=== PATIENT | female | born 1960 | race African-American/Black ===

== ENCOUNTER 2016-10-10 16:18 | Inpatient (IN) | payer MEDICAID ==
[~2016-10-10] VITALS: Ht 154.9 cm; Wt 45.4 kg
[~2016-10-10 16:18] MED LIST: BISACODYL5 MG ORAL; CIPRO500 MG PO; COLACE100 MG ORAL; FERROUS SULFAT325 MG ORAL; HYDROCODON-ACE1 EA13 ORAL; LISINOPRIL5 MG ORAL; METRONIDAZOLE500 MG ORAL; NKM; NORCO 5-325 TA1 EACH ORAL; PROTONIX20 MG ORAL; THEOPHYLLINE A100 MG ORAL; ZOFRAN4 M1 ORAL
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
[2016-10-10 16:57] VITALS: BP 144/102
[2016-10-10 18:47] LABS: BASOPHILS % (AUTO) 0.5 % (0.0-2.0); EOSINOPHILS % (AUTO) 0.2 % (0.0-3.0); LYMPHOCYTES % (AUTO) 18.3 % (20.0-45.0); MEAN CORPUSCULAR HEMOGLOBIN 27.3 PG (27.0-31.0); MEAN CORPUSCULAR HGB CONC 31.1 G/DL (32.0-36.0); MEAN CORPUSCULAR VOLUME 88 FL (80-99); MEAN PLATELET VOLUME 5.8 FL (6.5-10.1); MONOCYTES % (AUTO) 4.1 % (1.0-10.0); NEUTROPHILS % (AUTO) 76.8 % (45.0-75.0); PLATELET COUNT 310 K/UL (150-450); RED BLOOD COUNT 4.42 M/UL (4.20-5.40); RED CELL DISTRIBUTION WIDTH 18.5 % (11.6-14.8); WHITE BLOOD COUNT 4.9 K/UL (4.8-10.8)
[2016-10-10 19:01] LABS: INR 1.1 (0.9-1.1); PROTHROMBIN TIME 11.1 SEC (9.30-11.50)
[2016-10-10 19:02] LABS: ALANINE AMINOTRANSFERASE 12 U/L (3-33); ALBUMIN/GLOBULIN RATIO 0.9 (1.0-2.7); ANION GAP 13 (5-15); ASPARTATE AMINO TRANSFERASE 21 U/L (5-40); CALCIUM 8.8 mg/dL (8.6-10.2); CARBON DIOXIDE 27 mEQ/L (20-30); CHLORIDE 107 mEQ/L (98-107); CREATININE 0.8 mg/dL (0.5-0.9); GLOMERULAR FILTRATION RATE > 60 mL/min (>60); HEMOLYSIS 6; LIPASE 14 U/L (< 60); POTASSIUM 2.9 mEQ/L (3.4-4.9); SODIUM 147 mEQ/L (135-145); TOTAL PROTEIN 6.9 g/dL (6.6-8.7); TROPONIN I < 0.30 ng/mL (<=0.30)
[2016-10-10 19:54] VITALS: BP 140/95
[2016-10-10] MEDS ORDERED: Mylanta II UD 30ml ORAL PRN (22:00)
[2016-10-10] MEDS ORDERED: Miralax 17gm pkt ORAL PRN (22:00)
[2016-10-10] MEDS ORDERED: Nitroglycerin Subl 0.4mg tab (Bottle Of 25) SL PRN (22:00)
[2016-10-10 22:26] VITALS: BP 113/78
[2016-10-10 23:19] VITALS: BP 126/87
[2016-10-11] VITALS (7 sets, daily range): BP systolic 120–133; BP diastolic 82–100
[2016-10-11] MEDS ORDERED: UNOBMED (00:26)
[2016-10-11] MEDS ORDERED: Zosyn 3.375gm inj ONE (02:17)
[2016-10-11] MEDS: D5W w/KCl 20mEq 1,000 ML IV SCH ×2 (02:49→13:50)
[2016-10-11] MEDS: Piperacillin/Tazobactam 3.375 GM in NS 110 ML IVPB SCH ×3 (02:50→16:31)
[2016-10-11 08:14] LABS: BASOPHILS % (AUTO) 0.9 % (0.0-2.0); EOSINOPHILS % (AUTO) 0.3 % (0.0-3.0); LYMPHOCYTES % (AUTO) 17.6 % (20.0-45.0); MEAN CORPUSCULAR HEMOGLOBIN 27.5 PG (27.0-31.0); MEAN CORPUSCULAR HGB CONC 31.4 G/DL (32.0-36.0); MEAN CORPUSCULAR VOLUME 88 FL (80-99); MEAN PLATELET VOLUME 5.9 FL (6.5-10.1); MONOCYTES % (AUTO) 5.1 % (1.0-10.0); NEUTROPHILS % (AUTO) 76.1 % (45.0-75.0); PLATELET COUNT 307 K/UL (150-450); RED BLOOD COUNT 4.63 M/UL (4.20-5.40); RED CELL DISTRIBUTION WIDTH 18.5 % (11.6-14.8); WHITE BLOOD COUNT 4.2 K/UL (4.8-10.8)
[2016-10-11 08:27] LABS: ALANINE AMINOTRANSFERASE 11 U/L (3-33); ALBUMIN/GLOBULIN RATIO 0.8 (1.0-2.7); AMYLASE 32 U/L (10-110); ANION GAP 15 (5-15); ASPARTATE AMINO TRANSFERASE 19 U/L (5-40); CALCIUM 9.1 mg/dL (8.6-10.2); CARBON DIOXIDE 25 mEQ/L (20-30); CHLORIDE 108 mEQ/L (98-107); CREATININE 0.8 mg/dL (0.5-0.9); GLOMERULAR FILTRATION RATE > 60 mL/min (>60); HEMOLYSIS 5; LIPASE 11 U/L (< 60); POTASSIUM 3.3 mEQ/L (3.4-4.9); SODIUM 148 mEQ/L (135-145); TOTAL PROTEIN 6.9 g/dL (6.6-8.7)
[2016-10-11] MEDS: Morphine Sulfate 2mg/ml Inj IVP PRN ×2 (08:58→20:43)
[2016-10-11] MEDS: Heparin 5000 units/ml inj SUBQ SCH ×2 (09:01→21:48)
--- NOTE | 2016-10-11 11:06 | Diagnostic Imaging Report ---
Indication: Abdominal pain and distention. History of cervical carcinoma Technique: Continuous helical transaxial imaging of the abdomen and pelvis was obtained from the lung bases to the pubic symphysis during intravenous contrast administration. Coronal 2-D reformats were also obtained. Study obtained in a Siemens sensation [address] Total Dose length Product (DLP): [address] Dose Index Volume (CTDIvol): 13 mGy Comparison: None Findings: There is massive distention of the colon which is air and fluid-filled. The transition in the area of the sigmoid colon is not well seen. Is a fairly abrupt cut off of column of air within the upper part of the sigmoid colon. Within the pelvis and including this area of nonvisualized sigmoid, there is a suggestion of heterogeneous enhancing tumor. Therefore the possibility of colonic obstruction should be considered. Anterior wall the rectum distal to the suspected area of obstruction is abnormal (for example image 83, series 3). The patient has a history of cervical carcinoma. Pelvic enhancing masses were noted previously as well but colonic distention was not seen on the last study. It is difficult to measure and characterize the pelvic masses present but overall the tumor appears to be left para midline on transaxial images and measures 4 cm transversely 5-6 cm AP and 4 cm craniocaudal. There is a moderate degree of ascites present. The patient is cachectic. There is generalized anasarca noted involving the body wall. The uterus is also heterogeneous and moderately calcified due to fibroids. A fundal 5 cm fibroid is clearly arising from the uterus. There is a second mass, partially calcified measuring 6 x 4 CM, possibly exophytic right posterior lateral fibroid versus part of the cervical carcinoma. Trace bilateral pleural effusions are present with posterior basilar atelectasis. There is a rounded focus that is pleural-based measuring 2 CM at the left lung base. This may be rounded atelectasis or pneumonia, but could also represent a metastatic focus and was seen previously. Followup is recommended. Generalized cardiomegaly is present. Gallstones are present. There is a liver cyst present. Hiatal hernia is noted. There is an abnormal low-density lesion in the spleen measuring approximately 3.5 cm. This could be a benign mass. Metastatic neoplasm is not excluded. The pancreas is grossly unremarkable. Enhancement phases arterial and the kidneys are symmetric in enhancement as such. Impression: Massive colonic distention. The findings are suspected to be secondary to sigmoid rectal obstruction secondary to extensive pelvic tumor from advanced cervical carcinoma. Margins of the tumor are difficult to characterize on this examination in part due to presence of confounding uterine fibroids. Moderate ascites may be malignant ascites. 2 cm left basilar posterior pleural based nodule. Metastatic disease versus rounded atelectasis. Anasarca. Gallstones Liver hypodensities probably cystic. Trace bilateral pleural effusions. The CT scanner at [facility] is accredited by the [employer] and the scans are performed using protocols designed to limit radiation exposure to as low as reasonably achievable to attain images of sufficient resolution adequate for diagnostic evaluation.
--- NOTE | 2016-10-11 11:47 | Diagnostic Imaging Report ---
Indication: NG tube Comparison: None A single view chest radiograph was obtained. Findings: NG tube is present and well situated with both the proximal port and tip in the stomach. There is a moderate gaseous distention of the colon. Demonstrated as well. Heart is enlarged. Impression: NG tube in good position
--- NOTE | 2016-10-11 16:37 | History and Physical ---
History of Present Illness General Date patient seen: Oct 11, 2016 Reason for Hospitalization: Abdominal Pain Present Illness HPI 56-year-old female with hx of cervical cancer, brought in by paramedics after increased bowel pain, nausea and vomiting. The patient denied having any fever. She had not been vomiting. Pt was diagnosed to have ileus, received NG tube to suction in ER and admitted for further work up. Allergies: Coded Allergies: No Known Allergies (Unverified , 04/13/15) Medication History Scheduled Lisinopril (Lisinopril*), 5 MG ORAL Q12HR No Known Medications* (NKM - No Known Medications*), 0 ., (Reported) No Known Medications* (NKM - No Known Medications*), 0 ., (Reported) No Known Medications* (NKM - No Known Medications*), 0 ., (Reported) Pantoprazole Sodium (Protonix), 40 MG ORAL DAILY, (Reported) Pantoprazole Sodium (Protonix), 40 MG ORAL DAILY, (Reported) Theophylline (Theodur*), 100 MG ORAL EVERY 12 HOURS Scheduled PRN Ondansetron (Zofran), 4 MG ORAL Q8HR PRN for Nausea & Vomiting, (Reported) Miscellaneous Medications Unable to Obtain Medications (Unable To Obtain Meds), (Reported) Patient History Healthcare decision maker Resuscitation status Full Code Advanced Directive on File Past Medical/Surgical History Past Medical/Surgical History: (1) Metastatic adenocarcinoma Review of Systems All Other Systems: negative except mentioned in HPI Physical Exam General Appearance: cachetic Lines, tubes and drains: peripheral HEENT: normocephalic, atraumatic Neck: non-tender, normal alignment Respiratory/Chest: chest wall non-tender, lungs clear Breasts: no masses Cardiovascular/Chest: normal peripheral pulses Abdomen: normal bowel sounds Last 24 Hour Vital Signs Date Time Temp Pulse Resp B/P Pulse Ox O2 Delivery O2 Flow Rate FiO2 10/11/16 11:19 98.0 100 20 121/85 97 Room Air 10/11/16 09:28 97.9 10/11/16 08:07 97.9 95 19 132/92 99 Room Air 10/11/16 04:00 96.0 91 18 120/82 100 Room Air 10/11/16 01:00 97.7 98 18 129/96 99 Room Air 10/11/16 00:34 97.8 96 18 126/87 100 Room Air 10/11/16 00:00 96.6 104 18 133/100 96 Room Air 10/10/16 23:19 97.8 96 18 126/87 100 Room Air 10/10/16 22:26 97.8 102 19 113/78 100 Room Air 10/10/16 19:54 97.8 104 22 140/95 99 Room Air 10/10/16 16:57 97.8 98 18 144/102 99 Room Air Intake and Output 10/10/16 10/11/16 19:00 07:00 Intake Total 110.0 ml Output Total 50 ml Balance 60.0 ml IV Total 110.0 ml Output Urine Total 0 ml Gastric Drainage Total 50 ml Laboratory Tests Test 10/10/16 18:36 10/11/16 07:15 White Blood Count 4.9 K/UL (4.8-10.8) 4.2 K/UL (4.8-10.8) L Red Blood Count 4.42 M/UL (4.20-5.40) 4.63 M/UL (4.20-5.40) Hemoglobin 12.0 G/DL (12.0-16.0) 12.7 G/DL (12.0-16.0) Hematocrit 38.7 % (37.0-47.0) 40.6 % (37.0-47.0) Mean Corpuscular Volume 88 FL (80-99) 88 FL (80-99) Mean Corpuscular Hemoglobin 27.3 PG (27.0-31.0) 27.5 PG (27.0-31.0) Mean Corpuscular Hemoglobin Concent 31.1 G/DL (32.0-36.0) L 31.4 G/DL (32.0-36.0) L Red Cell Distribution Width 18.5 % (11.6-14.8) H 18.5 % (11.6-14.8) H Platelet Count 310 K/UL (150-450) 307 K/UL (150-450) Mean Platelet Volume 5.8 FL (6.5-10.1) L 5.9 FL (6.5-10.1) L Neutrophils (%) (Auto) 76.8 % (45.0-75.0) H 76.1 % (45.0-75.0) H Lymphocytes (%) (Auto) 18.3 % (20.0-45.0) L 17.6 % (20.0-45.0) L Monocytes (%) (Auto) 4.1 % (1.0-10.0) 5.1 % (1.0-10.0) Eosinophils (%) (Auto) 0.2 % (0.0-3.0) 0.3 % (0.0-3.0) Basophils (%) (Auto) 0.5 % (0.0-2.0) 0.9 % (0.0-2.0) Prothrombin Time 11.1 SEC (9.30-11.50) Prothromb Time International Ratio 1.1 (0.9-1.1) Activated Partial Thromboplast Time 27 SEC (23-33) 25 SEC (23-33) Sodium Level 147 mEQ/L (135-145) H 148 mEQ/L (135-145) H Potassium Level 2.9 mEQ/L (3.4-4.9) L 3.3 mEQ/L (3.4-4.9) L Chloride Level 107 mEQ/L (98-107) 108 mEQ/L (98-107) H Carbon Dioxide Level 27 mEQ/L (20-30) 25 mEQ/L (20-30) Anion Gap 13 (5-15) 15 (5-15) Blood Urea Nitrogen 17 mg/dL (7-23) 19 mg/dL (7-23) Creatinine 0.8 mg/dL (0.5-0.9) 0.8 mg/dL (0.5-0.9) Estimat Glomerular Filtration Rate > 60 mL/min (>60) > 60 mL/min (>60) Glucose Level 131 mg/dL (74-106) H 102 mg/dL (74-106) Calcium Level 8.8 mg/dL (8.6-10.2) 9.1 mg/dL (8.6-10.2) Total Bilirubin 0.5 mg/dL (0.0-1.2) 0.6 mg/dL (0.0-1.2) Aspartate Amino Transf (AST/SGOT) 21 U/L (5-40) 19 U/L (5-40) Alanine Aminotransferase (ALT/SGPT) 12 U/L (3-33) 11 U/L (3-33) Alkaline Phosphatase 45 U/L (35-104) 46 U/L (35-104) Troponin I < 0.30 ng/mL (<=0.30) Total Protein 6.9 g/dL (6.6-8.7) 6.9 g/dL (6.6-8.7) Albumin 3.4 g/dL (3.5-5.2) L 3.1 g/dL (3.5-5.2) L Globulin 3.5 g/dL 3.8 g/dL Albumin/Globulin Ratio 0.9 (1.0-2.7) L 0.8 (1.0-2.7) L Lipase 14 U/L (< 60) 11 U/L (< 60) Amylase Level 32 U/L (10-110) Height (Feet): 5 Height (Inches): 1.00 Weight (Pounds): 100 Medications Current Medications Medications (Trade) Dose Ordered Sig/Renay Route PRN Reason Start Time Stop Time Status Last Admin Dose Admin Acetaminophen (Tylenol) 650 mg Q4H PRN ORAL fever 10/10/16 22:00 11/09/16 21:59 Al Hydroxide/Mg Hydroxide (Mylanta II) 30 ml Q6H PRN ORAL dyspepsia 10/10/16 22:00 11/09/16 21:59 Dextrose STAT PRN IV Hypoglycemia 10/10/16 22:00 11/09/16 21:59 Dextrose/ Electrolytes (D5W w/KCl 20mEq) 1,000 ml @ 75 mls/hr [id number] IV 10/11/16 00:30 11/10/16 00:29 10/11/16 02:49 Diphenhydramine HCl (Benadryl) 25 mg Q6H PRN ORAL Itching/Pruritis 10/10/16 22:00 11/09/16 21:59 Heparin Sodium (Porcine) (Heparin 5000 units/ml) 5,000 units EVERY 12 HOURS SUBQ 10/11/16 09:00 11/10/16 08:59 10/11/16 09:01 Morphine Sulfate (Morphine Sulfate) 2 mg Q4H PRN IVP severe Pain (Pain Scale 7-10) 10/10/16 22:00 10/17/16 21:59 10/11/16 08:58 Nitroglycerin (Ntg) 0.4 mg Q5M X 3 DOSES PRN SL Prn Chest Pain 10/10/16 22:00 11/09/16 21:59 Ondansetron HCl (Zofran) 4 mg Q6H PRN IVP Nausea & Vomiting 10/10/16 22:00 11/09/16 21:59 Piperacillin Sod/ Tazobactam Sod 3.375 gm/Sodium Chloride 110 ml @ 27.5 mls/hr Q8H IVPB 10/11/16 00:30 10/18/16 00:29 10/11/16 16:31 Polyethylene Glycol (Miralax) 17 gm HSPRN PRN ORAL Constipation 10/10/16 22:00 11/09/16 21:59 Temazepam (Restoril) 15 mg HSPRN PRN ORAL Insomnia 10/10/16 22:00 10/17/16 21:59 Assessment/Plan Problem List: (1) SBO (small bowel obstruction) ICD Codes: K56.69 - SBO (small bowel obstruction) SNOMED: 377189501 (2) Metastatic adenocarcinoma ICD Codes: C79.9 - Secondary malignant neoplasm of unspecified site SNOMED: 8182443, 049589065 (3) Colonic obstruction ICD Codes: K56.60 - Unspecified intestinal obstruction SNOMED: 58555889 (4) Abdominal distension ICD Codes: R14.0 - Abdominal distension SNOMED: 59195131 Assessment/Plan Npo Iv fluids Surgery consult check electrolytes. APPLE COLON Oct 11, 2016 16:37
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
--- NOTE | 2016-10-11 19:14 | General Progress Note ---
Progress Note Progress Note Surgery: Patient seen and examined at bedside. Please refer to Dr. Garcia's consult note for details of surgical consultation. I am seeing the patient for per operative planning. Patient has history of cervical tumor which she has unfortunately not continued care for. She has known about the tumor and its severity but has not been compliant with medical care. She presented recently with abdominal pain, nausea, emesis, and massive abdominal distention. When seen at bedside, patient is uncomfortable but stable. she states that her abdomen has been enlarging for weeks now. Last two weeks it has gotten more severe and she has been having worsening abdominal pain. She has been eating but throws up every other day or more often depending on how much she has eaten. She states that she does not have significant bowel movements but does have small liquid bm's every few days. She has been losing weight and looks fairly cachectic when seen. Her abdomen is severely distended and tympanic. it is tender but no peritonitis. CT reviewed and demonstrates massive colonic dilatation with transition point distally where large tumor seen. She also has significant ascites. She does not desire chemotx or radiation and has not wanted it in the past. When speaking to her about her goals, she states that she just wants to continue with treatment so that she can eat. I explained to her in detail the above findings. I explained that if nothing is done she is at risk for perforation and her condition will deteriorate. When discussing treatment options with her, she states that she would be okay to a diverting loop colostomy so that she can start eating again. She understands the severity of her condition and expresses that she just wants to be able to eat again. I explained to her that she is a high risk surgery given multiple prior abdominal operations including one in 2011 where she was noted to have lots of adhesions and hostile abdomen. I explained to her that she is at risk for potential enterotomies, bowel resections, re operations, drains, wound infection , wound dehiscence, and ostomy. She also has high risk for bleeding, infection , post operative pulmonary and cardiac complications. She is very malnourished and cachectic on exam. Unfortunately she is near total obstruction if not totally obstructed and needs urgent surgery. 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 This would complicate surgery and potential surgery can be futile. Her prognosis is guarded given above and she understands this. She expressed desire to proceed with surgery knowing all of the above. Will schedule her for surgery tomorrow morning. Toni Marquis Oct 11, 2016 19:14
--- NOTE | 2016-10-11 19:16 | General Progress Note ---
Progress Note Progress Note Full consult dictated. Succinctly: Large bowel obstruction in recto-sigmoid colon secondary to large cervical CA diagnosed at [facility] last year, no chemoradiation tx because of patient's poor compliance, now here on several occasions because of colonic obstruction. Cervical CA, large, no obvious distant mets, but local extension with colonic obstruction Ascites Malnutrition Dehydration Patient mneeds urgent loop colostomy for decompression, understands risks, possible complications because of ascites, obstruction and overall advanced disease and consents. Scheduled for tomorrow am with Drs. Marquis and Tank. J CARLOS BAER Oct 11, 2016 19:16
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
[2016-10-12] VITALS (30 sets, daily range): BP systolic 80–129; BP diastolic 45–88
[2016-10-12] MEDS: Piperacillin/Tazobactam 3.375 GM in NS 110 ML IVPB SCH ×4 (00:49→22:00)
[2016-10-12] MEDS: Morphine Sulfate 2mg/ml Inj IVP PRN ×2 (00:59→05:51)
[2016-10-12] MEDS: D5W w/KCl 20mEq 1,000 ML IV SCH ×2 (00:59→21:25)
[2016-10-12 07:15] LABS: ALANINE AMINOTRANSFERASE 9 U/L (3-33); ALBUMIN/GLOBULIN RATIO 0.9 (1.0-2.7); ANION GAP 16 (5-15); ASPARTATE AMINO TRANSFERASE 17 U/L (5-40); CALCIUM 9.2 mg/dL (8.6-10.2); CARBON DIOXIDE 25 mEQ/L (20-30); CHLORIDE 104 mEQ/L (98-107); CREATININE 0.8 mg/dL (0.5-0.9); GLOMERULAR FILTRATION RATE > 60 mL/min (>60); HEMOLYSIS 1; MAGNESIUM 2.1 mg/dL (1.7-2.5); POTASSIUM 3.9 mEQ/L (3.4-4.9); SODIUM 145 mEQ/L (135-145); TOTAL PROTEIN 6.4 g/dL (6.6-8.7)
[2016-10-12 07:26] LABS: BASOPHILS % (AUTO) 0.4 % (0.0-2.0); EOSINOPHILS % (AUTO) 0.4 % (0.0-3.0); LYMPHOCYTES % (AUTO) 23.7 % (20.0-45.0); MEAN CORPUSCULAR HEMOGLOBIN 28.3 PG (27.0-31.0); MEAN CORPUSCULAR HGB CONC 32.3 G/DL (32.0-36.0); MEAN CORPUSCULAR VOLUME 87 FL (80-99); MEAN PLATELET VOLUME 6.3 FL (6.5-10.1); MONOCYTES % (AUTO) 5.4 % (1.0-10.0); NEUTROPHILS % (AUTO) 70.1 % (45.0-75.0); PLATELET COUNT 333 K/UL (150-450); RED BLOOD COUNT 3.99 M/UL (4.20-5.40); RED CELL DISTRIBUTION WIDTH 18.6 % (11.6-14.8); WHITE BLOOD COUNT 3.6 K/UL (4.8-10.8)
[2016-10-12] MEDS: Heparin 5000 units/ml inj SUBQ SCH ×2 (07:53→21:33)
[2016-10-12] MEDS ORDERED: Pantoprazole Inj IVP SCH (09:00)
[2016-10-12] MEDS ORDERED: Propofol 10mg/ml 100ml btl IV ONE (12:45)
[2016-10-12] MEDS ORDERED: Midazolam 2mg/2ml Inj ONE (12:45)
[2016-10-12] MEDS ORDERED: NS Irrig 1000ml ONE (12:45)
[2016-10-12] MEDS ORDERED: Zemuron 50mg/5ml Inj IV ONE (12:45)
[2016-10-12] MEDS ORDERED: ePHEDrine 50mg/ml Inj ONE ×3 (12:45→15:08)
[2016-10-12] MEDS ORDERED: fentaNYL 100 mcg/2 mL IV ONE (12:45)
[2016-10-12] MEDS ORDERED: Sterile Water Irrig 1000ml IRRIG ONE (12:45)
[2016-10-12] MEDS ORDERED: NS Irrig 1000ml IRRIG ONE (12:50)
--- NOTE | 2016-10-12 13:02 | General Progress Note ---
Progress Note Progress Note Surgery: Patient seen and examined at bedside this morning. States still has abdominal pain that is not improved. No flatus or BM. No nausea or emesis. NG tube output minimal. Rectal exam demonstrated a large hard non-mobile completely obstructing extrinsic tumor. I again discussed all findings with her. she states that she has thought about it overnight and knowing the high risks, morbidity, and potential mortality from procedure she would still like to proceed. She has spoken to her daughter Carolyn as well as have I. Daughter away of mothers condition. Will proceed with exploratory lap with hopes of diverting ostomy. She understands that given multiple prior surgery and progressive cancer this may not be possible but would like to proceed. All questions answered. consent obtained. will proceed with surgery. Toni Marquis Oct 12, 2016 13:02
--- NOTE | 2016-10-12 13:20 | GI Progress Note ---
Assessment/Plan Problems: (1) Dilated bowel ICD Codes: K59.3 - Megacolon, not elsewhere classified SNOMED: 98445302 (2) Abdominal pain ICD Codes: R10.9 - Abdominal pain SNOMED: 62787910 (3) Anemia ICD Codes: D64.9 - Anemia SNOMED: 666433524 (4) SBO (small bowel obstruction) ICD Codes: K56.69 - SBO (small bowel obstruction) SNOMED: 603071980 (5) Metastatic adenocarcinoma ICD Codes: C79.9 - Secondary malignant neoplasm of unspecified site SNOMED: 7060773, 049558344 Status: unchanged Status Narrative Discussed with Dr. Valdez. Assessment/Plan lipase unremarkable per surgery >> large hard non-mobile completely obstructing extrinsic tumor surgical to proceed maintain NPO + IVFs maintain NGTFs for bowel decompression >> low output ppi fu labs Subjective Subjective abdominal pain no improvement abdominal distention Objective Last 24 Hour Vital Signs Date Time Temp Pulse Resp B/P Pulse Ox O2 Delivery O2 Flow Rate FiO2 10/12/16 11:35 97.2 76 15 115/77 98 10/12/16 08:16 97.0 83 15 125/82 100 Room Air 10/12/16 04:00 97.7 83 18 129/88 97 Room Air 10/12/16 00:00 97.6 80 18 114/84 100 Room Air 10/11/16 21:48 97.0 10/11/16 19:00 97.3 95 20 124/92 99 Room Air 10/11/16 16:00 97.0 93 20 126/90 100 Room Air Intake and Output 10/11/16 10/12/16 18:59 06:59 Intake Total 335 ml 525 ml Output Total 130 ml 175 ml Balance 205 ml 350 ml Intake Oral 0 ml IV Total 335 ml 525 ml Gastric Drainage Total 130 ml Other 175 ml # Voids 1 4 # Bowel Movements 1 Laboratory Tests Test 10/12/16 05:30 White Blood Count 3.6 K/UL (4.8-10.8) L Red Blood Count 3.99 M/UL (4.20-5.40) L Hemoglobin 11.3 G/DL (12.0-16.0) L Hematocrit 34.8 % (37.0-47.0) L Mean Corpuscular Volume 87 FL (80-99) Mean Corpuscular Hemoglobin 28.3 PG (27.0-31.0) Mean Corpuscular Hemoglobin Concent 32.3 G/DL (32.0-36.0) Red Cell Distribution Width 18.6 % (11.6-14.8) H Platelet Count 333 K/UL (150-450) Mean Platelet Volume 6.3 FL (6.5-10.1) L Neutrophils (%) (Auto) 70.1 % (45.0-75.0) Lymphocytes (%) (Auto) 23.7 % (20.0-45.0) Monocytes (%) (Auto) 5.4 % (1.0-10.0) Eosinophils (%) (Auto) 0.4 % (0.0-3.0) Basophils (%) (Auto) 0.4 % (0.0-2.0) Sodium Level 145 mEQ/L (135-145) Potassium Level 3.9 mEQ/L (3.4-4.9) Chloride Level 104 mEQ/L (98-107) Carbon Dioxide Level 25 mEQ/L (20-30) Anion Gap 16 (5-15) H Blood Urea Nitrogen 24 mg/dL (7-23) H Creatinine 0.8 mg/dL (0.5-0.9) Estimat Glomerular Filtration Rate > 60 mL/min (>60) Glucose Level 109 mg/dL (74-106) H Calcium Level 9.2 mg/dL (8.6-10.2) Phosphorus Level 4.0 mg/dL (2.5-4.8) Magnesium Level 2.1 mg/dL (1.7-2.5) Total Bilirubin 0.5 mg/dL (0.0-1.2) Aspartate Amino Transf (AST/SGOT) 17 U/L (5-40) Alanine Aminotransferase (ALT/SGPT) 9 U/L (3-33) Alkaline Phosphatase 43 U/L (35-104) Total Protein 6.4 g/dL (6.6-8.7) L Albumin 3.1 g/dL (3.5-5.2) L Globulin 3.3 g/dL Albumin/Globulin Ratio 0.9 (1.0-2.7) L Height (Feet): 5 Height (Inches): 1.00 Weight (Pounds): 100 General Appearance: no apparent distress, alert, thin Cardiovascular: normal rate Respiratory/Chest: normal breath sounds Abdominal Exam: distended - hard, firm Kym Javier N.P. Oct 12, 2016 13:20
--- NOTE | 2016-10-12 13:41 | Pre-Procedure Note/Attestation ---
Pre-Procedure Note/Attestation Complete Prior to Procedure Planned Procedure: not applicable Procedure Narrative: exploratory laparotomy, possible bowel resection, ostomy creation Indications for Procedure Pre-Operative Diagnosis: complete large bowel obstruction Attestation I attest that I discussed the nature of the procedure; its benefits; risks and complications; and alternatives (and the risks and benefits of such alternatives ), prior to the procedure, with the patient (or the patient's legal branch service representative). I attest that, if there was a reasonable possibility of needing a blood transfusion, the patient (or the patient's legal branch service representative) was given the [facility] standardized written summary, pursuant to the Michael Stephanie Blood Safety Act ([place] Health and Safety Code # 1645, as amended). I attest that I re-evaluated the patient just prior to the surgery and that there has been no change in the patient's H&P, except as documented below: Toni Marquis Oct 12, 2016 13:41
[2016-10-12] MEDS ORDERED: Tubing IV Secondary IV ONE (15:00)
[2016-10-12] MEDS ORDERED: D5W 275ml ONE (15:00)
[2016-10-12] MEDS ORDERED: Bacitracin 50000 Units Vial ONE (15:22)
[2016-10-12] MEDS ORDERED: DOPamine 400mg/250ml 250 ML IV ONE (15:29)
--- NOTE | 2016-10-12 16:29 | Anethesia Preoperative Eval ---
Anesthesia Pre-op PMH/ROS General Date of Evaluation: Oct 12, 2016 Time of Evaluation: 12:00 Anesthesiologist: Gianni ASA Score: ASA 4 Mallampati Score Class I : Soft palate, uvula, fauces, pillars visible Class II: Soft palate, uvula, fauces visible Class III: Soft palate, base of uvula visible Class IV: Only hard plate visible Mallampati Classification: Class II Surgeon: Benitez Diagnosis: Bowel obstruction, metastatic cervical CA Surgical Procedure: Exploratory laparotomy, ileostomy, partial colon resection Family History: no anesthesia problems Allergies: Coded Allergies: No Known Allergies (Unverified , 04/13/15) Medications: see eMAR Past Medical History Cardiovascular: Reports: HTN, other - Heart failure (as per patient) Pulmonary: Denies: COPD, RODNEY, asthma, other Gastrointestinal/Genitourinary: Denies: CRI, ESRD, GERD, other Neurologic/Psychiatric: Denies: CVA, TIA, dementia, depression/anxiety, other Endocrine: Denies: DM, hypothyroidism, other, steroids HEENT: Denies: TAKOTNA (L), TAKOTNA (R), cataract (L), cataract (R), glaucoma, other Hematology/Immune: Denies: DVT, anemia, bleeding disorder, other PMH Narrative: HTN, ?heart failure?, cervical CA (metastatic), bowel obstruction Anesthesia Pre-op Phys. Exam Physician Exam Last Vital Signs Date Time Temp Pulse Resp B/P Pulse Ox O2 Delivery O2 Flow Rate FiO2 10/12/16 11:35 97.2 76 15 115/77 98 10/12/16 08:16 Room Air Constitutional: NAD, other - Cachectic Neurologic: CN 2-12 intact Cardiovascular: RRR, no M/R/G Respiratory: CTA Gastrointestinal: S/NT/ND Airway Exam Mallampati Score: Class II MO: full ROM: full Teeth: missing, broken Anesthesia Pre-op A/P Labs Hematology Test 10/12/16 05:30 White Blood Count 3.6 K/UL (4.8-10.8) L Red Blood Count 3.99 M/UL (4.20-5.40) L Hemoglobin 11.3 G/DL (12.0-16.0) L Hematocrit 34.8 % (37.0-47.0) L Mean Corpuscular Volume 87 FL (80-99) Mean Corpuscular Hemoglobin 28.3 PG (27.0-31.0) Mean Corpuscular Hemoglobin Concent 32.3 G/DL (32.0-36.0) Red Cell Distribution Width 18.6 % (11.6-14.8) H Platelet Count 333 K/UL (150-450) Mean Platelet Volume 6.3 FL (6.5-10.1) L Neutrophils (%) (Auto) 70.1 % (45.0-75.0) Lymphocytes (%) (Auto) 23.7 % (20.0-45.0) Monocytes (%) (Auto) 5.4 % (1.0-10.0) Eosinophils (%) (Auto) 0.4 % (0.0-3.0) Basophils (%) (Auto) 0.4 % (0.0-2.0) Chemistry Test 10/12/16 05:30 Sodium Level 145 mEQ/L (135-145) Potassium Level 3.9 mEQ/L (3.4-4.9) Chloride Level 104 mEQ/L (98-107) Carbon Dioxide Level 25 mEQ/L (20-30) Anion Gap 16 (5-15) H Blood Urea Nitrogen 24 mg/dL (7-23) H Creatinine 0.8 mg/dL (0.5-0.9) Estimat Glomerular Filtration Rate > 60 mL/min (>60) Glucose Level 109 mg/dL (74-106) H Calcium Level 9.2 mg/dL (8.6-10.2) Phosphorus Level 4.0 mg/dL (2.5-4.8) Magnesium Level 2.1 mg/dL (1.7-2.5) Total Bilirubin 0.5 mg/dL (0.0-1.2) Aspartate Amino Transf (AST/SGOT) 17 U/L (5-40) Alanine Aminotransferase (ALT/SGPT) 9 U/L (3-33) Alkaline Phosphatase 43 U/L (35-104) Total Protein 6.4 g/dL (6.6-8.7) L Albumin 3.1 g/dL (3.5-5.2) L Globulin 3.3 g/dL Albumin/Globulin Ratio 0.9 (1.0-2.7) L Studies Pre-op Studies: EKG Risk Assessment & Plan Assessment: Metastatic cervical CA and bowel obstruction now for e-lap, partial colon resection, ileostomy Plan: GETA, CVP Status Change Before Surgery: No Pre-Antibiotics Drug: Zosyn Given Within 1 Hr of Incision: Yes Time Given: 14:10 BRAEDEN FAYE M.D. Oct 12, 2016 16:29
[2016-10-12] MEDS ORDERED: LORazepam Inj 2mg/ml 1ml IV PRN ×2 (16:30→20:15)
[2016-10-12] MEDS ORDERED: Meperidine 25mg/ml Inj IV PRN ×2 (16:30→20:15)
[2016-10-12] MEDS ORDERED: Hydromorphone 0.5mg/0.5ml inj IVP PRN ×2 (16:30→20:15)
--- NOTE | 2016-10-12 16:31 | Immediate Post-Op Evaluation ---
Immediate Post-Op Evalulation Immediate Post-Op Evalulation Procedure: Exploratory laparotomy, partial bowel resection, ileostomy Date of Evaluation: Oct 12, 2016 Time of Evaluation: 17:20 IV Fluids: 5260 Estimated Blood Loss: 200 Urinary Output: 140 Blood Pressure Systolic: 88 Blood Pressure Diastolic: 53 Pulse Rate: 86 Respiratory Rate: 10 O2 Sat by Pulse Oximetry: 100 Temperature (Fahrenheit): 96.8 Pain Score (1-10): 0 Nausea: No Vomiting: No Complications No complication Patient Status: no response, ventilated, none Hydration Status: adequate Drug: Zosyn Given Within 1 Hr of Incision: Yes Time Given: 14:10 BRAEDEN FAYE M.D. Oct 12, 2016 16:31
--- NOTE | 2016-10-12 17:13 | Brief Operative Note ---
Immediate Post Operative Note Operative Note Pre-op Diagnosis: complete large bowel obstruction Procedure: exploratory laparotomy, bowel resection, end ileostomy creation, mucus fistula Post-op Diagnosis: same as pre-op Findings: consistent w/pre-op dx studies Surgeon: estefani Anesthesiologist: Gianni Anesthesia: general Specimen: yes Complications: none Condition: stable Fluids: see records Estimated Blood Loss: volume - 50 Drains: KATE Implant(s) used?: No Toni Marquis Oct 12, 2016 17:13
[2016-10-12] MEDS ORDERED: DOPamine 400mg/250ml 250 ML IV SCH (18:00)
[2016-10-12 18:08] LABS: ABG BASE EXCESS -1.1
[2016-10-12] MEDS ORDERED: Nitroglycerin Subl 0.4mg tab (Bottle Of 25) SL PRN (21:00)
[2016-10-12] MEDS ORDERED: Mylanta II UD 30ml ORAL PRN (21:00)
[2016-10-12] MEDS ORDERED: Morphine Sulfate 2mg/ml Inj IVP PRN (21:00)
[2016-10-12] MEDS ORDERED: Miralax 17gm pkt ORAL PRN (22:00)
--- NOTE | 2016-10-12 22:56 | Pulmonolgy Critical Care Note ---
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 Discussed with: nurses Critical Care - Objective Last 24 Hour Vital Signs Date Time Temp Pulse Resp B/P Pulse Ox O2 Delivery O2 Flow Rate FiO2 10/12/16 22:00 96 20 89/68 94 Mechanical Ventilator 100 10/12/16 21:30 92 20 86/68 94 Mechanical Ventilator 100 10/12/16 21:15 92 20 80/62 94 Mechanical Ventilator 100 10/12/16 21:00 92 20 86/68 94 Mechanical Ventilator 100 10/12/16 20:58 89 18 80 10/12/16 20:45 92 20 84/60 94 Mechanical Ventilator 100 10/12/16 20:30 92 20 86/68 94 Mechanical Ventilator 100 10/12/16 20:15 92 20 84/68 94 Mechanical Ventilator 100 10/12/16 20:00 92 20 94/56 94 Mechanical Ventilator 100 10/12/16 19:47 88 32 80 10/12/16 19:45 92 20 86/68 94 Mechanical Ventilator 100 10/12/16 19:30 92 20 86/68 94 Mechanical Ventilator 100 10/12/16 19:15 81 17 94/56 96 Mechanical Ventilator 100 10/12/16 19:00 80 10/12/16 19:00 80 17 94/53 96 Mechanical Ventilator 100 10/12/16 18:45 84 18 92/53 93 Mechanical Ventilator 100 10/12/16 18:30 85 18 82/52 94 Mechanical Ventilator 100 10/12/16 18:12 97.1 85 10 87/58 94 Endotracheal Tube 70 10/12/16 18:00 88 10 92/55 94 Endotracheal Tube 70 10/12/16 17:45 81 10 91/57 97 Endotracheal Tube 70 10/12/16 17:35 70 10/12/16 17:35 76 10 84/50 98 Endotracheal Tube 70 10/12/16 17:18 76 10 82/48 95 Endotracheal Tube 50 10/12/16 17:14 86 10 100 10/12/16 17:13 86 10 81/51 95 Endotracheal Tube 50 10/12/16 17:10 50 10/12/16 17:08 88 10 88/52 95 Endotracheal Tube 50 10/12/16 17:03 96.8 76 10 86/55 95 Endotracheal Tube 50 10/12/16 17:03 50 10/12/16 11:35 97.2 76 15 115/77 98 10/12/16 08:16 97.0 83 15 125/82 100 Room Air 10/12/16 08:00 88 10 92/55 94 Endotracheal Tube 70 10/12/16 04:00 97.7 83 18 129/88 97 Room Air 10/12/16 00:00 97.6 80 18 114/84 100 Room Air Status: sedated Condition: critical Neck: full ROM Lungs: chest wall tender Heart: HR/BP stable, regular Abdomen: soft, active bowel sounds, feeding tube Critical Care - Subjective ICU Day: 1 Intubation Day: 1 Condition: critical EKG Rhythm: Sinus Rhythm FI02: 100 Vent Support Breath Rate: 14 Vent Support Mode: AC Vent Tidal Volume: 450 Sputum Amount: Scant PEEP: 5.0 PIP: 28 I&O: Intake and Output 10/11/16 10/12/16 19:00 07:00 Intake Total 335 ml 525 ml Output Total 130 ml 175 ml Balance 205 ml 350 ml Intake Oral 0 ml IV Total 335 ml 525 ml Gastric Drainage Total 130 ml Other 175 ml # Voids 1 4 # Bowel Movements 1 ET-Tube: 6.5 ET Position: 24 NOAMYAMINI NARANJODIAMOND Oct 12, 2016 22:56
[2016-10-13] VITALS (57 sets, daily range): BP systolic 79–122; BP diastolic 38–87
--- NOTE | 2016-10-13 03:38 | Operative Note - Dictated ---
DATE OF OPERATION: 10/12/2016 PREOPERATIVE DIAGNOSIS: Complete large bowel obstruction caused by large cervical cancer. POSTOPERATIVE DIAGNOSES: 1. Complete bowel obstruction caused by large cervical cancer. 2. A small perforation of the distal terminal ileum. OPERATION PERFORMED: 1. Exploratory laparotomy. 2. Small bowel resection. 3. Creation of end ileostomy. 4. Creation of mucous fistula. 5. Lysis of adhesions. ATTENDING SURGEON: Toni Marquis M.D. HEAVY DUTY MECHANIC: None. ANESTHESIOLOGIST: Michael Archer M.D. ANESTHESIA: General SUPERVISOR DRY PASTE. COMPLICATIONS: None. ESTIMATED BLOOD LOSS: 50 mL. IV FLUIDS: Please see anesthesia records. SPECIMENS: Terminal ileum and cecum sent to pathology for review as well as peritoneal fluids for cytology. DRAINS: A 19-Tongan Edgard-Chan drain left in the pelvis. IMPLANTS: None. WOUND CLASSIFICATION: Class IV. CONDITION: Stable. OPERATIVE FINDINGS: 1. Severe distention of the small bowel and colon. 2. Peritoneal seeding of tumor implants throughout the abdomen in all four quadrants with the main focus in the pelvis and lower quadrants. 3. Small perforation of the area of tumor invasion into the distal small bowel/terminal ileum. 4. An inadvertent enterotomy into the cecum upon entering the abdomen. 5. Murky ascites fluid. 6. Extensive adhesions throughout the abdomen from multiple prior surgeries. INDICATIONS FOR PROCEDURE: The patient is a 56-year-old female, who presented to the [facility] complaining of worsening abdominal pain, nausea, vomiting, and obstipation. The patient has been in the hospital multiple times in the past and has had multiple abdominal surgeries in the past as well. During this admission, CT scan was obtained and a large invading tumor was noted in the pelvis from her known diagnosis of cervical cancer. This tumor was causing complete bowel obstruction at the area of the distal sigmoid colon. The patient's large bowel was significantly dilated. On exam, the patient was significantly distended and tender. Rectal exam demonstrated a hard fixed posteriorly displacing extrinsic tumor causing a complete obstruction. Given the patient's prior surgeries, medical condition, and overall state, she was very high risk for surgery with significant morbidity and mortality involved. I talked to the patient and her daughter about all the above findings in detail. I explained to them that she is very sick, cachectic, malnourished, and with likely stage IV cervical cancer that has gone untreated. I explained to them that she is now completely obstructed and impending perforation. I explained to them that her abdominal exam was worsening and without operation, her current status is unlikely be compatible with life. After doing so, the patient and her daughter expressed understanding and desired to proceed with surgical intervention. They expressed understanding of the significantly high morbidity and mortality risks associated with the surgery and the need for exploration with potential bowel resection and ostomy creation. The patient consented and consent is in the chart prior to entering the operative room. OPERATIVE NOTE: The patient was taken to the operating room, placed on the operating table in supine position with bilateral arms up. All bony prominences were well padded with gel pads. SCDs were placed. A Atkinson catheter was inserted under standard sterile fashion. The patient had only one small peripheral line and very poor peripheral veins, so anesthesiologist placed a central venous catheter. General anesthesia was then induced and the patient was intubated. Preoperative time-out was taken to identify the patient, procedure, operative staff, and surgical staff. Abdomen was then prepped and draped in standard surgical fashion. The patient had a very large xiphoid to pubic prior surgical incision, which was well healed. The patient's abdomen was significantly distended and tense. Decision made to go through the prior midline abdominal incision given that an ostomy was going to be created. The prior midline incision was used to enter the abdomen. Upon entering the abdomen, there were significant adhesions noted throughout the abdomen and a large amount of murky ascites was evacuated. Given the patient's known cervical cancer, this was sent for cytology. Once fluid was evacuated, we continued to enter the abdomen with necessity for significant release of adhesions. In the lower portion of the abdomen as entering, there was inadvertent enterotomy made into the cecum. Once this was made, the cecum was decompressed and the 3-0 silk sutures were used to temporize the perforation. The remaining of the small bowel and colon was freed up from its midline and peritoneal attachments. Once this was completed, the bowel was evaluated and noted to be viable. In the pelvis, there was a significantly enlarged metastatic cervical tumor with peritoneal implants throughout the pelvis, right and left lower quadrants, and right and left upper quadrants. Peritoneal seeding from the tumor was in the left lower quadrant around the area of the sigmoid colon. This was causing significant adhesions of the sigmoid colon to the peritoneal abdominal wall. There was also significant portion of small bowel that was adhesed to the sigmoid colon in the left abdomen. There was an area of distal ileum that was attached to the tumor in the pelvis. Upon further evaluation, there was noted to be a small perforation in this area with tumor invading into the small bowel causing this perforation. This area was freed up and 3-0 silk suture was placed over the perforation in the small bowel around the cancer. The remainder of the bowel was evaluated and decision made at this time not to free up any further given how hostile the abdomen was with all the prior operations and current findings. The area of perforation from tumor invasion in the terminal ileum was closed by the area of an inadvertent enterotomy in the cecum and decision was made to do a resection of the terminal ileum proximal to the area of tumor invasion and healthy terminal ileum followed by resection of the cecum for an end ileostomy and the descending colon mucous fistula. Furthermore, this decision was validated by the fact that there is a significant amount of peritoneal implants in the left lower quadrant and the sigmoid colon had multiple loops of small bowel adhesed to it with tumor implants as well making it very difficult to proceed with a loop sigmoid colostomy. An area of healthy small bowel was found just proximal to the area of tumor invasion with perforation. A small window was made in the mesentery of the small bowel and a linear 75 mm stapler was used to divide the small bowel. The attachments of the remaining distal terminal ileum and cecum were taken down including the white line of Toldt on the right side to mobilize the cecum. Once this was completed, an area of healthy ascending colon was identified and a window was made into the mesentery followed by division of the cecum from the ascending colon using two linear 75 staplers given the amount of distention of the cecum. Once this was complete, the mesentery connecting the area of resection for the ileum and cecum were divided in a stepwise fashion. The mesentery was scored followed by placing clamps in the distal aspect and tying off the mesentery with #0 silk ties. Once this was complete, the specimen of the terminal ileum and cecum were sent to pathology for review. In evaluating the remainder of mesentery, there was significant mesenteric implants of tumor noted as well. At this time, the abdomen was washed out with copious amounts of warm normal saline. Once this was completed, decision was made to proceed with an ileostomy creation. A point in the right lower quadrant was identified for end ileostomy and mucous fistula. A circumferential area of skin was excised using knife and electrocautery as necessary. This was taken down the fascia. The fascia was elevated and incised with a cruciate incision. The abdomen was entered through this incision to the fascia and two finger breaths were easily passed through this ostomy creation site. A Carolyn was used to bring out the terminal ileum making sure that the mesentery was within its appropriate direction. A second Lutcher was used to bring out an end portion of the ascending colon for a small mucous fistula as well. Once this was complete, the abdomen was reinspected and no other abnormalities were noted. A decision was made given the amount of ascites fluid the patient had prior, to place a drain. A small incision was made in the left lower quadrant followed by entry into the abdomen with a tonsil clamp. Once this was complete, a 19-Tongan Julien drain was entered into the field and placed into the pelvis. This drain was sutured to place using a 2-0 nylon suture. At this time, decision was made to begin closure of the abdomen. The patient had poor fascia with potential of tumor implants in the fascia as well, but no gross identification was noted. The fascia was then closed using a #0 looped PDS in a running fashion. Once this was complete, the wound was covered and drain was placed for suction. We then turned our attention to the creation of maturation of the end ileostomy and mucous fistula. The staple line of the ileum was excised with Metzenbaum scissors. Hemostasis was achieved with electrocautery as necessary. A Lalita end ileostomy was created using 3-0 Vicryl sutures obtaining the lip of the small bowel followed by the submucosa few centimeters distal and then attachment to the dermis. In a small inferior lateral portion of the ileostomy, the mucous fistula was brought through and a small portion over the lip of the staple line of the ascending colon was removed and a mucous fistula was created in the inferior lateral portion of the ostomy hole. The ileum and mucous fistula were attached together at one point in the anterior lateral aspect and the mucous fistula was then attached to the dermis as well. A successful end ileostomy and mucous fistula were created at this time. An ileostomy bag was then placed over this wound. At this time, we began the termination of the procedure. The needle count was correct, but the sponge count was off by one sponge. The abdomen was inspected in all areas and the lap was not noted in the abdomen. Radiology was called to the room and the x-ray was obtained. The x-ray was evaluated by myself and the radiologist and no retained lap was noted in the abdomen. The Edgard-Chan drain could be noted in the pelvis as well as NG tube in the stomach and the good visualization of the lateral aspects of the abdomen as well without any note of a retained foreign object. The patient was then left intubated and of note throughout the procedure, required some pressor support for hypotension along with fluid resuscitation. A decision was made to keep the patient intubated and admit the patient to the intensive care unit for further monitoring upon conclusion of the case. Toni Marquis M.D. DR: SUNSHINE JOB#: [id number] CC: STUART
[2016-10-13] MEDS: Piperacillin/Tazobactam 3.375 GM in NS 110 ML IVPB SCH ×4 (06:07→21:58)
[2016-10-13] MEDS: Pantoprazole Inj IVP SCH (08:07)
[2016-10-13] MEDS: Heparin 5000 units/ml inj SUBQ SCH ×2 (08:13→21:08)
[2016-10-13] MEDS: D5W w/KCl 20mEq 1,000 ML IV SCH (08:28)
[2016-10-13] MEDS ORDERED: DOPamine 400mg/250ml 250 ML IV SCH ×2 (08:30→21:00)
--- NOTE | 2016-10-13 08:34 | Diagnostic Imaging Report ---
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 A nasogastric tube is coiled in the stomach. A surgical drain in the lower pelvis. There is some retroperitoneal air along the right side of colon, presumably surgical in nature. There is a surgical anastomotic staple line in the right side of the abdomen. There is a Atkinson catheter in place. Bowel loops are distended, but less so than on the earlier CT image. No radiopaque foreign body to suggest retained surgical sponge is demonstrated. Calcification in the lower pelvis are consistent with degenerative fibroids demonstrated on recent CT. Impression: No evidence of retained foreign body Postsurgical changes, as described Small bowel distention, decreased: 10/10/2016, presumably related to interim decompressive surgery.
[2016-10-13 09:42] LABS: MAGNESIUM 1.5 mg/dL (1.7-2.5); PHOSPHORUS 4.6 mg/dL (2.5-4.8)
[2016-10-13 10:07] LABS: MEAN CORPUSCULAR HGB CONC 32.2 G/DL (32.0-36.0); MEAN CORPUSCULAR VOLUME 87 FL (80-99); MEAN PLATELET VOLUME 5.6 FL (6.5-10.1); PLATELET COUNT 313 K/UL (150-450); RED BLOOD COUNT 4.13 M/UL (4.20-5.40); RED CELL DISTRIBUTION WIDTH 18.4 % (11.6-14.8); WHITE BLOOD COUNT 3.9 K/UL (4.8-10.8)
[2016-10-13] MEDS ORDERED: Morphine Sulfate 4mg/ml Inj IVP PRN (10:15)
[2016-10-13 10:16] LABS: INR 1.1 (0.9-1.1); PROTHROMBIN TIME 11.7 SEC (9.30-11.50)
[2016-10-13] MEDS ORDERED: Levophed 4mg/4mL Inj IV ONE (10:20)
--- NOTE | 2016-10-13 10:22 | Pulmonolgy Critical Care Note ---
Critical Care - Asmt/Plan Problems: (1) Septic shock (2) Acute respiratory failure (3) SBO (small bowel obstruction) (4) Metastatic adenocarcinoma (5) Colonic obstruction (6) Sepsis (7) S/P exploratory laparotomy Respiratory: monitor respiratory rate, adjust FIO2, CXR, ABG Cardiac: continue to monitor HR/BP, other - switch to levophed becasue of tachycardia, will start weaning once off pressors. 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 Discussed with: nurses, consultants, case coordinatorretail support manager - Objective Last 24 Hour Vital Signs Date Time Temp Pulse Resp B/P Pulse Ox O2 Delivery O2 Flow Rate FiO2 10/13/16 10:00 123 16 93/63 96 Mechanical Ventilator 10/13/16 09:30 126 16 101/66 100 Mechanical Ventilator 10/13/16 09:26 126 21 80 10/13/16 09:15 123 16 95 Mechanical Ventilator 10/13/16 09:00 122 16 87/53 95 Mechanical Ventilator 10/13/16 08:30 122 15 88/69 95 Mechanical Ventilator 10/13/16 08:22 90/60 10/13/16 08:00 98.1 123 15 86/43 95 Mechanical Ventilator 10/13/16 08:00 80 10/13/16 07:30 122 14 93/61 95 Mechanical Ventilator 10/13/16 07:11 107 22 80 10/13/16 07:00 124 16 79/38 95 Mechanical Ventilator 10/13/16 06:30 110 24 87/56 94 Mechanical Ventilator 10/13/16 06:07 89/56 10/13/16 06:00 116 24 86/56 94 Mechanical Ventilator 10/13/16 05:30 110 26 84/56 94 Mechanical Ventilator 10/13/16 05:06 120 18 80 10/13/16 05:00 90/46 10/13/16 05:00 124 23 87/56 94 Mechanical Ventilator 10/13/16 04:30 110 24 90/54 94 Mechanical Ventilator 10/13/16 04:00 89/50 10/13/16 04:00 108 24 94/56 94 Mechanical Ventilator 10/13/16 04:00 80 10/13/16 03:30 108 26 80 10/13/16 03:30 105 26 93/45 94 Mechanical Ventilator 10/13/16 03:00 90/56 10/13/16 02:00 111 20 97/64 94 Mechanical Ventilator 10/13/16 02:00 89/45 10/13/16 01:30 102 20 96/54 94 Mechanical Ventilator 10/13/16 01:04 111 29 80 10/13/16 01:00 110 20 91/74 94 Mechanical Ventilator 10/13/16 01:00 94/50 10/13/16 00:30 100 20 108/76 94 Mechanical Ventilator 10/13/16 00:00 80 10/13/16 00:00 112 20 97/76 94 Mechanical Ventilator 10/13/16 00:00 90/46 10/12/16 23:30 100 20 87/66 94 Mechanical Ventilator 10/12/16 23:00 85/50 10/12/16 23:00 115 20 102/73 94 Mechanical Ventilator 10/12/16 22:59 103 26 80 10/12/16 22:30 108 20 90/45 94 Mechanical Ventilator 10/12/16 22:00 80/40 10/12/16 22:00 96 20 89/68 94 Mechanical Ventilator 100 10/12/16 21:30 92 20 86/68 94 Mechanical Ventilator 100 10/12/16 21:15 92 20 80/62 94 Mechanical Ventilator 100 10/12/16 21:00 92 20 86/68 94 Mechanical Ventilator 100 10/12/16 21:00 84/40 10/12/16 20:58 89 18 80 10/12/16 20:45 92 20 84/60 94 Mechanical Ventilator 100 10/12/16 20:30 92 20 86/68 94 Mechanical Ventilator 100 10/12/16 20:15 92 20 84/68 94 Mechanical Ventilator 100 10/12/16 20:00 70/40 10/12/16 20:00 92 20 94/56 94 Mechanical Ventilator 100 10/12/16 19:47 88 32 80 10/12/16 19:45 92 20 86/68 94 Mechanical Ventilator 100 10/12/16 19:30 92 20 86/68 94 Mechanical Ventilator 100 10/12/16 19:15 81 17 94/56 96 Mechanical Ventilator 100 10/12/16 19:00 80 10/12/16 19:00 80 17 94/53 96 Mechanical Ventilator 100 10/12/16 18:45 84 18 92/53 93 Mechanical Ventilator 100 10/12/16 18:30 85 18 82/52 94 Mechanical Ventilator 100 10/12/16 18:12 97.1 85 10 87/58 94 Endotracheal Tube 70 10/12/16 18:00 88 10 92/55 94 Endotracheal Tube 70 10/12/16 17:45 81 10 91/57 97 Endotracheal Tube 70 10/12/16 17:35 70 10/12/16 17:35 76 10 84/50 98 Endotracheal Tube 70 10/12/16 17:18 76 10 82/48 95 Endotracheal Tube 50 10/12/16 17:14 86 10 100 10/12/16 17:13 86 10 81/51 95 Endotracheal Tube 50 10/12/16 17:10 50 10/12/16 17:08 88 10 88/52 95 Endotracheal Tube 50 10/12/16 17:03 96.8 76 10 86/55 95 Endotracheal Tube 50 10/12/16 17:03 50 10/12/16 11:35 97.2 76 15 115/77 98 Status: awake Condition: critical Neck: full ROM Lungs: chest wall tender Heart: HR/BP stable, HR/BP unstable, regular Extremities: no C/C/E, edema Decubiti: location Critical Care - Subjective ROS Limited/Unobtainable: No ICU Day: 2 Intubation Day: 2 Condition: critical EKG Rhythm: Sinus Rhythm FI02: 80 Vent Support Breath Rate: 14 Vent Support Mode: AC Vent Tidal Volume: 450 Sputum Amount: Scant PEEP: 5.0 PIP: 21 Fluids: d5w 75 I&O: Intake and Output 10/12/16 10/13/16 19:00 07:00 Intake Total 6500 ml 1031.0 ml Output Total 690 ml 1285 ml Balance 5810 ml -254.0 ml IV Total 6500 ml 1031.0 ml Output Urine Total 220 ml 555 ml Gastric Drainage Total 100 ml Drainage Total 270 ml 630 ml Estimated Blood Loss 200 ml # Voids 1 CXR: ET tube in place ET-Tube: 6.5 ET Position: 22 Labs: Laboratory Tests Test 10/12/16 17:13 10/13/16 07:20 10/13/16 09:50 Arterial Blood pH 7.430 (7.350-7.450) Arterial Blood Partial Pressure CO2 36.0 mmHg (35.0-45.0) Arterial Blood Partial Pressure O2 62.0 mmHg (75.0-100.0) L Arterial Blood HCO3 23.0 mmol/L (22.0-26.0) Arterial Blood Oxygen Saturation 89.0 % (92.0-98.0) L Arterial Blood Base Excess -1.1 Isidro Test Phosphorus Level 4.6 mg/dL (2.5-4.8) Magnesium Level 1.5 mg/dL (1.7-2.5) L White Blood Count 3.9 K/UL (4.8-10.8) L Red Blood Count 4.13 M/UL (4.20-5.40) L Hemoglobin 11.5 G/DL (12.0-16.0) L Hematocrit 35.9 % (37.0-47.0) L Mean Corpuscular Volume 87 FL (80-99) Mean Corpuscular Hemoglobin 28.0 PG (27.0-31.0) Mean Corpuscular Hemoglobin Concent 32.2 G/DL (32.0-36.0) Red Cell Distribution Width 18.4 % (11.6-14.8) H Platelet Count 313 K/UL (150-450) Mean Platelet Volume 5.6 FL (6.5-10.1) L Neutrophils (%) (Auto) % (45.0-75.0) Lymphocytes (%) (Auto) % (20.0-45.0) Monocytes (%) (Auto) % (1.0-10.0) Eosinophils (%) (Auto) % (0.0-3.0) Basophils (%) (Auto) % (0.0-2.0) Neutrophils % (Manual) Pending Lymphocytes % (Manual) Pending Platelet Estimate Pending Platelet Morphology Pending Prothrombin Time Pending Prothromb Time International Ratio Pending Activated Partial Thromboplast Time Pending Sodium Level Pending Potassium Level Pending Chloride Level Pending Carbon Dioxide Level Pending Blood Urea Nitrogen Pending Creatinine Pending Estimat Glomerular Filtration Rate Pending Glucose Level Pending Calcium Level Pending Total Bilirubin Pending Aspartate Amino Transf (AST/SGOT) Pending Alanine Aminotransferase (ALT/SGPT) Pending Alkaline Phosphatase Pending Total Protein Pending Albumin Pending Globulin Pending APPLE COLON Oct 13, 2016 10:22
[2016-10-13 10:26] LABS: ALBUMIN/GLOBULIN RATIO 0.8 (1.0-2.7); CALCIUM 7.5 mg/dL (8.6-10.2); CREATININE 1.3 mg/dL (0.5-0.9); GLOMERULAR FILTRATION RATE 51.5 mL/min (>60); POTASSIUM 5.2 mEQ/L (3.4-4.9); TOTAL PROTEIN 4.4 g/dL (6.6-8.7)
[2016-10-13] MEDS ORDERED: LORazepam Inj 2mg/ml 1ml IV PRN (10:30)
[2016-10-13] MEDS: D5 1/2NS 1,000 ML IV SCH ×2 (10:34→18:30)
--- NOTE | 2016-10-13 10:48 | General Progress Note ---
Progress Note Progress Note Surgery: Patient seen and examined at bedside. Intubated and comfortable. On pressors. Abdomen soft, distended. Ostomy pink and viable. KATE drain with serosang output. Midline wound clean with dressings. Doing okay so far given severity of disease and recent surgery. labs okay Plan: NPO, IV fluids, IV Abx Ostomy care and management KATE drain care and management Extubate when possible NG tube to LIS for now Will continue to monitor abdominal exam Given extensive disease noted during surgery her prognosis is very guarded. Appreciate ICU care and management. Toni Marquis Oct 13, 2016 10:48
[2016-10-13 10:54] LABS: BAND NEUTROPHILS % (MANUAL) 12 % (0-8); BASOPHILS % (MANUAL) 0 % (0-2); EOSINOPHILS % (MANUAL) 0 % (0-3); LYMPHOCYTES % (MANUAL) 10 % (20-45); NEUTROPHILS % (MANUAL) 75 % (45-75); PLATELET ESTIMATE ADEQUATE; PLATELET MORPHOLOGY NORMAL; TOTAL CELLS COUNTED 100
[2016-10-13 10:55] LABS: ANISOCYTOSIS 2+; HYPOCHROMASIA 1+
[2016-10-13 11:10] LABS: ABG ALLEN TEST POSITIVE
--- NOTE | 2016-10-13 11:50 | GI Progress Note ---
Assessment/Plan Problems: (1) Dilated bowel ICD Codes: K59.3 - Megacolon, not elsewhere classified SNOMED: 11372545 (2) Abdominal pain ICD Codes: R10.9 - Abdominal pain SNOMED: 67368446 (3) Anemia ICD Codes: D64.9 - Anemia SNOMED: 532861773 (4) SBO (small bowel obstruction) ICD Codes: K56.69 - SBO (small bowel obstruction) SNOMED: 769443395 (5) Metastatic adenocarcinoma ICD Codes: C79.9 - Secondary malignant neoplasm of unspecified site SNOMED: 5660023, 407255409 Status: unchanged Status Narrative Discussed with Dr. Valdez. Assessment/Plan s/p ex lap, fu surgical recs lipase unremarkable per surgery >> large hard non-mobile completely obstructing extrinsic tumor maintain NPO + IVFs ppi fu labs Subjective Subjective limited Objective Last 24 Hour Vital Signs Date Time Temp Pulse Resp B/P Pulse Ox O2 Delivery O2 Flow Rate FiO2 10/13/16 10:59 113 24 80 10/13/16 10:34 85/59 10/13/16 10:00 123 16 93/63 96 Mechanical Ventilator 10/13/16 09:30 126 16 101/66 100 Mechanical Ventilator 10/13/16 09:26 126 21 80 10/13/16 09:15 123 16 95 Mechanical Ventilator 10/13/16 09:00 122 16 87/53 95 Mechanical Ventilator 10/13/16 08:30 122 15 88/69 95 Mechanical Ventilator 10/13/16 08:22 90/60 10/13/16 08:00 98.1 123 15 86/43 95 Mechanical Ventilator 10/13/16 08:00 80 10/13/16 07:30 122 14 93/61 95 Mechanical Ventilator 10/13/16 07:11 107 22 80 10/13/16 07:00 124 16 79/38 95 Mechanical Ventilator 10/13/16 06:30 110 24 87/56 94 Mechanical Ventilator 10/13/16 06:07 89/56 10/13/16 06:00 116 24 86/56 94 Mechanical Ventilator 10/13/16 05:30 110 26 84/56 94 Mechanical Ventilator 10/13/16 05:06 120 18 80 10/13/16 05:00 90/46 10/13/16 05:00 124 23 87/56 94 Mechanical Ventilator 10/13/16 04:30 110 24 90/54 94 Mechanical Ventilator 10/13/16 04:00 89/50 10/13/16 04:00 108 24 94/56 94 Mechanical Ventilator 10/13/16 04:00 80 10/13/16 03:30 108 26 80 10/13/16 03:30 105 26 93/45 94 Mechanical Ventilator 10/13/16 03:00 90/56 10/13/16 02:00 111 20 97/64 94 Mechanical Ventilator 10/13/16 02:00 89/45 10/13/16 01:30 102 20 96/54 94 Mechanical Ventilator 10/13/16 01:04 111 29 80 10/13/16 01:00 110 20 91/74 94 Mechanical Ventilator 10/13/16 01:00 94/50 10/13/16 00:30 100 20 108/76 94 Mechanical Ventilator 10/13/16 00:00 80 10/13/16 00:00 112 20 97/76 94 Mechanical Ventilator 10/13/16 00:00 90/46 10/12/16 23:30 100 20 87/66 94 Mechanical Ventilator 10/12/16 23:00 85/50 10/12/16 23:00 115 20 102/73 94 Mechanical Ventilator 10/12/16 22:59 103 26 80 10/12/16 22:30 108 20 90/45 94 Mechanical Ventilator 10/12/16 22:00 80/40 10/12/16 22:00 96 20 89/68 94 Mechanical Ventilator 100 10/12/16 21:30 92 20 86/68 94 Mechanical Ventilator 100 10/12/16 21:15 92 20 80/62 94 Mechanical Ventilator 100 10/12/16 21:00 92 20 86/68 94 Mechanical Ventilator 100 10/12/16 21:00 84/40 10/12/16 20:58 89 18 80 10/12/16 20:45 92 20 84/60 94 Mechanical Ventilator 100 10/12/16 20:30 92 20 86/68 94 Mechanical Ventilator 100 10/12/16 20:15 92 20 84/68 94 Mechanical Ventilator 100 10/12/16 20:00 70/40 10/12/16 20:00 92 20 94/56 94 Mechanical Ventilator 100 10/12/16 19:47 88 32 80 10/12/16 19:45 92 20 86/68 94 Mechanical Ventilator 100 10/12/16 19:30 92 20 86/68 94 Mechanical Ventilator 100 10/12/16 19:15 81 17 94/56 96 Mechanical Ventilator 100 10/12/16 19:00 80 10/12/16 19:00 80 17 94/53 96 Mechanical Ventilator 100 10/12/16 18:45 84 18 92/53 93 Mechanical Ventilator 100 10/12/16 18:30 85 18 82/52 94 Mechanical Ventilator 100 10/12/16 18:12 97.1 85 10 87/58 94 Endotracheal Tube 70 10/12/16 18:00 88 10 92/55 94 Endotracheal Tube 70 10/12/16 17:45 81 10 91/57 97 Endotracheal Tube 70 10/12/16 17:35 70 10/12/16 17:35 76 10 84/50 98 Endotracheal Tube 70 10/12/16 17:18 76 10 82/48 95 Endotracheal Tube 50 10/12/16 17:14 86 10 100 10/12/16 17:13 86 10 81/51 95 Endotracheal Tube 50 10/12/16 17:10 50 10/12/16 17:08 88 10 88/52 95 Endotracheal Tube 50 10/12/16 17:03 96.8 76 10 86/55 95 Endotracheal Tube 50 10/12/16 17:03 50 Intake and Output 10/12/16 10/13/16 19:00 07:00 Intake Total 6500 ml 1031.0 ml Output Total 690 ml 1285 ml Balance 5810 ml -254.0 ml IV Total 6500 ml 1031.0 ml Output Urine Total 220 ml 555 ml Gastric Drainage Total 100 ml Drainage Total 270 ml 630 ml Estimated Blood Loss 200 ml # Voids 1 Laboratory Tests Test 10/12/16 17:13 10/13/16 07:20 10/13/16 09:50 10/13/16 11:05 Arterial Blood pH 7.430 (7.350-7.450) 7.489 (7.350-7.450) Arterial Blood Partial Pressure CO2 36.0 mmHg (35.0-45.0) 24.0 mmHg (35.0-45.0) *L Arterial Blood Partial Pressure O2 62.0 mmHg (75.0-100.0) L 263.0 mmHg (75.0-100.0) H Arterial Blood HCO3 23.0 mmol/L (22.0-26.0) 17.8 mmol/L (22.0-26.0) L Arterial Blood Oxygen Saturation 89.0 % (92.0-98.0) L 99.0 % (92.0-98.0) H Arterial Blood Base Excess -1.1 -4.0 Isidro Test Positive Phosphorus Level 4.6 mg/dL (2.5-4.8) Magnesium Level 1.5 mg/dL (1.7-2.5) L White Blood Count 3.9 K/UL (4.8-10.8) L Red Blood Count 4.13 M/UL (4.20-5.40) L Hemoglobin 11.5 G/DL (12.0-16.0) L Hematocrit 35.9 % (37.0-47.0) L Mean Corpuscular Volume 87 FL (80-99) Mean Corpuscular Hemoglobin 28.0 PG (27.0-31.0) Mean Corpuscular Hemoglobin Concent 32.2 G/DL (32.0-36.0) Red Cell Distribution Width 18.4 % (11.6-14.8) H Platelet Count 313 K/UL (150-450) Mean Platelet Volume 5.6 FL (6.5-10.1) L Neutrophils (%) (Auto) % (45.0-75.0) Lymphocytes (%) (Auto) % (20.0-45.0) Monocytes (%) (Auto) % (1.0-10.0) Eosinophils (%) (Auto) % (0.0-3.0) Basophils (%) (Auto) % (0.0-2.0) Differential Total Cells Counted 100 Neutrophils % (Manual) 75 % (45-75) Lymphocytes % (Manual) 10 % (20-45) L Monocytes % (Manual) 3 % (1-10) Eosinophils % (Manual) 0 % (0-3) Basophils % (Manual) 0 % (0-2) Band Neutrophils 12 % (0-8) H Platelet Estimate Adequate Platelet Morphology Normal Hypochromasia 1+ Anisocytosis 2+ Prothrombin Time 11.7 SEC (9.30-11.50) H Prothromb Time International Ratio 1.1 (0.9-1.1) Activated Partial Thromboplast Time 30 SEC (23-33) Sodium Level 138 mEQ/L (135-145) Potassium Level 5.2 mEQ/L (3.4-4.9) H Chloride Level 104 mEQ/L (98-107) Carbon Dioxide Level 20 mEQ/L (20-30) Anion Gap 14 (5-15) Blood Urea Nitrogen 25 mg/dL (7-23) H Creatinine 1.3 mg/dL (0.5-0.9) #H Estimat Glomerular Filtration Rate 51.5 mL/min (>60) Glucose Level 165 mg/dL (74-106) H Calcium Level 7.5 mg/dL (8.6-10.2) L Total Bilirubin 0.6 mg/dL (0.0-1.2) Aspartate Amino Transf (AST/SGOT) 18 U/L (5-40) Alanine Aminotransferase (ALT/SGPT) 9 U/L (3-33) Alkaline Phosphatase 27 U/L (35-104) L Total Protein 4.4 g/dL (6.6-8.7) #L Albumin 2.0 g/dL (3.5-5.2) L Globulin 2.4 g/dL Albumin/Globulin Ratio 0.8 (1.0-2.7) L Height (Feet): 5 Height (Inches): 1.00 Weight (Pounds): 100 General Appearance: lethargic, other - sleeping Cardiovascular: normal rate Respiratory/Chest: other - mech vent Abdominal Exam: incision site Objective POSTOPERATIVE DIAGNOSES: 1. Complete bowel obstruction caused by large cervical cancer. 2. A small perforation of the distal terminal ileum. OPERATION PERFORMED: 1. Exploratory laparotomy. 2. Small bowel resection. 3. Creation of end ileostomy. 4. Creation of mucous fistula. 5. Lysis of adhesions. Kym Javier N.P. Oct 13, 2016 11:50
--- NOTE | 2016-10-13 12:10 | 48 Hour Post Anesthesia Eval ---
Post Anesthesia Evaluation Procedure: Exploratory laparotomy, partial bowel resection, ileostomy Date of Evaluation: Oct 13, 2016 Time of Evaluation: 07:30 Blood Pressure Systolic: 93 0: 61 Pulse Rate: 122 Respiratory Rate: 14 O2 Sat by Pulse Oximetry: 9 Airway: other - intubated on mechanical ventilation Nausea: No Vomiting: No Pain Intensity: 0 Hydration Status: adequate Cardiopulmonary Status: patient critically ill. Hypotensive on presors, tachycardic, on mechanical support Mental Status/LOC: other - no response Post-Anesthesia Complications: 0 Follow-up care needed: N/A - further care as per ICU team ANASTASIYA CERVANTES M.D. Oct 13, 2016 12:10
--- NOTE | 2016-10-13 15:52 | Cardiology Report ---
APPROVED REPORT EKG Measurement Heart [id number] Normal sinus rhythm Nonspecific ST and T wave abnormality Prolonged QT Abnormal ECG
--- NOTE | 2016-10-13 15:59 | Diagnostic Imaging Report ---
Indication: Line placement Comparison: 10/11/16 A single view chest radiograph was obtained. Findings: Right jugular line is present. The tip is projected over the right atrium. Endotracheal tube is right at the level the lit. This should be pulled back slightly. Nasogastric tube is present. There is a new density at the left lung base which is likely due to atelectasis given volume loss. Lung volumes are low bilaterally. Platelike atelectasis also noted at the right lung base. Impression: Low-lying endotracheal tube. This should be retracted 2 cm. This was discussed with the nurse in ICU. Left basal atelectasis. Right jugular central line in good position
--- NOTE | 2016-10-13 16:36 | Diagnostic Imaging Report ---
Indication: Repositioning of the endotracheal tube Comparison: 10/12/16 A single view chest radiograph was obtained. Findings: Endotracheal tube is 3 cm above the lit in good position. Most of the left basilar atelectasis has resolved in the interval. Some residual basilar atelectasis noted bilaterally. No change otherwise. Impression: Endotracheal tube in good position. Improved left basilar atelectasis, currently mild
[2016-10-13] MEDS ORDERED: Tubing IV Secondary IV ONE (17:44)
[2016-10-13] MEDS ORDERED: NS 275ml ONE (17:44)
[2016-10-14] VITALS (76 sets, daily range): BP systolic 76–126; BP diastolic 38–75
[2016-10-14] MEDS: D5 1/2NS 1,000 ML IV SCH ×3 (04:40→18:00)
[2016-10-14] MEDS: Piperacillin/Tazobactam 3.375 GM in NS 110 ML IVPB SCH ×3 (05:59→21:37)
[2016-10-14 06:23] LABS: MEAN CORPUSCULAR HEMOGLOBIN 28.8 PG (27.0-31.0); MEAN CORPUSCULAR HGB CONC 33.4 G/DL (32.0-36.0); MEAN CORPUSCULAR VOLUME 86 FL (80-99); MEAN PLATELET VOLUME 6.7 FL (6.5-10.1); PLATELET COUNT 188 K/UL (150-450); RED CELL DISTRIBUTION WIDTH 18.5 % (11.6-14.8); WHITE BLOOD COUNT 9.6 K/UL (4.8-10.8)
[2016-10-14 06:52] LABS: ALBUMIN/GLOBULIN RATIO 0.6 (1.0-2.7); CALCIUM 7.7 mg/dL (8.6-10.2); CREATININE 1.5 mg/dL (0.5-0.9); GLOMERULAR FILTRATION RATE 43.8 mL/min (>60); TOTAL PROTEIN 4.5 g/dL (6.6-8.7)
[2016-10-14 07:31] LABS: ABG BASE EXCESS -2.5
[2016-10-14] MEDS: Pantoprazole Inj IVP SCH ×2 (08:40→18:02)
[2016-10-14] MEDS: Heparin 5000 units/ml inj SUBQ SCH ×2 (08:41→21:38)
[2016-10-14] MEDS ORDERED: Pantoprazole Inj IV SCH (09:00)
[2016-10-14 09:29] LABS: BAND NEUTROPHILS % (MANUAL) 19 % (0-8); BASOPHILS % (MANUAL) 0 % (0-2); EOSINOPHILS % (MANUAL) 0 % (0-3); LYMPHOCYTES % (MANUAL) 4 % (20-45); NEUTROPHILS % (MANUAL) 72 % (45-75); PLATELET ESTIMATE ADEQUATE; TOTAL CELLS COUNTED 100
[2016-10-14 09:30] LABS: ANISOCYTOSIS 1+; HYPOCHROMASIA 1+; PLATELET MORPHOLOGY NORMAL
[2016-10-14] MEDS: Morphine Sulfate 2mg/ml Inj IVP PRN ×2 (10:03→18:30)
--- NOTE | 2016-10-14 10:53 | Pulmonolgy Critical Care Note ---
Critical Care - Asmt/Plan Problems: (1) Septic shock (2) Acute respiratory failure (3) SBO (small bowel obstruction) (4) Metastatic adenocarcinoma (5) Colonic obstruction (6) Sepsis (7) S/P exploratory laparotomy Respiratory: monitor respiratory rate, adjust FIO2, CXR Cardiac: continue pressors, continue to monitor HR/BP Renal: F/U I&O, keep IV fluid, check electrolytes Infectious Disease: check cultures, continue antibiotics Gastrointestinal: continue feedings/current rate Endocrine: monitor blood sugar, check TSH, continue sliding scale insulin Hematologic: monitor H/H, transfuse if hgb<8.5 Neurologic: PRN Ativan, PRN Morphine, keep patient comfortable Affect: PRN ativan Prophylaxis: Protonix, Heparin Notes Reviewed: front sight attacher, cardio, renal Discussed with: nurses, housing case managermanager garage - Objective Last 24 Hour Vital Signs Date Time Temp Pulse Resp B/P Pulse Ox O2 Delivery O2 Flow Rate FiO2 10/14/16 08:57 94 20 45 10/14/16 08:00 60 10/14/16 07:15 96 19 60 10/14/16 05:45 88 16 100/57 98 Mechanical Ventilator 60 10/14/16 05:30 89 16 100/49 98 Mechanical Ventilator 60 10/14/16 05:16 105 24 60 10/14/16 05:15 89 17 101/53 98 Mechanical Ventilator 60 10/14/16 05:00 92 17 113/54 98 Mechanical Ventilator 60 10/14/16 04:45 93 17 102/67 98 Mechanical Ventilator 80 10/14/16 04:30 90 17 99/58 98 Mechanical Ventilator 80 10/14/16 04:15 89 16 95/54 98 Mechanical Ventilator 80 10/14/16 04:00 60 10/14/16 04:00 98.0 90 17 94/57 98 Mechanical Ventilator 80 10/14/16 03:45 89 17 99/60 98 Mechanical Ventilator 80 10/14/16 03:30 89 16 109/60 89 Mechanical Ventilator 80 10/14/16 03:15 88 16 93/57 98 Mechanical Ventilator 80 10/14/16 03:11 91 18 80 10/14/16 03:00 88 16 94/60 98 Mechanical Ventilator 80 10/14/16 02:45 89 16 101/58 98 Mechanical Ventilator 80 10/14/16 02:30 89 16 101/58 98 Mechanical Ventilator 80 10/14/16 02:15 89 16 100/57 98 Mechanical Ventilator 80 10/14/16 02:00 89 16 97/57 98 Mechanical Ventilator 80 10/14/16 01:17 89 21 80 10/14/16 00:23 81/46 10/14/16 00:15 93 18 98 Mechanical Ventilator 10/14/16 00:00 98.0 90 18 76/62 98 Mechanical Ventilator 80.0 10/14/16 00:00 60 10/13/16 23:45 89 18 93/59 98 Mechanical Ventilator 80.0 10/13/16 23:30 92 18 87/55 98 Mechanical Ventilator 80.0 10/13/16 23:30 92 18 96/61 98 Mechanical Ventilator 80.0 10/13/16 23:15 92 18 87/55 96 Mechanical Ventilator 80.0 10/13/16 23:13 92 20 80 10/13/16 23:00 97 20 89/61 98 Mechanical Ventilator 80.0 10/13/16 22:30 98.4 97 20 86/63 98 Mechanical Ventilator 80.0 10/13/16 22:15 102 20 88/70 98 Mechanical Ventilator 80.0 10/13/16 22:00 95 20 112/76 95 Mechanical Ventilator 80.0 10/13/16 21:45 102 20 97/67 95 Mechanical Ventilator 80.0 10/13/16 21:30 103 20 97/72 95 Mechanical Ventilator 80.0 10/13/16 21:15 105 20 98/67 95 Mechanical Ventilator 80.0 10/13/16 21:00 106 19 112/76 95 Mechanical Ventilator 80.0 10/13/16 20:52 102 21 80 10/13/16 20:45 106 19 103/72 100 Mechanical Ventilator 80.0 10/13/16 20:30 108 20 111/84 100 Mechanical Ventilator 80.0 10/13/16 20:15 108 19 98/72 100 Mechanical Ventilator 80.0 10/13/16 20:00 97.6 112 19 100/73 100 Mechanical Ventilator 80.0 10/13/16 19:45 112 18 98/72 100 Mechanical Ventilator 80.0 10/13/16 19:30 114 18 109/81 100 Mechanical Ventilator 80.0 10/13/16 19:15 113 17 87/64 100 Mechanical Ventilator 80.0 10/13/16 19:07 119 25 80 10/13/16 19:00 114 17 110/82 100 Mechanical Ventilator 80.0 10/13/16 18:30 113 18 94/65 100 Mechanical Ventilator 80.0 10/13/16 18:15 113 18 116/76 100 Mechanical Ventilator 80.0 10/13/16 18:02 88/60 10/13/16 18:00 113 17 115/76 100 Mechanical Ventilator 80.0 10/13/16 17:00 80 10/13/16 17:00 97.4 112 17 112/70 100 Mechanical Ventilator 80.0 10/13/16 16:45 118 18 104/71 100 Mechanical Ventilator 80 10/13/16 16:39 120 29 80 10/13/16 16:30 118 18 121/87 100 Mechanical Ventilator 80 10/13/16 16:15 111 19 109/74 93 Mechanical Ventilator 80 10/13/16 16:00 80 10/13/16 16:00 97.9 105 18 105/72 95 Mechanical Ventilator 80 10/13/16 15:15 107 19 95/69 95 Mechanical Ventilator 80 10/13/16 15:15 106 16 101/67 95 10/13/16 15:10 105 23 80 10/13/16 15:00 101/75 10/13/16 15:00 103 16 101/75 95 10/13/16 14:30 103 19 102/60 95 Mechanical Ventilator 80 10/13/16 14:00 103 19 101/68 95 Mechanical Ventilator 80 10/13/16 14:00 101/68 10/13/16 13:30 104 19 93/73 95 Mechanical Ventilator 80 10/13/16 13:19 112 23 80 10/13/16 13:00 104/67 10/13/16 13:00 118 20 104/76 95 Mechanical Ventilator 80 10/13/16 12:30 106 18 113/65 95 Mechanical Ventilator 80 10/13/16 12:10 122 14 9 10/13/16 12:00 80 10/13/16 12:00 98.1 106 18 107/66 95 Mechanical Ventilator 80 10/13/16 12:00 101/63 10/13/16 11:30 113 14 112/83 94 10/13/16 11:00 111 14 122/61 95 10/13/16 11:00 106/58 10/13/16 10:59 113 24 80 Status: awake Condition: critical HEENT: atraumatic, normocephalic Lungs: clear Heart: HR/BP stable, regular Abdomen: soft, non-tender, active bowel sounds Extremities: no C/C/E Critical Care - Subjective ROS Limited/Unobtainable: Yes ICU Day: 3 Intubation Day: 3 Condition: critical FI02: 45 Vent Support Breath Rate: 14 Vent Support Mode: AC Vent Tidal Volume: 450 Sputum Amount: Moderate PEEP: 5.0 PIP: 20 Fluids: d5 1/2 NS 125 cc.hour Drips: Levophed 8 ugm I&O: Intake and Output 10/13/16 10/14/16 19:00 07:00 Intake Total 1629.53 ml 1950.0 ml Output Total 640 ml 980 ml Balance 989.53 ml 970.0 ml IV Total 1629.53 ml 1950.0 ml Output Urine Total 495 ml 420 ml Gastric Drainage Total 20 ml 20 ml Drainage Total 120 ml 220 ml Other 5 ml 320 ml CXR: ET in good position ET-Tube: 6.5 ET Position: 20 Labs: Laboratory Tests Test 10/13/16 11:05 10/14/16 04:30 10/14/16 07:17 Arterial Blood pH 7.489 (7.350-7.450) 7.440 (7.350-7.450) Arterial Blood Partial Pressure CO2 24.0 mmHg (35.0-45.0) *L 32.0 mmHg (35.0-45.0) L Arterial Blood Partial Pressure O2 263.0 mmHg (75.0-100.0) H 173.0 mmHg (75.0-100.0) H Arterial Blood HCO3 17.8 mmol/L (22.0-26.0) L 21.2 mmol/L (22.0-26.0) L Arterial Blood Oxygen Saturation 99.0 % (92.0-98.0) H 98.0 % (92.0-98.0) Arterial Blood Base Excess -4.0 -2.5 Isidro Test Positive White Blood Count 9.6 K/UL (4.8-10.8) # Red Blood Count 3.00 M/UL (4.20-5.40) L Hemoglobin 8.6 G/DL (12.0-16.0) L Hematocrit 25.8 % (37.0-47.0) L Mean Corpuscular Volume 86 FL (80-99) Mean Corpuscular Hemoglobin 28.8 PG (27.0-31.0) Mean Corpuscular Hemoglobin Concent 33.4 G/DL (32.0-36.0) Red Cell Distribution Width 18.5 % (11.6-14.8) H Platelet Count 188 K/UL (150-450) Mean Platelet Volume 6.7 FL (6.5-10.1) Neutrophils (%) (Auto) % (45.0-75.0) Lymphocytes (%) (Auto) % (20.0-45.0) Monocytes (%) (Auto) % (1.0-10.0) Eosinophils (%) (Auto) % (0.0-3.0) Basophils (%) (Auto) % (0.0-2.0) Differential Total Cells Counted 100 Neutrophils % (Manual) 72 % (45-75) Lymphocytes % (Manual) 4 % (20-45) L Monocytes % (Manual) 5 % (1-10) Eosinophils % (Manual) 0 % (0-3) Basophils % (Manual) 0 % (0-2) Band Neutrophils 19 % (0-8) H Platelet Estimate Adequate Platelet Morphology Normal Hypochromasia 1+ Anisocytosis 1+ Sodium Level 137 mEQ/L (135-145) Potassium Level 4.0 mEQ/L (3.4-4.9) Chloride Level 102 mEQ/L (98-107) Carbon Dioxide Level 21 mEQ/L (20-30) Anion Gap 14 (5-15) Blood Urea Nitrogen 32 mg/dL (7-23) H Creatinine 1.5 mg/dL (0.5-0.9) H Estimat Glomerular Filtration Rate 43.8 mL/min (>60) Glucose Level 118 mg/dL (74-106) H Calcium Level 7.7 mg/dL (8.6-10.2) L Phosphorus Level 5.0 mg/dL (2.5-4.8) H Magnesium Level 2.0 mg/dL (1.7-2.5) Total Bilirubin 0.5 mg/dL (0.0-1.2) Aspartate Amino Transf (AST/SGOT) 22 U/L (5-40) Alanine Aminotransferase (ALT/SGPT) 8 U/L (3-33) Alkaline Phosphatase 41 U/L (35-104) Total Protein 4.5 g/dL (6.6-8.7) L Albumin 1.7 g/dL (3.5-5.2) L Globulin 2.8 g/dL Albumin/Globulin Ratio 0.6 (1.0-2.7) L APPLE COLON Oct 14, 2016 10:52
--- NOTE | 2016-10-14 11:16 | Diagnostic Imaging Report ---
Indication: DYSPNEA Technique: One view of the chest Comparison: 10/13/2016 Findings: Stable satisfactory positions of endotracheal tube and right jugular central venous catheter. Interim retraction of nasogastric tube, tip which now projects at the level of the mid esophagus. There is persistent retrocardiac consolidation and likely left-sided pleural fluid. There is some hazy opacity and atelectasis at the right lung base, stable. Impression: Malposition of nasogastric tube. ICU nurse notified of this critical value at the time of interpretation Other stable findings as described, including retrocardiac consolidation, left-sided pleural fluid, and right basilar atelectasis and consolidation
--- NOTE | 2016-10-14 11:38 | General Surgery Progress Note ---
General Surgery-Progress Note Subjective Symptoms: improved Objective Last 24 Hour Vital Signs Date Time Temp Pulse Resp B/P Pulse Ox O2 Delivery O2 Flow Rate FiO2 10/14/16 10:32 94 20 45 10/14/16 10:00 92 17 104/51 95 Mechanical Ventilator 45 10/14/16 09:45 90 17 102/56 95 Mechanical Ventilator 45 10/14/16 09:30 89 17 114/58 95 Mechanical Ventilator 45 10/14/16 09:15 88 17 114/55 97 Mechanical Ventilator 45 10/14/16 09:00 92 17 103/55 97 Mechanical Ventilator 45 10/14/16 08:57 94 20 45 10/14/16 08:45 90 17 115/56 95 Mechanical Ventilator 60 10/14/16 08:30 88 16 84/45 95 Mechanical Ventilator 60 10/14/16 08:15 87 16 113/54 96 Mechanical Ventilator 60 10/14/16 08:00 60 10/14/16 08:00 97.4 96 17 108/75 96 Mechanical Ventilator 60 10/14/16 07:45 88 16 108/53 96 Mechanical Ventilator 60 10/14/16 07:30 87 16 111/57 96 Mechanical Ventilator 60 10/14/16 07:15 96 19 60 10/14/16 07:15 95 17 77/38 96 Mechanical Ventilator 60 10/14/16 05:45 88 16 100/57 98 Mechanical Ventilator 60 10/14/16 05:30 89 16 100/49 98 Mechanical Ventilator 60 10/14/16 05:16 105 24 60 10/14/16 05:15 89 17 101/53 98 Mechanical Ventilator 60 10/14/16 05:00 92 17 113/54 98 Mechanical Ventilator 60 10/14/16 04:45 93 17 102/67 98 Mechanical Ventilator 80 10/14/16 04:30 90 17 99/58 98 Mechanical Ventilator 80 10/14/16 04:15 89 16 95/54 98 Mechanical Ventilator 80 10/14/16 04:00 60 10/14/16 04:00 98.0 90 17 94/57 98 Mechanical Ventilator 80 10/14/16 03:45 89 17 99/60 98 Mechanical Ventilator 80 10/14/16 03:30 89 16 109/60 89 Mechanical Ventilator 80 10/14/16 03:15 88 16 93/57 98 Mechanical Ventilator 80 10/14/16 03:11 91 18 80 10/14/16 03:00 88 16 94/60 98 Mechanical Ventilator 80 10/14/16 02:45 89 16 101/58 98 Mechanical Ventilator 80 10/14/16 02:30 89 16 101/58 98 Mechanical Ventilator 80 10/14/16 02:15 89 16 100/57 98 Mechanical Ventilator 80 10/14/16 02:00 89 16 97/57 98 Mechanical Ventilator 80 10/14/16 01:17 89 21 80 10/14/16 00:23 81/46 10/14/16 00:15 93 18 98 Mechanical Ventilator 10/14/16 00:00 98.0 90 18 76/62 98 Mechanical Ventilator 80.0 10/14/16 00:00 60 10/13/16 23:45 89 18 93/59 98 Mechanical Ventilator 80.0 10/13/16 23:30 92 18 87/55 98 Mechanical Ventilator 80.0 10/13/16 23:30 92 18 96/61 98 Mechanical Ventilator 80.0 10/13/16 23:15 92 18 87/55 96 Mechanical Ventilator 80.0 10/13/16 23:13 92 20 80 10/13/16 23:00 97 20 89/61 98 Mechanical Ventilator 80.0 10/13/16 22:30 98.4 97 20 86/63 98 Mechanical Ventilator 80.0 10/13/16 22:15 102 20 88/70 98 Mechanical Ventilator 80.0 10/13/16 22:00 95 20 112/76 95 Mechanical Ventilator 80.0 10/13/16 21:45 102 20 97/67 95 Mechanical Ventilator 80.0 10/13/16 21:30 103 20 97/72 95 Mechanical Ventilator 80.0 10/13/16 21:15 105 20 98/67 95 Mechanical Ventilator 80.0 10/13/16 21:00 106 19 112/76 95 Mechanical Ventilator 80.0 10/13/16 20:52 102 21 80 10/13/16 20:45 106 19 103/72 100 Mechanical Ventilator 80.0 10/13/16 20:30 108 20 111/84 100 Mechanical Ventilator 80.0 10/13/16 20:15 108 19 98/72 100 Mechanical Ventilator 80.0 10/13/16 20:00 97.6 112 19 100/73 100 Mechanical Ventilator 80.0 10/13/16 19:45 112 18 98/72 100 Mechanical Ventilator 80.0 10/13/16 19:30 114 18 109/81 100 Mechanical Ventilator 80.0 10/13/16 19:15 113 17 87/64 100 Mechanical Ventilator 80.0 10/13/16 19:07 119 25 80 10/13/16 19:00 114 17 110/82 100 Mechanical Ventilator 80.0 10/13/16 18:30 113 18 94/65 100 Mechanical Ventilator 80.0 10/13/16 18:15 113 18 116/76 100 Mechanical Ventilator 80.0 10/13/16 18:02 88/60 10/13/16 18:00 113 17 115/76 100 Mechanical Ventilator 80.0 10/13/16 17:00 80 10/13/16 17:00 97.4 112 17 112/70 100 Mechanical Ventilator 80.0 10/13/16 16:45 118 18 104/71 100 Mechanical Ventilator 80 10/13/16 16:39 120 29 80 10/13/16 16:30 118 18 121/87 100 Mechanical Ventilator 80 10/13/16 16:15 111 19 109/74 93 Mechanical Ventilator 80 10/13/16 16:00 80 10/13/16 16:00 97.9 105 18 105/72 95 Mechanical Ventilator 80 10/13/16 15:15 107 19 95/69 95 Mechanical Ventilator 80 10/13/16 15:15 106 16 101/67 95 10/13/16 15:10 105 23 80 10/13/16 15:00 101/75 10/13/16 15:00 103 16 101/75 95 10/13/16 14:30 103 19 102/60 95 Mechanical Ventilator 80 10/13/16 14:00 103 19 101/68 95 Mechanical Ventilator 80 10/13/16 14:00 101/68 10/13/16 13:30 104 19 93/73 95 Mechanical Ventilator 80 10/13/16 13:19 112 23 80 10/13/16 13:00 104/67 10/13/16 13:00 118 20 104/76 95 Mechanical Ventilator 80 10/13/16 12:30 106 18 113/65 95 Mechanical Ventilator 80 10/13/16 12:10 122 14 9 10/13/16 12:00 80 10/13/16 12:00 98.1 106 18 107/66 95 Mechanical Ventilator 80 10/13/16 12:00 101/63 I&O Intake and Output 10/13/16 10/14/16 19:00 07:00 Intake Total 1629.53 ml 1950.0 ml Output Total 640 ml 980 ml Balance 989.53 ml 970.0 ml IV Total 1629.53 ml 1950.0 ml Output Urine Total 495 ml 420 ml Gastric Drainage Total 20 ml 20 ml Drainage Total 120 ml 220 ml Other 5 ml 320 ml Dressing: dry Wound: clean Drains: sander Cardiovascular: RSR Respiratory: clear Abdomen: soft Extremities: edema Laboratory Tests Test 10/14/16 04:30 10/14/16 07:17 White Blood Count 9.6 K/UL (4.8-10.8) # Red Blood Count 3.00 M/UL (4.20-5.40) L Hemoglobin 8.6 G/DL (12.0-16.0) L Hematocrit 25.8 % (37.0-47.0) L Mean Corpuscular Volume 86 FL (80-99) Mean Corpuscular Hemoglobin 28.8 PG (27.0-31.0) Mean Corpuscular Hemoglobin Concent 33.4 G/DL (32.0-36.0) Red Cell Distribution Width 18.5 % (11.6-14.8) H Platelet Count 188 K/UL (150-450) Mean Platelet Volume 6.7 FL (6.5-10.1) Neutrophils (%) (Auto) % (45.0-75.0) Lymphocytes (%) (Auto) % (20.0-45.0) Monocytes (%) (Auto) % (1.0-10.0) Eosinophils (%) (Auto) % (0.0-3.0) Basophils (%) (Auto) % (0.0-2.0) Differential Total Cells Counted 100 Neutrophils % (Manual) 72 % (45-75) Lymphocytes % (Manual) 4 % (20-45) L Monocytes % (Manual) 5 % (1-10) Eosinophils % (Manual) 0 % (0-3) Basophils % (Manual) 0 % (0-2) Band Neutrophils 19 % (0-8) H Platelet Estimate Adequate Platelet Morphology Normal Hypochromasia 1+ Anisocytosis 1+ Sodium Level 137 mEQ/L (135-145) Potassium Level 4.0 mEQ/L (3.4-4.9) Chloride Level 102 mEQ/L (98-107) Carbon Dioxide Level 21 mEQ/L (20-30) Anion Gap 14 (5-15) Blood Urea Nitrogen 32 mg/dL (7-23) H Creatinine 1.5 mg/dL (0.5-0.9) H Estimat Glomerular Filtration Rate 43.8 mL/min (>60) Glucose Level 118 mg/dL (74-106) H Calcium Level 7.7 mg/dL (8.6-10.2) L Phosphorus Level 5.0 mg/dL (2.5-4.8) H Magnesium Level 2.0 mg/dL (1.7-2.5) Total Bilirubin 0.5 mg/dL (0.0-1.2) Aspartate Amino Transf (AST/SGOT) 22 U/L (5-40) Alanine Aminotransferase (ALT/SGPT) 8 U/L (3-33) Alkaline Phosphatase 41 U/L (35-104) Total Protein 4.5 g/dL (6.6-8.7) L Albumin 1.7 g/dL (3.5-5.2) L Globulin 2.8 g/dL Albumin/Globulin Ratio 0.6 (1.0-2.7) L Arterial Blood pH 7.440 (7.350-7.450) Arterial Blood Partial Pressure CO2 32.0 mmHg (35.0-45.0) L Arterial Blood Partial Pressure O2 173.0 mmHg (75.0-100.0) H Arterial Blood HCO3 21.2 mmol/L (22.0-26.0) L Arterial Blood Oxygen Saturation 98.0 % (92.0-98.0) Arterial Blood Base Excess -2.5 Isidro Test Additional Comments ileostomy is functioning well, NG tube was advanced 20 cm, tip was in mid esophagus prior to advancement Assessment Post-op Diagnosis locally advanced cervical carcinoma with rectal obstruction Plan Additional Comments Will continue with present measures, will need to await stool output from ileostomy prior to starting tube feedings Nirmal Fu MD Oct 14, 2016 11:38
--- NOTE | 2016-10-14 12:27 | GI Progress Note ---
Assessment/Plan Problems: (1) Dilated bowel ICD Codes: K59.3 - Megacolon, not elsewhere classified SNOMED: 09248730 (2) Abdominal pain ICD Codes: R10.9 - Abdominal pain SNOMED: 93764696 (3) Anemia ICD Codes: D64.9 - Anemia SNOMED: 327817546 (4) SBO (small bowel obstruction) ICD Codes: K56.69 - SBO (small bowel obstruction) SNOMED: 888378946 (5) Metastatic adenocarcinoma ICD Codes: C79.9 - Secondary malignant neoplasm of unspecified site SNOMED: 1977673, 602766469 Status: unchanged Status Narrative Discussed with Dr. Valdez. Assessment/Plan s/p ex lap, fu surgical recs lipase unremarkable per surgery >> large hard non-mobile completely obstructing extrinsic tumor maintain NPO + IVFs ppi fu labs Subjective Subjective limited Objective Last 24 Hour Vital Signs Date Time Temp Pulse Resp B/P Pulse Ox O2 Delivery O2 Flow Rate FiO2 10/14/16 12:18 45 10/14/16 12:16 98 10/14/16 10:32 94 20 45 10/14/16 10:00 92 17 104/51 95 Mechanical Ventilator 45 10/14/16 09:45 90 17 102/56 95 Mechanical Ventilator 45 10/14/16 09:30 89 17 114/58 95 Mechanical Ventilator 45 10/14/16 09:15 88 17 114/55 97 Mechanical Ventilator 45 10/14/16 09:00 92 17 103/55 97 Mechanical Ventilator 45 10/14/16 08:57 94 20 45 10/14/16 08:45 90 17 115/56 95 Mechanical Ventilator 60 10/14/16 08:30 88 16 84/45 95 Mechanical Ventilator 60 10/14/16 08:15 87 16 113/54 96 Mechanical Ventilator 60 10/14/16 08:00 60 10/14/16 08:00 97.4 96 17 108/75 96 Mechanical Ventilator 60 10/14/16 08:00 90 10/14/16 07:45 88 16 108/53 96 Mechanical Ventilator 60 10/14/16 07:30 87 16 111/57 96 Mechanical Ventilator 60 10/14/16 07:15 96 19 60 10/14/16 07:15 95 17 77/38 96 Mechanical Ventilator 60 10/14/16 05:45 88 16 100/57 98 Mechanical Ventilator 60 10/14/16 05:30 89 16 100/49 98 Mechanical Ventilator 60 10/14/16 05:16 105 24 60 10/14/16 05:15 89 17 101/53 98 Mechanical Ventilator 60 10/14/16 05:00 92 17 113/54 98 Mechanical Ventilator 60 10/14/16 04:45 93 17 102/67 98 Mechanical Ventilator 80 10/14/16 04:30 90 17 99/58 98 Mechanical Ventilator 80 10/14/16 04:15 89 16 95/54 98 Mechanical Ventilator 80 10/14/16 04:00 60 10/14/16 04:00 98.0 90 17 94/57 98 Mechanical Ventilator 80 10/14/16 03:45 89 17 99/60 98 Mechanical Ventilator 80 10/14/16 03:30 89 16 109/60 89 Mechanical Ventilator 80 10/14/16 03:15 88 16 93/57 98 Mechanical Ventilator 80 10/14/16 03:11 91 18 80 10/14/16 03:00 88 16 94/60 98 Mechanical Ventilator 80 10/14/16 02:45 89 16 101/58 98 Mechanical Ventilator 80 10/14/16 02:30 89 16 101/58 98 Mechanical Ventilator 80 10/14/16 02:15 89 16 100/57 98 Mechanical Ventilator 80 10/14/16 02:00 89 16 97/57 98 Mechanical Ventilator 80 10/14/16 01:17 89 21 80 10/14/16 00:23 81/46 10/14/16 00:15 93 18 98 Mechanical Ventilator 10/14/16 00:00 98.0 90 18 76/62 98 Mechanical Ventilator 80.0 10/14/16 00:00 60 10/13/16 23:45 89 18 93/59 98 Mechanical Ventilator 80.0 10/13/16 23:30 92 18 87/55 98 Mechanical Ventilator 80.0 10/13/16 23:30 92 18 96/61 98 Mechanical Ventilator 80.0 10/13/16 23:15 92 18 87/55 96 Mechanical Ventilator 80.0 10/13/16 23:13 92 20 80 10/13/16 23:00 97 20 89/61 98 Mechanical Ventilator 80.0 10/13/16 22:30 98.4 97 20 86/63 98 Mechanical Ventilator 80.0 10/13/16 22:15 102 20 88/70 98 Mechanical Ventilator 80.0 10/13/16 22:00 95 20 112/76 95 Mechanical Ventilator 80.0 10/13/16 21:45 102 20 97/67 95 Mechanical Ventilator 80.0 10/13/16 21:30 103 20 97/72 95 Mechanical Ventilator 80.0 10/13/16 21:15 105 20 98/67 95 Mechanical Ventilator 80.0 10/13/16 21:00 106 19 112/76 95 Mechanical Ventilator 80.0 10/13/16 20:52 102 21 80 10/13/16 20:45 106 19 103/72 100 Mechanical Ventilator 80.0 10/13/16 20:30 108 20 111/84 100 Mechanical Ventilator 80.0 10/13/16 20:15 108 19 98/72 100 Mechanical Ventilator 80.0 10/13/16 20:00 97.6 112 19 100/73 100 Mechanical Ventilator 80.0 10/13/16 19:45 112 18 98/72 100 Mechanical Ventilator 80.0 10/13/16 19:30 114 18 109/81 100 Mechanical Ventilator 80.0 10/13/16 19:15 113 17 87/64 100 Mechanical Ventilator 80.0 10/13/16 19:07 119 25 80 10/13/16 19:00 114 17 110/82 100 Mechanical Ventilator 80.0 10/13/16 18:30 113 18 94/65 100 Mechanical Ventilator 80.0 10/13/16 18:15 113 18 116/76 100 Mechanical Ventilator 80.0 10/13/16 18:02 88/60 10/13/16 18:00 113 17 115/76 100 Mechanical Ventilator 80.0 10/13/16 17:00 80 10/13/16 17:00 97.4 112 17 112/70 100 Mechanical Ventilator 80.0 10/13/16 16:45 118 18 104/71 100 Mechanical Ventilator 80 10/13/16 16:39 120 29 80 10/13/16 16:30 118 18 121/87 100 Mechanical Ventilator 80 10/13/16 16:15 111 19 109/74 93 Mechanical Ventilator 80 10/13/16 16:00 80 10/13/16 16:00 97.9 105 18 105/72 95 Mechanical Ventilator 80 10/13/16 15:15 107 19 95/69 95 Mechanical Ventilator 80 10/13/16 15:15 106 16 101/67 95 10/13/16 15:10 105 23 80 10/13/16 15:00 101/75 10/13/16 15:00 103 16 101/75 95 10/13/16 14:30 103 19 102/60 95 Mechanical Ventilator 80 10/13/16 14:00 103 19 101/68 95 Mechanical Ventilator 80 10/13/16 14:00 101/68 10/13/16 13:30 104 19 93/73 95 Mechanical Ventilator 80 10/13/16 13:19 112 23 80 10/13/16 13:00 104/67 10/13/16 13:00 118 20 104/76 95 Mechanical Ventilator 80 10/13/16 12:30 106 18 113/65 95 Mechanical Ventilator 80 Intake and Output 10/13/16 10/14/16 19:00 07:00 Intake Total 1629.53 ml 1950.0 ml Output Total 640 ml 980 ml Balance 989.53 ml 970.0 ml IV Total 1629.53 ml 1950.0 ml Output Urine Total 495 ml 420 ml Gastric Drainage Total 20 ml 20 ml Drainage Total 120 ml 220 ml Other 5 ml 320 ml Laboratory Tests Test 10/14/16 04:30 10/14/16 07:17 White Blood Count 9.6 K/UL (4.8-10.8) # Red Blood Count 3.00 M/UL (4.20-5.40) L Hemoglobin 8.6 G/DL (12.0-16.0) L Hematocrit 25.8 % (37.0-47.0) L Mean Corpuscular Volume 86 FL (80-99) Mean Corpuscular Hemoglobin 28.8 PG (27.0-31.0) Mean Corpuscular Hemoglobin Concent 33.4 G/DL (32.0-36.0) Red Cell Distribution Width 18.5 % (11.6-14.8) H Platelet Count 188 K/UL (150-450) Mean Platelet Volume 6.7 FL (6.5-10.1) Neutrophils (%) (Auto) % (45.0-75.0) Lymphocytes (%) (Auto) % (20.0-45.0) Monocytes (%) (Auto) % (1.0-10.0) Eosinophils (%) (Auto) % (0.0-3.0) Basophils (%) (Auto) % (0.0-2.0) Differential Total Cells Counted 100 Neutrophils % (Manual) 72 % (45-75) Lymphocytes % (Manual) 4 % (20-45) L Monocytes % (Manual) 5 % (1-10) Eosinophils % (Manual) 0 % (0-3) Basophils % (Manual) 0 % (0-2) Band Neutrophils 19 % (0-8) H Platelet Estimate Adequate Platelet Morphology Normal Hypochromasia 1+ Anisocytosis 1+ Sodium Level 137 mEQ/L (135-145) Potassium Level 4.0 mEQ/L (3.4-4.9) Chloride Level 102 mEQ/L (98-107) Carbon Dioxide Level 21 mEQ/L (20-30) Anion Gap 14 (5-15) Blood Urea Nitrogen 32 mg/dL (7-23) H Creatinine 1.5 mg/dL (0.5-0.9) H Estimat Glomerular Filtration Rate 43.8 mL/min (>60) Glucose Level 118 mg/dL (74-106) H Calcium Level 7.7 mg/dL (8.6-10.2) L Phosphorus Level 5.0 mg/dL (2.5-4.8) H Magnesium Level 2.0 mg/dL (1.7-2.5) Total Bilirubin 0.5 mg/dL (0.0-1.2) Aspartate Amino Transf (AST/SGOT) 22 U/L (5-40) Alanine Aminotransferase (ALT/SGPT) 8 U/L (3-33) Alkaline Phosphatase 41 U/L (35-104) Total Protein 4.5 g/dL (6.6-8.7) L Albumin 1.7 g/dL (3.5-5.2) L Globulin 2.8 g/dL Albumin/Globulin Ratio 0.6 (1.0-2.7) L Arterial Blood pH 7.440 (7.350-7.450) Arterial Blood Partial Pressure CO2 32.0 mmHg (35.0-45.0) L Arterial Blood Partial Pressure O2 173.0 mmHg (75.0-100.0) H Arterial Blood HCO3 21.2 mmol/L (22.0-26.0) L Arterial Blood Oxygen Saturation 98.0 % (92.0-98.0) Arterial Blood Base Excess -2.5 Isidro Test Height (Feet): 5 Height (Inches): 1.00 Weight (Pounds): 100 General Appearance: no apparent distress Cardiovascular: normal rate Respiratory/Chest: other - mech vent Abdominal Exam: normal bowel sounds, non tender, soft, incision site, other - NGT to LCIS Objective POSTOPERATIVE DIAGNOSES: 1. Complete bowel obstruction caused by large cervical cancer. 2. A small perforation of the distal terminal ileum. OPERATION PERFORMED: 1. Exploratory laparotomy. 2. Small bowel resection. 3. Creation of end ileostomy. 4. Creation of mucous fistula. 5. Lysis of adhesions. Kym Javier N.P. Oct 14, 2016 12:27
[2016-10-14 12:55] LABS: APPEARANCE,URINE CLEAR; KETONES,URINE NEGATIVE (NEGATIVE); LEUKOCYTE ESTERASE ,URINE NEGATIVE (NEGATIVE); NITRITE,URINE NEGATIVE (NEGATIVE); PH,URINE 5 (4.5-8.0); PROTEIN,URINE 2+ (NEGATIVE); UROBILINOGEN,URINE NORMAL MG/DL (0.0-1.0)
[2016-10-14 13:03] LABS: BACTERIA,URINE FEW /HPF; SQUAMOUS EPITHELIAL CELL,UR FEW /LPF (NONE/OCC); WBC,URINE 0-2 /HPF (0 - 2)
[2016-10-14] MEDS ORDERED: NS 275ml ONE (15:12)
[2016-10-14] MEDS ORDERED: D5W 275ml ONE (15:12)
[2016-10-14] MEDS ORDERED: D5 1/2NS 1000ml IV ONE (15:12)
[2016-10-14] MEDS ORDERED: Tubing IV Secondary IV ONE (15:12)
[2016-10-14 16:34] LABS: URIC ACID 4.6 mg/dL (3.0-7.5)
--- NOTE | 2016-10-14 16:34 | Diagnostic Imaging Report ---
Indication: Abnormal renal function tests Technique: Grayscale and duplex images of the kidneys, retroperitoneum, and bladder were obtained. Comparison:Abdomen ultrasound 06/30/2016 . Reference also made to CT scan dated 35 Findings: Right kidney measures 11.5 cm in length. Left kidney measures the point cm in length. Kidneys demonstrate increased echogenicity. There is mild right hydronephrosis. No definite focal renal abnormality. Normal inferior vena cava. Bladder is empty, contains a Atkinson catheter. Spleen demonstrates a unilocular 6.7 cm cyst. This is also demonstrated on recent CT and on prior ultrasound. Impression: Mild right hydronephrosis, not evident on CT of 4 days earlier. Etiology not demonstrated but downstream obstruction not excludable. Bilateral increased renal echogenicity, consistent with medical renal disease The bladder containing a Atkinson catheter Splenic cyst, also demonstrated on multiple prior studies
[2016-10-14 16:41] LABS: FREE T3 0.7 pg/mL (2.3-4.2)
--- NOTE | 2016-10-14 17:20 | Consultation ---
Consult Note Consult Note I was asked to evaluate the patient for rising serum Cr Patient presented to ER on October 10 for abdominal pain- Underwent abdominal surgery on October 12 Currently in ICU bed A- intubated on Vent, on pressors and NGT to suction Patient examined- Meds reviewed- . Assessment/Plan Acute renal failure likely due to septic Shock and Hypotension- - Septic shock - Acute respiratory failure - SBO (small bowel obstruction) - Metastatic adenocarcinoma - Colonic obstruction - Sepsis - S/P exploratory laparotomy - HypoAlbuminemia Plan: Hemodynamic support- ? Improve nutritional state ? TPN ? Monitor renal parameters and urine out put poor prognosis- per orders RISSA PERDOMO Oct 14, 2016 17:20
[2016-10-15] VITALS (42 sets, daily range): BP systolic 89–113; BP diastolic 51–71
[2016-10-15] MEDS: D5 1/2NS 1,000 ML IV SCH ×2 (02:27→10:02)
[2016-10-15 06:19] LABS: MEAN CORPUSCULAR HEMOGLOBIN 28.3 PG (27.0-31.0); MEAN CORPUSCULAR HGB CONC 32.7 G/DL (32.0-36.0); MEAN CORPUSCULAR VOLUME 87 FL (80-99); MEAN PLATELET VOLUME 7.1 FL (6.5-10.1); PLATELET COUNT 120 K/UL (150-450); RED BLOOD COUNT 2.39 M/UL (4.20-5.40); RED CELL DISTRIBUTION WIDTH 18.2 % (11.6-14.8); WHITE BLOOD COUNT 6.7 K/UL (4.8-10.8)
[2016-10-15 06:44] LABS: TROPONIN I < 0.30 ng/mL (<=0.30)
[2016-10-15 06:45] LABS: URIC ACID 3.8 mg/dL (3.0-7.5)
[2016-10-15 07:03] LABS: ALBUMIN/GLOBULIN RATIO 0.6 (1.0-2.7); CALCIUM 7.6 mg/dL (8.6-10.2); CREATININE 1.4 mg/dL (0.5-0.9); GLOMERULAR FILTRATION RATE 47.3 mL/min (>60); MAGNESIUM 1.9 mg/dL (1.7-2.5); PHOSPHORUS 4.3 mg/dL (2.5-4.8); POTASSIUM 3.2 mEQ/L (3.4-4.9); TOTAL PROTEIN 4.4 g/dL (6.6-8.7)
[2016-10-15 08:01] LABS: ANISOCYTOSIS 1+; BAND NEUTROPHILS % (MANUAL) 0 % (0-8); BASOPHILS % (MANUAL) 0 % (0-2); EOSINOPHILS % (MANUAL) 1 % (0-3); HYPOCHROMASIA OCCASIONAL; LYMPHOCYTES % (MANUAL) 6 % (20-45); NEUTROPHILS % (MANUAL) 90 % (45-75); PLATELET ESTIMATE ADEQUATE; PLATELET MORPHOLOGY NORMAL; TOTAL CELLS COUNTED 100
[2016-10-15] MEDS: Piperacillin/Tazobactam 3.375 GM in NS 110 ML IVPB SCH ×2 (08:08→21:37)
[2016-10-15] MEDS: Pantoprazole Inj IVP SCH ×2 (08:08→19:13)
[2016-10-15] MEDS: Morphine Sulfate 2mg/ml Inj IVP PRN (08:09)
[2016-10-15] MEDS: Heparin 5000 units/ml inj SUBQ SCH (08:10)
[2016-10-15 08:54] LABS: ABG ALLEN TEST POSITIVE; ABG BASE EXCESS -3.5
[2016-10-15 09:25] LABS: MEAN CORPUSCULAR HEMOGLOBIN 27.8 PG (27.0-31.0); MEAN CORPUSCULAR HGB CONC 32.1 G/DL (32.0-36.0); MEAN CORPUSCULAR VOLUME 87 FL (80-99); MEAN PLATELET VOLUME 6.7 FL (6.5-10.1); PLATELET COUNT 106 K/UL (150-450); RED BLOOD COUNT 2.42 M/UL (4.20-5.40); RED CELL DISTRIBUTION WIDTH 18.4 % (11.6-14.8); WHITE BLOOD COUNT 6.5 K/UL (4.8-10.8)
[2016-10-15 10:32] LABS: ANISOCYTOSIS 1+; BAND NEUTROPHILS % (MANUAL) 3 % (0-8); BASOPHILS % (MANUAL) 0 % (0-2); EOSINOPHILS % (MANUAL) 0 % (0-3); HYPOCHROMASIA OCCASIONAL; LYMPHOCYTES % (MANUAL) 3 % (20-45); NEUTROPHILS % (MANUAL) 90 % (45-75); PLATELET ESTIMATE DECREASED; PLATELET MORPHOLOGY NORMAL; POIKILOCYTOSIS OCCASIONAL; TOTAL CELLS COUNTED 100
--- NOTE | 2016-10-15 10:36 | Pulmonolgy Critical Care Note ---
Critical Care - Asmt/Plan Problems: (1) Septic shock (2) Acute respiratory failure (3) SBO (small bowel obstruction) (4) Metastatic adenocarcinoma (5) Colonic obstruction (6) Sepsis (7) S/P exploratory laparotomy Respiratory: monitor respiratory rate, adjust FIO2, CXR, ABG, weaning trial Cardiac: continue to monitor HR/BP, other - off pressors Renal: F/U I&O, decrease IV fluid Infectious Disease: check cultures, continue antibiotics Gastrointestinal: continue feedings/current rate Endocrine: monitor blood sugar, check HgA1C Hematologic: monitor H/H, transfuse if hgb<8.5 Neurologic: PRN Morphine, keep patient comfortable Prophylaxis: Protonix, Heparin Notes Reviewed: licensed pharmacist, renal Discussed with: nurses, consultants, counseling case managermanager environmental affairs - Objective Last 24 Hour Vital Signs Date Time Temp Pulse Resp B/P Pulse Ox O2 Delivery O2 Flow Rate FiO2 10/15/16 09:00 87 14 35 10/15/16 07:56 35 10/15/16 07:15 88 15 35 10/15/16 06:00 89 13 103/55 100 Mechanical Ventilator 35 10/15/16 05:10 96 14 35 10/15/16 05:00 95 13 91/51 100 Mechanical Ventilator 35 10/15/16 04:30 96 14 95/54 100 Mechanical Ventilator 35 10/15/16 04:15 98 14 100/55 100 Mechanical Ventilator 35 10/15/16 04:00 95 10/15/16 04:00 35 10/15/16 04:00 98.0 98 13 98/54 100 Mechanical Ventilator 35 10/15/16 03:45 98 13 95/53 100 Mechanical Ventilator 35 10/15/16 03:30 98 13 98/53 100 Mechanical Ventilator 35 10/15/16 03:30 100 16 35 10/15/16 03:15 99 13 89/56 100 Mechanical Ventilator 35 10/15/16 03:00 101 14 98/59 100 Mechanical Ventilator 35 10/15/16 02:45 100 13 102/54 100 Mechanical Ventilator 35 10/15/16 02:30 101 13 97/53 100 Mechanical Ventilator 35 10/15/16 02:15 102 13 96/57 100 Mechanical Ventilator 35 10/15/16 02:00 100 13 113/57 100 Mechanical Ventilator 35 10/15/16 01:45 101 13 106/57 100 Mechanical Ventilator 35 10/15/16 01:30 102 13 105/62 100 Mechanical Ventilator 35 10/15/16 01:15 103 13 105/57 100 Mechanical Ventilator 35 10/15/16 01:00 103 13 98/56 100 Mechanical Ventilator 35 10/15/16 00:54 105 17 35 10/15/16 00:45 105 12 106/59 100 Mechanical Ventilator 35 10/15/16 00:30 106 13 102/57 100 Mechanical Ventilator 35 10/15/16 00:15 107 14 105/60 100 Mechanical Ventilator 35 10/15/16 00:00 98.0 108 14 106/56 100 Mechanical Ventilator 35 10/15/16 00:00 35 10/15/16 00:00 108 10/14/16 23:45 110 14 121/67 100 Mechanical Ventilator 35 10/14/16 23:30 109 13 115/64 100 Mechanical Ventilator 35 10/14/16 23:28 109 16 35 10/14/16 23:00 111 18 119/65 100 Mechanical Ventilator 45 10/14/16 22:45 105 16 118/64 100 Mechanical Ventilator 45 10/14/16 22:38 98.7 10/14/16 22:30 114 17 126/62 100 Mechanical Ventilator 45 10/14/16 22:15 115 15 120/68 100 Mechanical Ventilator 45 10/14/16 22:00 114 16 124/63 100 Mechanical Ventilator 45 10/14/16 21:45 113 16 121/68 100 Mechanical Ventilator 45 10/14/16 21:30 111 15 115/65 100 Mechanical Ventilator 45 10/14/16 21:15 117 18 124/67 100 Mechanical Ventilator 45 10/14/16 21:00 113 19 124/64 100 Mechanical Ventilator 45 10/14/16 20:52 112 20 35 10/14/16 20:45 113 19 126/63 100 Mechanical Ventilator 45 10/14/16 20:30 104 18 105/65 100 Mechanical Ventilator 45 10/14/16 20:15 108 18 117/61 99 Mechanical Ventilator 45 10/14/16 20:00 98.7 104 17 112/52 100 Mechanical Ventilator 45 10/14/16 20:00 104 10/14/16 20:00 45 10/14/16 19:45 102 16 107/55 100 Mechanical Ventilator 45 10/14/16 19:30 102 16 92/53 100 Mechanical Ventilator 45 10/14/16 19:24 98.6 17 19:15 102 16 100/52 100 Mechanical Ventilator 45 17 19:00 103 16 107/53 99 Mechanical Ventilator 45 17 18:57 102 18 35 17 18:45 103 16 105/57 100 Mechanical Ventilator 45 17 18:30 102 17 103/55 100 Mechanical Ventilator 45 17 18:15 99 16 107/55 100 Mechanical Ventilator 45 17 18:01 99/56 17 18:00 103 17 110/52 97 Mechanical Ventilator 45 10/14/16 17:45 105 17 99/56 100 Mechanical Ventilator 45 17 17:30 104 17 100/54 100 Mechanical Ventilator 45 10/14/16 17:15 106 18 115/60 100 Mechanical Ventilator 45 10/14/16 17:00 100 17 101/51 99 Mechanical Ventilator 45 10/14/16 16:45 98 17 106/54 99 Mechanical Ventilator 45 10/14/16 16:43 98 18 45 10/14/16 16:15 97 17 97/52 97 Mechanical Ventilator 45 10/14/16 16:00 99 10/14/16 16:00 45 10/14/16 16:00 98.6 97 16 98/54 98 Mechanical Ventilator 45 10/14/16 15:45 97 16 99/64 98 Mechanical Ventilator 45 10/14/16 15:30 97 16 110/58 99 Mechanical Ventilator 45 10/14/16 15:30 96 18 101/52 97 Mechanical Ventilator 45 10/14/16 15:15 95 17 107/54 97 Mechanical Ventilator 45 10/14/16 15:02 98 18 45 10/14/16 15:00 95 17 97/57 100 Mechanical Ventilator 45 10/14/16 14:30 96 17 103/54 97 Mechanical Ventilator 45 10/14/16 14:00 94 17 94/50 97 Mechanical Ventilator 45 10/14/16 13:30 96 17 94/52 97 Mechanical Ventilator 45 10/14/16 13:00 97 17 104/54 97 Mechanical Ventilator 45 10/14/16 12:54 95 17 45 10/14/16 12:30 96 18 93/52 96 Mechanical Ventilator 45 10/14/16 12:18 45 10/14/16 12:16 98 10/14/16 12:00 98.0 95 17 104/54 98 Mechanical Ventilator 45 10/14/16 11:45 96 17 107/60 97 Mechanical Ventilator 45 10/14/16 11:30 97 19 109/65 98 Mechanical Ventilator 45 10/14/16 11:15 93 18 93/57 94 Mechanical Ventilator 45 10/14/16 11:00 94 17 99/55 94 Mechanical Ventilator 45 10/14/16 10:45 94 17 96/59 94 Mechanical Ventilator 45 Status: awake Condition: critical HEENT: atraumatic, normocephalic Neck: full ROM Heart: HR/BP stable, HR/BP unstable Abdomen: soft, non-tender Extremities: no C/C/E, edema Critical Care - Subjective ROS Limited/Unobtainable: No ICU Day: 4 Intubation Day: 4 Condition: critical EKG Rhythm: Sinus Rhythm FI02: 35 Vent Support Breath Rate: 14 Vent Support Mode: AC Vent Tidal Volume: 450 Sputum Amount: Scant PEEP: 5.0 PIP: 34 Fluids: d5 1/2 ns 125 I&O: Intake and Output 10/14/16 10/15/16 19:00 07:00 Intake Total 1716.25 ml 1545.0 ml Output Total 1315 ml 1245 ml Balance 401.25 ml 300.0 ml IV Total 1716.25 ml 1545.0 ml Output Urine Total 675 ml 715 ml Gastric Drainage Total 50 ml 0 ml Drainage Total 240 ml 200 ml Other 350 ml 330 ml # Bowel Movements 3 3 CXR: et in good position ET-Tube: 6.5 ET Position: 20 Labs: Laboratory Tests Test 10/14/16 10:49 10/14/16 12:00 10/15/16 04:40 10/15/16 08:30 Plasma/Serum Osmolality Pending Cortisol Pending Urine Color Pale yellow Urine Appearance Clear Urine pH 5 (4.5-8.0) Urine Specific [place] 1.015 (1.005-1.035) Urine Protein 2+ (NEGATIVE) H Urine Glucose (UA) Negative (NEGATIVE) Urine Ketones Negative (NEGATIVE) Urine Occult Blood 2+ (NEGATIVE) H Urine Nitrite Negative (NEGATIVE) Urine Bilirubin Negative (NEGATIVE) Urine Urobilinogen Normal MG/DL (0.0-1.0) Urine Leukocyte Esterase Negative (NEGATIVE) Urine RBC 2-4 /HPF (0 - 2) H Urine WBC 0-2 /HPF (0 - 2) Urine Squamous Epithelial Cells Few /LPF (NONE/OCC) Urine Bacteria Few /HPF (NONE) Urine Eosinophils None seen Urine Osmolality Pending Urine Random Sodium 29 mmol/L Urine Random Chloride 31 mmol/L Urine Potassium Timed 52 mmol/L White Blood Count 6.7 K/UL (4.8-10.8) 6.5 K/UL (4.8-10.8) Red Blood Count 2.39 M/UL (4.20-5.40) L 2.42 M/UL (4.20-5.40) L Hemoglobin 6.8 G/DL (12.0-16.0) *L 6.7 G/DL (12.0-16.0) *L Hematocrit 20.7 % (37.0-47.0) L 20.9 % (37.0-47.0) L Mean Corpuscular Volume 87 FL (80-99) 87 FL (80-99) Mean Corpuscular Hemoglobin 28.3 PG (27.0-31.0) 27.8 PG (27.0-31.0) Mean Corpuscular Hemoglobin Concent 32.7 G/DL (32.0-36.0) 32.1 G/DL (32.0-36.0) Red Cell Distribution Width 18.2 % (11.6-14.8) H 18.4 % (11.6-14.8) H Platelet Count 120 K/UL (150-450) L 106 K/UL (150-450) L Mean Platelet Volume 7.1 FL (6.5-10.1) 6.7 FL (6.5-10.1) Neutrophils (%) (Auto) % (45.0-75.0) % (45.0-75.0) Lymphocytes (%) (Auto) % (20.0-45.0) % (20.0-45.0) Monocytes (%) (Auto) % (1.0-10.0) % (1.0-10.0) Eosinophils (%) (Auto) % (0.0-3.0) % (0.0-3.0) Basophils (%) (Auto) % (0.0-2.0) % (0.0-2.0) Differential Total Cells Counted 100 100 Neutrophils % (Manual) 90 % (45-75) H 90 % (45-75) H Lymphocytes % (Manual) 6 % (20-45) L 3 % (20-45) L Monocytes % (Manual) 3 % (1-10) 4 % (1-10) Eosinophils % (Manual) 1 % (0-3) 0 % (0-3) Basophils % (Manual) 0 % (0-2) 0 % (0-2) Band Neutrophils 0 % (0-8) 3 % (0-8) Platelet Estimate Adequate Decreased L Platelet Morphology Normal Normal Hypochromasia Occasional Occasional Anisocytosis 1+ 1+ Sodium Level 134 mEQ/L (135-145) L Potassium Level 3.2 mEQ/L (3.4-4.9) L Chloride Level 97 mEQ/L (98-107) L Carbon Dioxide Level 22 mEQ/L (20-30) Anion Gap 15 (5-15) Blood Urea Nitrogen 27 mg/dL (7-23) H Creatinine 1.4 mg/dL (0.5-0.9) H Estimat Glomerular Filtration Rate 47.3 mL/min (>60) Glucose Level 78 mg/dL (74-106) Lactic Acid Level 0.80 mmol/L (0.66-2.22) Uric Acid 3.8 mg/dL (3.0-7.5) Calcium Level 7.6 mg/dL (8.6-10.2) L Phosphorus Level 4.3 mg/dL (2.5-4.8) Magnesium Level 1.9 mg/dL (1.7-2.5) Total Bilirubin 0.4 mg/dL (0.0-1.2) Gamma Glutamyl Transpeptidase 5 U/L (5-36) Aspartate Amino Transf (AST/SGOT) 22 U/L (5-40) Alanine Aminotransferase (ALT/SGPT) 8 U/L (3-33) Alkaline Phosphatase 41 U/L (35-104) Total Creatine Kinase 73 U/L (26-140) Troponin I < 0.30 ng/mL (<=0.30) C-Reactive Protein, Quantitative 34.0 mg/dL (< 0.5) H Pro-B-Type Natriuretic Peptide 5593 pg/mL (0-125) H Total Protein 4.4 g/dL (6.6-8.7) L Albumin 1.7 g/dL (3.5-5.2) L Globulin 2.7 g/dL Albumin/Globulin Ratio 0.6 (1.0-2.7) L Poikilocytosis Occasional Test 10/15/16 08:45 Arterial Blood pH 7.405 (7.350-7.450) Arterial Blood Partial Pressure CO2 34.0 mmHg (35.0-45.0) L Arterial Blood Partial Pressure O2 138.5 mmHg (75.0-100.0) H Arterial Blood HCO3 20.8 mmol/L (22.0-26.0) L Arterial Blood Oxygen Saturation 99.1 % (92.0-98.0) H Arterial Blood Base Excess -3.5 Isidro Test Positive APPLE COLON Oct 15, 2016 10:36
--- NOTE | 2016-10-15 10:42 | General Progress Note ---
Progress Note Progress Note Surgery: Patient seen and examined at bedside. doing well. improving. off pressors. following commands. leukocytosis resolved. drop in h/h and plt. ostomy functional. good uop. lucy drain serous. midline wound c/d/i. renal ultrasound reviewed. mild right hydronephrosis concerning and could potentially be from tumor invading the right ureter. huge tumor burden in pelvis and around abdomen. will need to monitor closely. 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 hold heparin for now. Wean vent as tolerated. extubate when ready okay to start feeds through NG tube today. start at 10cc/hr and advance to goal as tolerated ostomy care and management Keep lucy drain in place. output decreasing but still too high for removal. did have significant ascites prior to surgery and will likely have fair amount post op. Transfuse PRBP. recheck labs later this evening. trend labs. Toni Marquis Oct 15, 2016 10:42
--- NOTE | 2016-10-15 10:50 | General Progress Note ---
Assessment/Plan Status: unchanged Status Narrative Off pressors Hgb low 6.4 Cr 1.4 a bit lower Assessment/Plan Acute renal failure likely due to septic Shock and Hypotension- - Septic shock - Acute respiratory failure - SBO (small bowel obstruction) - Metastatic adenocarcinoma - Colonic obstruction - Sepsis - S/P exploratory laparotomy - HypoAlbuminemia Plan: Hemodynamic support- ? Improve nutritional state ? TPN ? Monitor renal parameters and urine out put poor prognosis- per orders Subjective ROS Limited/Unobtainable: Yes Allergies: Coded Allergies: No Known Allergies (Unverified , 04/13/15) Objective Last 24 Hour Vital Signs Date Time Temp Pulse Resp B/P Pulse Ox O2 Delivery O2 Flow Rate FiO2 10/15/16 09:00 87 14 35 10/15/16 07:56 35 10/15/16 07:15 88 15 35 10/15/16 06:00 89 13 103/55 100 Mechanical Ventilator 35 10/15/16 05:10 96 14 35 10/15/16 05:00 95 13 91/51 100 Mechanical Ventilator 35 10/15/16 04:30 96 14 95/54 100 Mechanical Ventilator 35 10/15/16 04:15 98 14 100/55 100 Mechanical Ventilator 35 10/15/16 04:00 95 10/15/16 04:00 35 10/15/16 04:00 98.0 98 13 98/54 100 Mechanical Ventilator 35 10/15/16 03:45 98 13 95/53 100 Mechanical Ventilator 35 10/15/16 03:30 98 13 98/53 100 Mechanical Ventilator 35 10/15/16 03:30 100 16 35 10/15/16 03:15 99 13 89/56 100 Mechanical Ventilator 35 10/15/16 03:00 101 14 98/59 100 Mechanical Ventilator 35 10/15/16 02:45 100 13 102/54 100 Mechanical Ventilator 35 10/15/16 02:30 101 13 97/53 100 Mechanical Ventilator 35 10/15/16 02:15 102 13 96/57 100 Mechanical Ventilator 35 10/15/16 02:00 100 13 113/57 100 Mechanical Ventilator 35 10/15/16 01:45 101 13 106/57 100 Mechanical Ventilator 35 10/15/16 01:30 102 13 105/62 100 Mechanical Ventilator 35 10/15/16 01:15 103 13 105/57 100 Mechanical Ventilator 35 10/15/16 01:00 103 13 98/56 100 Mechanical Ventilator 35 10/15/16 00:54 105 17 35 10/15/16 00:45 105 12 106/59 100 Mechanical Ventilator 35 10/15/16 00:30 106 13 102/57 100 Mechanical Ventilator 35 10/15/16 00:15 107 14 105/60 100 Mechanical Ventilator 35 10/15/16 00:00 98.0 108 14 106/56 100 Mechanical Ventilator 35 10/15/16 00:00 35 10/15/16 00:00 108 10/14/16 23:45 110 14 121/67 100 Mechanical Ventilator 35 10/14/16 23:30 109 13 115/64 100 Mechanical Ventilator 35 10/14/16 23:28 109 16 35 10/14/16 23:00 111 18 119/65 100 Mechanical Ventilator 45 10/14/16 22:45 105 16 118/64 100 Mechanical Ventilator 45 10/14/16 22:38 98.7 10/14/16 22:30 114 17 126/62 100 Mechanical Ventilator 45 10/14/16 22:15 115 15 120/68 100 Mechanical Ventilator 45 10/14/16 22:00 114 16 124/63 100 Mechanical Ventilator 45 10/14/16 21:45 113 16 121/68 100 Mechanical Ventilator 45 10/14/16 21:30 111 15 115/65 100 Mechanical Ventilator 45 10/14/16 21:15 117 18 124/67 100 Mechanical Ventilator 45 10/14/16 21:00 113 19 124/64 100 Mechanical Ventilator 45 10/14/16 20:52 112 20 35 10/14/16 20:45 113 19 126/63 100 Mechanical Ventilator 45 10/14/16 20:30 104 18 105/65 100 Mechanical Ventilator 45 10/14/16 20:15 108 18 117/61 99 Mechanical Ventilator 45 10/14/16 20:00 98.7 104 17 112/52 100 Mechanical Ventilator 45 10/14/16 20:00 104 10/14/16 20:00 45 10/14/16 19:45 102 16 107/55 100 Mechanical Ventilator 45 10/14/16 19:30 102 16 92/53 100 Mechanical Ventilator 45 10/14/16 19:24 98.6 10/14/16 19:15 102 16 100/52 100 Mechanical Ventilator 45 10/14/16 19:00 103 16 107/53 99 Mechanical Ventilator 45 3/9/17 18:57 102 18 35 3/9/17 18:45 103 16 105/57 100 Mechanical Ventilator 45 39/17 18:30 102 17 103/55 100 Mechanical Ventilator 45 3/9/17 18:15 99 16 107/55 100 Mechanical Ventilator 45 39/17 18:01 99/56 3/917 18:00 103 17 110/52 97 Mechanical Ventilator 45 917 17:45 105 17 99/56 100 Mechanical Ventilator 45 10/14/17 17:30 104 17 100/54 100 Mechanical Ventilator 45 10/14/17 17:15 106 18 115/60 100 Mechanical Ventilator 45 17 17:00 100 17 101/51 99 Mechanical Ventilator 45 17 16:45 98 17 106/54 99 Mechanical Ventilator 45 17 16:43 98 18 45 17 16:15 97 17 97/52 97 Mechanical Ventilator 45 17 16:00 99 10/14/16 16:00 45 10/14/16 16:00 98.6 97 16 98/54 98 Mechanical Ventilator 45 10/14/16 15:45 97 16 99/64 98 Mechanical Ventilator 45 10/14/16 15:30 97 16 110/58 99 Mechanical Ventilator 45 17 15:30 96 18 101/52 97 Mechanical Ventilator 45 17 15:15 95 17 107/54 97 Mechanical Ventilator 45 17 15:02 98 18 45 17 15:00 95 17 97/57 100 Mechanical Ventilator 45 17 14:30 96 17 103/54 97 Mechanical Ventilator 45 17 14:00 94 17 94/50 97 Mechanical Ventilator 45 17 13:30 96 17 94/52 97 Mechanical Ventilator 45 17 13:00 97 17 104/54 97 Mechanical Ventilator 45 17 12:54 95 17 45 10/14/17 12:30 96 18 93/52 96 Mechanical Ventilator 45 17 12:18 45 /9/17 12:16 98 /9/17 12:00 98.0 95 17 104/54 98 Mechanical Ventilator 45 17 11:45 96 17 107/60 97 Mechanical Ventilator 45 17 11:30 97 19 109/65 98 Mechanical Ventilator 45 10/14/16 11:15 93 18 93/57 94 Mechanical Ventilator 45 10/14/16 11:00 94 17 99/55 94 Mechanical Ventilator 45 Intake and Output 10/14/16 10/15/16 19:00 07:00 Intake Total 1716.25 ml 1545.0 ml Output Total 1315 ml 1245 ml Balance 401.25 ml 300.0 ml IV Total 1716.25 ml 1545.0 ml Output Urine Total 675 ml 715 ml Gastric Drainage Total 50 ml 0 ml Drainage Total 240 ml 200 ml Other 350 ml 330 ml # Bowel Movements 3 3 Laboratory Tests 10/14/16 10:49: Plasma/Serum Osmolality [Pending], Cortisol [Pending] 10/14/16 12:00: Urine Color Pale yellow, Urine Appearance Clear, Urine pH 5, Urine Specific [place] 1.015, Urine Protein 2+H, Urine Glucose (UA) Negative, Urine Ketones Negative, Urine Occult Blood 2+H, Urine Nitrite Negative, Urine Bilirubin Negative, Urine Urobilinogen Normal, Urine Leukocyte Esterase Negative, Urine RBC 2-4H, Urine WBC 0-2, Urine Squamous Epithelial Cells Few, Urine Bacteria Few , Urine Eosinophils None seen, Urine Osmolality [Pending], Urine Random Sodium 29, Urine Random Chloride 31, Urine Potassium Timed 52 10/15/16 04:40: White Blood Count 6.7, Red Blood Count 2.39L, Hemoglobin 6.8*L, Hematocrit 20.7L , Mean Corpuscular Volume 87, Mean Corpuscular Hemoglobin 28.3, Mean Corpuscular Hemoglobin Concent 32.7, Red Cell Distribution Width 18.2H, Platelet Count 120L, Mean Platelet Volume 7.1, Neutrophils (%) (Auto) , Lymphocytes (%) (Auto) , Monocytes (%) (Auto) , Eosinophils (%) (Auto) , Basophils (%) (Auto) , Differential Total Cells Counted 100, Neutrophils % ( Manual) 90H, Lymphocytes % (Manual) 6L, Monocytes % (Manual) 3, Eosinophils % ( Manual) 1, Basophils % (Manual) 0, Band Neutrophils 0, Platelet Estimate Adequate, Platelet Morphology Normal, Hypochromasia Occasional, Anisocytosis 1+ , Sodium Level 134L, Potassium Level 3.2L, Chloride Level 97L, Carbon Dioxide Level 22, Anion Gap 15, Blood Urea Nitrogen 27H, Creatinine 1.4H, Estimat Glomerular Filtration Rate 47.3, Glucose Level 78, Lactic Acid Level 0.80, Uric Acid 3.8, Calcium Level 7.6L, Phosphorus Level 4.3, Magnesium Level 1.9, Total Bilirubin 0.4, Gamma Glutamyl Transpeptidase 5, Aspartate Amino Transf (AST/SGOT ) 22, Alanine Aminotransferase (ALT/SGPT) 8, Alkaline Phosphatase 41, Total Creatine Kinase 73, Troponin I < 0.30, C-Reactive Protein, Quantitative 34.0H, Pro-B-Type Natriuretic Peptide 5593H, Total Protein 4.4L, Albumin 1.7L, Globulin 2.7, Albumin/Globulin Ratio 0.6L 10/15/16 08:30: White Blood Count 6.5, Red Blood Count 2.42L, Hemoglobin 6.7*L, Hematocrit 20.9L , Mean Corpuscular Volume 87, Mean Corpuscular Hemoglobin 27.8, Mean Corpuscular Hemoglobin Concent 32.1, Red Cell Distribution Width 18.4H, Platelet Count 106L, Mean Platelet Volume 6.7, Neutrophils (%) (Auto) , Lymphocytes (%) (Auto) , Monocytes (%) (Auto) , Eosinophils (%) (Auto) , Basophils (%) (Auto) , Differential Total Cells Counted 100, Neutrophils % ( Manual) 90H, Lymphocytes % (Manual) 3L, Monocytes % (Manual) 4, Eosinophils % ( Manual) 0, Basophils % (Manual) 0, Band Neutrophils 3, Platelet Estimate DecreasedL, Platelet Morphology Normal, Hypochromasia Occasional, Anisocytosis 1 +, Poikilocytosis Occasional 10/15/16 08:45: Arterial Blood pH 7.405, Arterial Blood Partial Pressure CO2 34.0L, Arterial Blood Partial Pressure O2 138.5H, Arterial Blood HCO3 20.8L, Arterial Blood Oxygen Saturation 99.1H, Arterial Blood Base Excess -3.5, Isidro Test Positive Height (Feet): 5 Height (Inches): 1.00 Weight (Pounds): 100 General Appearance: no apparent distress, lethargic Neck: stiff neck Cardiovascular: tachycardia Respiratory/Chest: decreased breath sounds Abdomen: distended RISSA PERDOMO Oct 15, 2016 10:50
[2016-10-15 13:12] LABS: CORTISOL LC 120.7 ug/dL (.)
--- NOTE | 2016-10-15 13:33 | Diagnostic Imaging Report ---
Indication: Dyspnea Comparison: 10/14/2016 A single view chest radiograph was obtained. Findings: Hazy left basilar opacity noted. Tubes and lines are stable except for the NG tube which is now in good position. Heart is mildly enlarged. Mild platelike atelectasis at the right lung base noted. Impression: Left pleural effusion NG tube now in good position.
--- NOTE | 2016-10-15 13:56 | GI Progress Note ---
Assessment/Plan Problems: (1) Dilated bowel ICD Codes: K59.3 - Megacolon, not elsewhere classified SNOMED: 47064413 (2) Abdominal pain ICD Codes: R10.9 - Abdominal pain SNOMED: 13585382 (3) Anemia ICD Codes: D64.9 - Anemia SNOMED: 603781849 (4) SBO (small bowel obstruction) ICD Codes: K56.69 - SBO (small bowel obstruction) SNOMED: 187705773 (5) Metastatic adenocarcinoma ICD Codes: C79.9 - Secondary malignant neoplasm of unspecified site SNOMED: 8184002, 552810992 Status: unchanged Status Narrative Discussed with Dr. Valdez. Assessment/Plan s/p ex lap, fu surgical recs lipase unremarkable per surgery >> large hard non-mobile completely obstructing extrinsic tumor maintain NPO + IVFs ppi fu labs Subjective Subjective limited Objective Last 24 Hour Vital Signs Date Time Temp Pulse Resp B/P Pulse Ox O2 Delivery O2 Flow Rate FiO2 10/15/16 13:00 85 10 35 10/15/16 11:00 88 15 35 10/15/16 11:00 91 15 97/52 100 Mechanical Ventilator 35 10/15/16 10:00 91 15 97/52 100 Mechanical Ventilator 35 10/15/16 09:00 87 14 35 10/15/16 09:00 88 14 96/58 100 Mechanical Ventilator 35 10/15/16 08:00 97.6 89 14 100/60 100 Mechanical Ventilator 35 10/15/16 08:00 93 10/15/16 07:56 35 10/15/16 07:15 88 15 35 10/15/16 07:15 88 13 99/55 100 Mechanical Ventilator 35 10/15/16 06:00 89 13 103/55 100 Mechanical Ventilator 35 10/15/16 05:10 96 14 35 10/15/16 05:00 95 13 91/51 100 Mechanical Ventilator 35 10/15/16 04:30 96 14 95/54 100 Mechanical Ventilator 35 10/15/16 04:15 98 14 100/55 100 Mechanical Ventilator 35 10/15/16 04:00 95 10/15/16 04:00 35 10/15/16 04:00 98.0 98 13 98/54 100 Mechanical Ventilator 35 10/15/16 03:45 98 13 95/53 100 Mechanical Ventilator 35 10/15/16 03:30 98 13 98/53 100 Mechanical Ventilator 35 10/15/16 03:30 100 16 35 10/15/16 03:15 99 13 89/56 100 Mechanical Ventilator 35 10/15/16 03:00 101 14 98/59 100 Mechanical Ventilator 35 10/15/16 02:45 100 13 102/54 100 Mechanical Ventilator 35 10/15/16 02:30 101 13 97/53 100 Mechanical Ventilator 35 10/15/16 02:15 102 13 96/57 100 Mechanical Ventilator 35 10/15/16 02:00 100 13 113/57 100 Mechanical Ventilator 35 10/15/16 01:45 101 13 106/57 100 Mechanical Ventilator 35 10/15/16 01:30 102 13 105/62 100 Mechanical Ventilator 35 10/15/16 01:15 103 13 105/57 100 Mechanical Ventilator 35 10/15/16 01:00 103 13 98/56 100 Mechanical Ventilator 35 10/15/16 00:54 105 17 35 10/15/16 00:45 105 12 106/59 100 Mechanical Ventilator 35 10/15/16 00:30 106 13 102/57 100 Mechanical Ventilator 35 10/15/16 00:15 107 14 105/60 100 Mechanical Ventilator 35 10/15/16 00:00 98.0 108 14 106/56 100 Mechanical Ventilator 35 10/15/16 00:00 35 10/15/16 00:00 108 10/14/16 23:45 110 14 121/67 100 Mechanical Ventilator 35 10/14/16 23:30 109 13 115/64 100 Mechanical Ventilator 35 10/14/16 23:28 109 16 35 10/14/16 23:00 111 18 119/65 100 Mechanical Ventilator 45 10/14/16 22:45 105 16 118/64 100 Mechanical Ventilator 45 10/14/16 22:38 98.7 10/14/16 22:30 114 17 126/62 100 Mechanical Ventilator 45 10/14/16 22:15 115 15 120/68 100 Mechanical Ventilator 45 10/14/16 22:00 114 16 124/63 100 Mechanical Ventilator 45 10/14/16 21:45 113 16 121/68 100 Mechanical Ventilator 45 10/14/16 21:30 111 15 115/65 100 Mechanical Ventilator 45 10/14/16 21:15 117 18 124/67 100 Mechanical Ventilator 45 10/14/16 21:00 113 19 124/64 100 Mechanical Ventilator 45 3/9/17 20:52 112 20 35 3/9/17 20:45 113 19 126/63 100 Mechanical Ventilator 45 17 20:30 104 18 105/65 100 Mechanical Ventilator 45 17 20:15 108 18 117/61 99 Mechanical Ventilator 45 917 20:00 98.7 104 17 112/52 100 Mechanical Ventilator 45 17 20:00 104 10/14/16 20:00 45 17 19:45 102 16 107/55 100 Mechanical Ventilator 45 17 19:30 102 16 92/53 100 Mechanical Ventilator 45 10/14/16 19:24 98.6 17 19:15 102 16 100/52 100 Mechanical Ventilator 45 10/14/16 19:00 103 16 107/53 99 Mechanical Ventilator 45 10/14/16 18:57 102 18 35 10/14/16 18:45 103 16 105/57 100 Mechanical Ventilator 45 10/14/16 18:30 102 17 103/55 100 Mechanical Ventilator 45 10/14/16 18:15 99 16 107/55 100 Mechanical Ventilator 45 10/14/16 18:01 99/56 10/14/16 18:00 103 17 110/52 97 Mechanical Ventilator 45 10/14/16 17:45 105 17 99/56 100 Mechanical Ventilator 45 10/14/16 17:30 104 17 100/54 100 Mechanical Ventilator 45 10/14/16 17:15 106 18 115/60 100 Mechanical Ventilator 45 17 17:00 100 17 101/51 99 Mechanical Ventilator 45 10/14/16 16:45 98 17 106/54 99 Mechanical Ventilator 45 10/14/16 16:43 98 18 45 17 16:15 97 17 97/52 97 Mechanical Ventilator 45 17 16:00 99 917 16:00 45 17 16:00 98.6 97 16 98/54 98 Mechanical Ventilator 45 17 15:45 97 16 99/64 98 Mechanical Ventilator 45 17 15:30 97 16 110/58 99 Mechanical Ventilator 45 17 15:30 96 18 101/52 97 Mechanical Ventilator 45 17 15:15 95 17 107/54 97 Mechanical Ventilator 45 17 15:02 98 18 45 3/9/17 15:00 95 17 97/57 100 Mechanical Ventilator 45 10/14/16 14:30 96 17 103/54 97 Mechanical Ventilator 45 10/14/16 14:00 94 17 94/50 97 Mechanical Ventilator 45 Intake and Output 10/14/16 10/15/16 19:00 07:00 Intake Total 1716.25 ml 1545.0 ml Output Total 1315 ml 1245 ml Balance 401.25 ml 300.0 ml IV Total 1716.25 ml 1545.0 ml Output Urine Total 675 ml 715 ml Gastric Drainage Total 50 ml 0 ml Drainage Total 240 ml 200 ml Other 350 ml 330 ml # Bowel Movements 3 3 Laboratory Tests Test 10/15/16 04:40 10/15/16 08:30 10/15/16 08:45 White Blood Count 6.7 K/UL (4.8-10.8) 6.5 K/UL (4.8-10.8) Red Blood Count 2.39 M/UL (4.20-5.40) L 2.42 M/UL (4.20-5.40) L Hemoglobin 6.8 G/DL (12.0-16.0) *L 6.7 G/DL (12.0-16.0) *L Hematocrit 20.7 % (37.0-47.0) L 20.9 % (37.0-47.0) L Mean Corpuscular Volume 87 FL (80-99) 87 FL (80-99) Mean Corpuscular Hemoglobin 28.3 PG (27.0-31.0) 27.8 PG (27.0-31.0) Mean Corpuscular Hemoglobin Concent 32.7 G/DL (32.0-36.0) 32.1 G/DL (32.0-36.0) Red Cell Distribution Width 18.2 % (11.6-14.8) H 18.4 % (11.6-14.8) H Platelet Count 120 K/UL (150-450) L 106 K/UL (150-450) L Mean Platelet Volume 7.1 FL (6.5-10.1) 6.7 FL (6.5-10.1) Neutrophils (%) (Auto) % (45.0-75.0) % (45.0-75.0) Lymphocytes (%) (Auto) % (20.0-45.0) % (20.0-45.0) Monocytes (%) (Auto) % (1.0-10.0) % (1.0-10.0) Eosinophils (%) (Auto) % (0.0-3.0) % (0.0-3.0) Basophils (%) (Auto) % (0.0-2.0) % (0.0-2.0) Differential Total Cells Counted 100 100 Neutrophils % (Manual) 90 % (45-75) H 90 % (45-75) H Lymphocytes % (Manual) 6 % (20-45) L 3 % (20-45) L Monocytes % (Manual) 3 % (1-10) 4 % (1-10) Eosinophils % (Manual) 1 % (0-3) 0 % (0-3) Basophils % (Manual) 0 % (0-2) 0 % (0-2) Band Neutrophils 0 % (0-8) 3 % (0-8) Platelet Estimate Adequate Decreased L Platelet Morphology Normal Normal Hypochromasia Occasional Occasional Anisocytosis 1+ 1+ Sodium Level 134 mEQ/L (135-145) L Potassium Level 3.2 mEQ/L (3.4-4.9) L Chloride Level 97 mEQ/L (98-107) L Carbon Dioxide Level 22 mEQ/L (20-30) Anion Gap 15 (5-15) Blood Urea Nitrogen 27 mg/dL (7-23) H Creatinine 1.4 mg/dL (0.5-0.9) H Estimat Glomerular Filtration Rate 47.3 mL/min (>60) Glucose Level 78 mg/dL (74-106) Lactic Acid Level 0.80 mmol/L (0.66-2.22) Uric Acid 3.8 mg/dL (3.0-7.5) Calcium Level 7.6 mg/dL (8.6-10.2) L Phosphorus Level 4.3 mg/dL (2.5-4.8) Magnesium Level 1.9 mg/dL (1.7-2.5) Total Bilirubin 0.4 mg/dL (0.0-1.2) Gamma Glutamyl Transpeptidase 5 U/L (5-36) Aspartate Amino Transf (AST/SGOT) 22 U/L (5-40) Alanine Aminotransferase (ALT/SGPT) 8 U/L (3-33) Alkaline Phosphatase 41 U/L (35-104) Total Creatine Kinase 73 U/L (26-140) Troponin I < 0.30 ng/mL (<=0.30) C-Reactive Protein, Quantitative 34.0 mg/dL (< 0.5) H Pro-B-Type Natriuretic Peptide 5593 pg/mL (0-125) H Total Protein 4.4 g/dL (6.6-8.7) L Albumin 1.7 g/dL (3.5-5.2) L Globulin 2.7 g/dL Albumin/Globulin Ratio 0.6 (1.0-2.7) L Poikilocytosis Occasional Arterial Blood pH 7.405 (7.350-7.450) Arterial Blood Partial Pressure CO2 34.0 mmHg (35.0-45.0) L Arterial Blood Partial Pressure O2 138.5 mmHg (75.0-100.0) H Arterial Blood HCO3 20.8 mmol/L (22.0-26.0) L Arterial Blood Oxygen Saturation 99.1 % (92.0-98.0) H Arterial Blood Base Excess -3.5 Isidro Test Positive Height (Feet): 5 Height (Inches): 1.00 Weight (Pounds): 100 General Appearance: no apparent distress Cardiovascular: normal rate Respiratory/Chest: other - mech vent Abdominal Exam: other - NGT to LCIS Objective POSTOPERATIVE DIAGNOSES: 1. Complete bowel obstruction caused by large cervical cancer. 2. A small perforation of the distal terminal ileum. OPERATION PERFORMED: 1. Exploratory laparotomy. 2. Small bowel resection. 3. Creation of end ileostomy. 4. Creation of mucous fistula. 5. Lysis of adhesions. Kym Javier N.P. Oct 15, 2016 13:56
[2016-10-16] VITALS (24 sets, daily range): BP systolic 92–125; BP diastolic 62–93
[2016-10-16] MEDS: Morphine Sulfate 2mg/ml Inj IVP PRN (04:18)
[2016-10-16 05:15] LABS: MEAN CORPUSCULAR HEMOGLOBIN 28.2 PG (27.0-31.0); MEAN CORPUSCULAR HGB CONC 32.5 G/DL (32.0-36.0); MEAN CORPUSCULAR VOLUME 87 FL (80-99); MEAN PLATELET VOLUME 7.2 FL (6.5-10.1); PLATELET COUNT 147 K/UL (150-450); RED BLOOD COUNT 3.62 M/UL (4.20-5.40); RED CELL DISTRIBUTION WIDTH 17.1 % (11.6-14.8); WHITE BLOOD COUNT 9.8 K/UL (4.8-10.8)
[2016-10-16 05:21] LABS: ALBUMIN/GLOBULIN RATIO 0.6 (1.0-2.7); CREATININE 1.3 mg/dL (0.5-0.9); GLOMERULAR FILTRATION RATE 51.5 mL/min (>60); PHOSPHORUS 4.1 mg/dL (2.5-4.8); POTASSIUM 4.3 mEQ/L (3.4-4.9); TOTAL PROTEIN 4.8 g/dL (6.6-8.7)
--- NOTE | 2016-10-16 07:57 | General Surgery Progress Note ---
General Surgery-Progress Note Subjective Day of Surgery: po day 4 Procedure Performed sp exploratory laparotomy, small bowel resection, ileostomy and mucous fistula for SBO 2o to carcinomatosis Symptoms: improved, pain same Additional Comments awake alert, intubated. rsponding appropriately NAD Objective Last 24 Hour Vital Signs Date Time Temp Pulse Resp B/P Pulse Ox O2 Delivery O2 Flow Rate FiO2 10/16/16 07:00 78 14 104/66 100 Mechanical Ventilator 35 10/16/16 06:40 77 14 35 10/16/16 06:00 82 14 110/72 100 Mechanical Ventilator 35 10/16/16 05:16 81 14 35 10/16/16 05:00 80 14 106/67 100 Mechanical Ventilator 35 10/16/16 04:00 77 10/16/16 04:00 98.0 77 14 95/65 100 Mechanical Ventilator 35 10/16/16 04:00 35 10/16/16 03:07 74 14 35 10/16/16 03:00 79 14 92/62 100 Mechanical Ventilator 35 10/16/16 02:00 80 14 102/62 100 Mechanical Ventilator 35 10/16/16 01:12 81 14 35 10/16/16 01:00 79 14 102/62 100 Mechanical Ventilator 35 10/16/16 00:00 80 10/16/16 00:00 35 10/16/16 00:00 98.2 77 14 99/63 100 35 10/15/16 23:00 79 14 111/71 100 35 10/15/16 22:52 80 14 35 10/15/16 22:00 82 14 101/69 100 35 10/15/16 21:00 83 14 102/61 100 35 10/15/16 20:50 86 17 35 10/15/16 20:00 84 14 97/56 100 Mechanical Ventilator 35 10/15/16 20:00 35 10/15/16 20:00 84 10/15/16 19:00 85 14 95/58 100 Mechanical Ventilator 35 10/15/16 18:38 85 19 35 10/15/16 18:30 87 14 105/57 100 Mechanical Ventilator 35 10/15/16 18:00 85 14 110/55 100 Mechanical Ventilator 35 10/15/16 17:30 85 14 96/58 100 Mechanical Ventilator 35 10/15/16 17:00 79 14 35 10/15/16 17:00 85 14 102/58 99 Mechanical Ventilator 35 10/15/16 16:30 85 15 94/56 99 Mechanical Ventilator 35 10/15/16 16:00 35 10/15/16 16:00 86 14 93/55 100 Mechanical Ventilator 35 10/15/16 16:00 84 10/15/16 15:54 87 10/15/16 15:30 90 14 96/58 98 Mechanical Ventilator 35 10/15/16 15:19 82 14 35 10/15/16 15:00 85 11 96/53 99 Mechanical Ventilator 35 10/15/16 14:00 84 12 93/53 100 Mechanical Ventilator 35 10/15/16 13:00 85 10 35 10/15/16 13:00 85 12 91/57 100 Mechanical Ventilator 35 10/15/16 12:00 97.4 85 12 91/54 100 Mechanical Ventilator 35 10/15/16 11:30 35 10/15/16 11:00 88 15 35 10/15/16 11:00 91 15 97/52 100 Mechanical Ventilator 35 10/15/16 10:00 91 15 97/52 100 Mechanical Ventilator 35 10/15/16 09:00 87 14 35 10/15/16 09:00 88 14 96/58 100 Mechanical Ventilator 35 10/15/16 08:00 97.6 89 14 100/60 100 Mechanical Ventilator 35 10/15/16 08:00 93 10/15/16 07:56 35 I&O Intake and Output 10/15/16 10/16/16 19:00 07:00 Intake Total 800 ml 1120.0 ml Output Total 1030 ml 1175 ml Balance -230 ml -55.0 ml Free Water 100 ml IV Total 760 ml 760.0 ml Tube Feeding 40 ml 260 ml Output Urine Total 700 ml 510 ml Drainage Total 160 ml 240 ml Other 170 ml 425 ml # Bowel Movements 3 3 Dressing: dry Wound: clean Drains: sander - copious serosanguinous drainage Abdomen: soft, distended, absent bowel sounds, other - ileostomy with gas and liquid stool Extremities: other - in restraints Laboratory Tests Test 10/15/16 08:30 10/15/16 08:45 10/16/16 04:00 White Blood Count 6.5 K/UL (4.8-10.8) 9.8 K/UL (4.8-10.8) # Red Blood Count 2.42 M/UL (4.20-5.40) L 3.62 M/UL (4.20-5.40) L Hemoglobin 6.7 G/DL (12.0-16.0) *L 10.2 G/DL (12.0-16.0) #L Hematocrit 20.9 % (37.0-47.0) L 31.4 % (37.0-47.0) #L Mean Corpuscular Volume 87 FL (80-99) 87 FL (80-99) Mean Corpuscular Hemoglobin 27.8 PG (27.0-31.0) 28.2 PG (27.0-31.0) Mean Corpuscular Hemoglobin Concent 32.1 G/DL (32.0-36.0) 32.5 G/DL (32.0-36.0) Red Cell Distribution Width 18.4 % (11.6-14.8) H 17.1 % (11.6-14.8) H Platelet Count 106 K/UL (150-450) L 147 K/UL (150-450) L Mean Platelet Volume 6.7 FL (6.5-10.1) 7.2 FL (6.5-10.1) Neutrophils (%) (Auto) % (45.0-75.0) % (45.0-75.0) Lymphocytes (%) (Auto) % (20.0-45.0) % (20.0-45.0) Monocytes (%) (Auto) % (1.0-10.0) % (1.0-10.0) Eosinophils (%) (Auto) % (0.0-3.0) % (0.0-3.0) Basophils (%) (Auto) % (0.0-2.0) % (0.0-2.0) Differential Total Cells Counted 100 Neutrophils % (Manual) 90 % (45-75) H Lymphocytes % (Manual) 3 % (20-45) L Monocytes % (Manual) 4 % (1-10) Eosinophils % (Manual) 0 % (0-3) Basophils % (Manual) 0 % (0-2) Band Neutrophils 3 % (0-8) Platelet Estimate Decreased L Platelet Morphology Normal Hypochromasia Occasional Poikilocytosis Occasional Anisocytosis 1+ Arterial Blood pH 7.405 (7.350-7.450) Arterial Blood Partial Pressure CO2 34.0 mmHg (35.0-45.0) L Arterial Blood Partial Pressure O2 138.5 mmHg (75.0-100.0) H Arterial Blood HCO3 20.8 mmol/L (22.0-26.0) L Arterial Blood Oxygen Saturation 99.1 % (92.0-98.0) H Arterial Blood Base Excess -3.5 Isidro Test Positive Sodium Level 135 mEQ/L (135-145) Potassium Level 4.3 mEQ/L (3.4-4.9) Chloride Level 102 mEQ/L (98-107) Carbon Dioxide Level 20 mEQ/L (20-30) Anion Gap 13 (5-15) Blood Urea Nitrogen 28 mg/dL (7-23) H Creatinine 1.3 mg/dL (0.5-0.9) H Estimat Glomerular Filtration Rate 51.5 mL/min (>60) Glucose Level 80 mg/dL (74-106) Calcium Level 8.0 mg/dL (8.6-10.2) L Phosphorus Level 4.1 mg/dL (2.5-4.8) Magnesium Level 2.0 mg/dL (1.7-2.5) Total Bilirubin 0.6 mg/dL (0.0-1.2) Aspartate Amino Transf (AST/SGOT) 19 U/L (5-40) Alanine Aminotransferase (ALT/SGPT) 8 U/L (3-33) Alkaline Phosphatase 60 U/L (35-104) Total Protein 4.8 g/dL (6.6-8.7) L Albumin 1.8 g/dL (3.5-5.2) L Globulin 3.0 g/dL Albumin/Globulin Ratio 0.6 (1.0-2.7) L Assessment Post-op Diagnosis stable post op plan wean as tolerated check pathology ZACHERY NOVAK Oct 16, 2016 07:57
[2016-10-16 08:28] LABS: ABG PCO2 32.7 mmHg (35.0-45.0)
[2016-10-16] MEDS: Piperacillin/Tazobactam 3.375 GM in NS 110 ML IVPB SCH ×2 (08:54→21:00)
[2016-10-16] MEDS: Pantoprazole Inj IVP SCH ×2 (08:57→18:24)
--- NOTE | 2016-10-16 10:21 | Pulmonolgy Critical Care Note ---
Critical Care - Asmt/Plan Problems: (1) Septic shock (2) Acute respiratory failure (3) SBO (small bowel obstruction) (4) Metastatic adenocarcinoma (5) Colonic obstruction (6) Sepsis (7) S/P exploratory laparotomy Respiratory: monitor respiratory rate, adjust FIO2, CXR, ABG, weaning trial Renal: F/U I&O, keep IV fluid, check electrolytes Infectious Disease: check cultures, continue antibiotics Gastrointestinal: continue feedings/current rate Endocrine: monitor blood sugar Hematologic: monitor H/H Neurologic: PRN Ativan Affect: PRN ativan Prophylaxis: Protonix Notes Reviewed: cardio, renal, ID Discussed with: nurses, consultants, bilingual patient support caseworkerstaffing branch manager - Objective Last 24 Hour Vital Signs Date Time Temp Pulse Resp B/P Pulse Ox O2 Delivery O2 Flow Rate FiO2 10/16/16 10:00 88 11 109/72 100 Mechanical Ventilator 35 10/16/16 09:30 35 10/16/16 09:00 85 13 107/72 100 Mechanical Ventilator 35 10/16/16 09:00 100 10/16/16 09:00 81 11 35 10/16/16 08:00 97.8 81 18 109/71 100 Mechanical Ventilator 35 10/16/16 08:00 88 10/16/16 08:00 35 10/16/16 07:00 78 14 104/66 100 Mechanical Ventilator 35 10/16/16 06:40 77 14 35 10/16/16 06:00 82 14 110/72 100 Mechanical Ventilator 35 10/16/16 05:16 81 14 35 10/16/16 05:00 80 14 106/67 100 Mechanical Ventilator 35 10/16/16 04:00 77 10/16/16 04:00 98.0 77 14 95/65 100 Mechanical Ventilator 35 10/16/16 04:00 35 10/16/16 03:07 74 14 35 10/16/16 03:00 79 14 92/62 100 Mechanical Ventilator 35 10/16/16 02:00 80 14 102/62 100 Mechanical Ventilator 35 10/16/16 01:12 81 14 35 10/16/16 01:00 79 14 102/62 100 Mechanical Ventilator 35 10/16/16 00:00 80 10/16/16 00:00 35 10/16/16 00:00 98.2 77 14 99/63 100 35 10/15/16 23:00 79 14 111/71 100 35 10/15/16 22:52 80 14 35 10/15/16 22:00 82 14 101/69 100 35 10/15/16 21:00 83 14 102/61 100 35 10/15/16 20:50 86 17 35 10/15/16 20:00 84 14 97/56 100 Mechanical Ventilator 35 10/15/16 20:00 35 10/15/16 20:00 84 10/15/16 19:00 85 14 95/58 100 Mechanical Ventilator 35 10/15/16 18:38 85 19 35 10/15/16 18:30 87 14 105/57 100 Mechanical Ventilator 35 10/15/16 18:00 85 14 110/55 100 Mechanical Ventilator 35 10/15/16 17:30 85 14 96/58 100 Mechanical Ventilator 35 10/15/16 17:00 79 14 35 10/15/16 17:00 85 14 102/58 99 Mechanical Ventilator 35 10/15/16 16:30 85 15 94/56 99 Mechanical Ventilator 35 10/15/16 16:00 35 10/15/16 16:00 86 14 93/55 100 Mechanical Ventilator 35 10/15/16 16:00 84 10/15/16 15:54 87 10/15/16 15:30 90 14 96/58 98 Mechanical Ventilator 35 10/15/16 15:19 82 14 35 10/15/16 15:00 85 11 96/53 99 Mechanical Ventilator 35 10/15/16 14:00 84 12 93/53 100 Mechanical Ventilator 35 10/15/16 13:00 85 10 35 10/15/16 13:00 85 12 91/57 100 Mechanical Ventilator 35 10/15/16 12:00 97.4 85 12 91/54 100 Mechanical Ventilator 35 10/15/16 11:30 35 10/15/16 11:00 88 15 35 10/15/16 11:00 91 15 97/52 100 Mechanical Ventilator 35 Status: awake Condition: critical HEENT: atraumatic Neck: full ROM Lungs: chest wall tender Heart: HR/BP stable, HR/BP unstable, regular Abdomen: non-tender, active bowel sounds Extremities: no C/C/E, edema Decubiti: stage Critical Care - Subjective ICU Day: 5 Intubation Day: 5 Condition: critical EKG Rhythm: Sinus Rhythm FI02: 35 Vent Support Breath Rate: 14 Vent Support Mode: CPAP Vent Tidal Volume: 450 Sputum Amount: Scant PEEP: 5.0 PIP: 20 Fluids: 1/2 NS kcl 20 at 50 cc.hour Tube Feeding Amount: 40 I&O: Intake and Output 10/15/16 10/16/16 19:00 07:00 Intake Total 800 ml 1120.0 ml Output Total 1030 ml 1175 ml Balance -230 ml -55.0 ml Free Water 100 ml IV Total 760 ml 760.0 ml Tube Feeding 40 ml 260 ml Output Urine Total 700 ml 510 ml Drainage Total 160 ml 240 ml Other 170 ml 425 ml # Bowel Movements 3 3 CXR: LL effusion, ET in good position ET-Tube: 6.5 ET Position: 20 Labs: Laboratory Tests Test 10/16/16 04:00 10/16/16 08:18 White Blood Count 9.8 K/UL (4.8-10.8) # Red Blood Count 3.62 M/UL (4.20-5.40) L Hemoglobin 10.2 G/DL (12.0-16.0) #L Hematocrit 31.4 % (37.0-47.0) #L Mean Corpuscular Volume 87 FL (80-99) Mean Corpuscular Hemoglobin 28.2 PG (27.0-31.0) Mean Corpuscular Hemoglobin Concent 32.5 G/DL (32.0-36.0) Red Cell Distribution Width 17.1 % (11.6-14.8) H Platelet Count 147 K/UL (150-450) L Mean Platelet Volume 7.2 FL (6.5-10.1) Neutrophils (%) (Auto) % (45.0-75.0) Lymphocytes (%) (Auto) % (20.0-45.0) Monocytes (%) (Auto) % (1.0-10.0) Eosinophils (%) (Auto) % (0.0-3.0) Basophils (%) (Auto) % (0.0-2.0) Sodium Level 135 mEQ/L (135-145) Potassium Level 4.3 mEQ/L (3.4-4.9) Chloride Level 102 mEQ/L (98-107) Carbon Dioxide Level 20 mEQ/L (20-30) Anion Gap 13 (5-15) Blood Urea Nitrogen 28 mg/dL (7-23) H Creatinine 1.3 mg/dL (0.5-0.9) H Estimat Glomerular Filtration Rate 51.5 mL/min (>60) Glucose Level 80 mg/dL (74-106) Calcium Level 8.0 mg/dL (8.6-10.2) L Phosphorus Level 4.1 mg/dL (2.5-4.8) Magnesium Level 2.0 mg/dL (1.7-2.5) Total Bilirubin 0.6 mg/dL (0.0-1.2) Aspartate Amino Transf (AST/SGOT) 19 U/L (5-40) Alanine Aminotransferase (ALT/SGPT) 8 U/L (3-33) Alkaline Phosphatase 60 U/L (35-104) Total Protein 4.8 g/dL (6.6-8.7) L Albumin 1.8 g/dL (3.5-5.2) L Globulin 3.0 g/dL Albumin/Globulin Ratio 0.6 (1.0-2.7) L Arterial Blood pH 7.368 (7.350-7.450) Arterial Blood Partial Pressure CO2 32.7 mmHg (35.0-45.0) L Arterial Blood Partial Pressure O2 148.8 mmHg (75.0-100.0) H Arterial Blood HCO3 18.4 mmol/L (22.0-26.0) L Arterial Blood Oxygen Saturation 98.3 % (92.0-98.0) H Arterial Blood Base Excess -6.0 Isidro Test N/a APPLE COLON Oct 16, 2016 10:21
--- NOTE | 2016-10-16 10:30 | Diagnostic Imaging Report ---
Indication: DYSPNEA Technique: XRAY CHEST 1 V. Comparison: 10/15/2016 Findings: The cardiomediastinal silhouette is unchanged. Opacification in the retrocardiac region is present. There is blunting of left costophrenic angle. A nasogastric tube is again seen in the stomach. There is a right jugular catheter and endotracheal tube. Impression: Left lower lobe consolidation and/or volume loss with probable left pleural effusion. Cardiomegaly. No significant change from prior examination.
[2016-10-16] MEDS ORDERED: NS 275ml ONE (10:36)
[2016-10-16] MEDS ORDERED: D5 1/2NS 1000ml IV ONE (10:36)
[2016-10-16] MEDS ORDERED: Tubing IV Secondary IV ONE ×2 (10:36→18:06)
[2016-10-16 12:20] LABS: ABG BASE EXCESS -5.9; ABG PCO2 31.2 mmHg (35.0-45.0)
--- NOTE | 2016-10-16 12:36 | General Progress Note ---
Assessment/Plan Status: unchanged Status Narrative Cr 1.3 Assessment/Plan Acute renal failure likely due to septic Shock and Hypotension- - Septic shock - Acute respiratory failure - SBO (small bowel obstruction) - Metastatic adenocarcinoma - Colonic obstruction - Sepsis - S/P exploratory laparotomy - HypoAlbuminemia Plan: Hemodynamic support- ? Improve nutritional state ? TPN ? Monitor renal parameters and urine out put poor prognosis- per orders Subjective ROS Limited/Unobtainable: Yes Allergies: Coded Allergies: No Known Allergies (Unverified , 04/13/15) Objective Last 24 Hour Vital Signs Date Time Temp Pulse Resp B/P Pulse Ox O2 Delivery O2 Flow Rate FiO2 10/16/16 12:00 97.5 93 15 111/77 100 Mechanical Ventilator 35 10/16/16 12:00 93 10/16/16 11:30 110/68 10/16/16 11:00 35 10/16/16 11:00 91 12 110/68 100 Mechanical Ventilator 35 10/16/16 10:30 84 13 35 10/16/16 10:00 88 11 109/72 100 Mechanical Ventilator 35 10/16/16 09:30 35 10/16/16 09:00 85 13 107/72 100 Mechanical Ventilator 35 10/16/16 09:00 100 10/16/16 09:00 81 11 35 10/16/16 08:00 97.8 81 18 109/71 100 Mechanical Ventilator 35 10/16/16 08:00 88 10/16/16 08:00 35 10/16/16 07:00 78 14 104/66 100 Mechanical Ventilator 35 10/16/16 06:40 77 14 35 10/16/16 06:00 82 14 110/72 100 Mechanical Ventilator 35 10/16/16 05:16 81 14 35 10/16/16 05:00 80 14 106/67 100 Mechanical Ventilator 35 10/16/16 04:00 77 10/16/16 04:00 98.0 77 14 95/65 100 Mechanical Ventilator 35 10/16/16 04:00 35 10/16/16 03:07 74 14 35 10/16/16 03:00 79 14 92/62 100 Mechanical Ventilator 35 10/16/16 02:00 80 14 102/62 100 Mechanical Ventilator 35 10/16/16 01:12 81 14 35 10/16/16 01:00 79 14 102/62 100 Mechanical Ventilator 35 10/16/16 00:00 80 10/16/16 00:00 35 10/16/16 00:00 98.2 77 14 99/63 100 35 10/15/16 23:00 79 14 111/71 100 35 10/15/16 22:52 80 14 35 10/15/16 22:00 82 14 101/69 100 35 10/15/16 21:00 83 14 102/61 100 35 10/15/16 20:50 86 17 35 10/15/16 20:00 84 14 97/56 100 Mechanical Ventilator 35 10/15/16 20:00 35 10/15/16 20:00 84 10/15/16 19:00 85 14 95/58 100 Mechanical Ventilator 35 10/15/16 18:38 85 19 35 10/15/16 18:30 87 14 105/57 100 Mechanical Ventilator 35 10/15/16 18:00 85 14 110/55 100 Mechanical Ventilator 35 10/15/16 17:30 85 14 96/58 100 Mechanical Ventilator 35 10/15/16 17:00 79 14 35 10/15/16 17:00 85 14 102/58 99 Mechanical Ventilator 35 10/15/16 16:30 85 15 94/56 99 Mechanical Ventilator 35 10/15/16 16:00 35 10/15/16 16:00 86 14 93/55 100 Mechanical Ventilator 35 10/15/16 16:00 84 10/15/16 15:54 87 10/15/16 15:30 90 14 96/58 98 Mechanical Ventilator 35 10/15/16 15:19 82 14 35 10/15/16 15:00 85 11 96/53 99 Mechanical Ventilator 35 10/15/16 14:00 84 12 93/53 100 Mechanical Ventilator 35 10/15/16 13:00 85 10 35 10/15/16 13:00 85 12 91/57 100 Mechanical Ventilator 35 Intake and Output 10/15/16 10/16/16 18:59 06:59 Intake Total 790 ml 1050.0 ml Output Total 980 ml 1245 ml Balance -190 ml -195.0 ml Free Water 100 ml IV Total 760 ml 710.0 ml Tube Feeding 30 ml 240 ml Output Urine Total 650 ml 580 ml Drainage Total 160 ml 240 ml Other 170 ml 425 ml # Bowel Movements 3 3 Laboratory Tests 10/16/16 04:00: White Blood Count 9.8#, Red Blood Count 3.62L, Hemoglobin 10.2#L, Hematocrit 31.4#L, Mean Corpuscular Volume 87, Mean Corpuscular Hemoglobin 28.2, Mean Corpuscular Hemoglobin Concent 32.5, Red Cell Distribution Width 17.1H, Platelet Count 147L, Mean Platelet Volume 7.2, Neutrophils (%) (Auto) , Lymphocytes (%) (Auto) , Monocytes (%) (Auto) , Eosinophils (%) (Auto) , Basophils (%) (Auto) , Sodium Level 135, Potassium Level 4.3, Chloride Level 102 , Carbon Dioxide Level 20, Anion Gap 13, Blood Urea Nitrogen 28H, Creatinine 1.3H, Estimat Glomerular Filtration Rate 51.5, Glucose Level 80, Calcium Level 8.0L, Phosphorus Level 4.1, Magnesium Level 2.0, Total Bilirubin 0.6, Aspartate Amino Transf (AST/SGOT) 19, Alanine Aminotransferase (ALT/SGPT) 8, Alkaline Phosphatase 60, Total Protein 4.8L, Albumin 1.8L, Globulin 3.0, Albumin/ Globulin Ratio 0.6L 10/16/16 08:18: Arterial Blood pH 7.368, Arterial Blood Partial Pressure CO2 32.7L, Arterial Blood Partial Pressure O2 148.8H, Arterial Blood HCO3 18.4L, Arterial Blood Oxygen Saturation 98.3H, Arterial Blood Base Excess -6.0, Isidro Test N/a 10/16/16 12:08: Arterial Blood pH 7.383, Arterial Blood Partial Pressure CO2 31.2L, Arterial Blood Partial Pressure O2 142.7H, Arterial Blood HCO3 18.2L, Arterial Blood Oxygen Saturation 98.2H, Arterial Blood Base Excess -5.9, Isidro Test N/a Height (Feet): 5 Height (Inches): 1.00 Weight (Pounds): 100 General Appearance: no apparent distress Objective other physical exam not changed RISSA PERDOMO Oct 16, 2016 12:36
[2016-10-17] VITALS (18 sets, daily range): BP systolic 102–148; BP diastolic 50–100
[2016-10-17] MEDS: Pantoprazole Inj IVP SCH ×2 (09:15→17:59)
[2016-10-17] MEDS: Piperacillin/Tazobactam 3.375 GM in NS 110 ML IVPB SCH ×2 (09:16→21:00)
--- NOTE | 2016-10-17 09:54 | Diagnostic Imaging Report ---
Indication: DYSPNEA Technique: XRAY CHEST 1 V Comparison:10/16/2016 Findings: Again noted is cardiomegaly. A right jugular catheter is in the right atrium. Opacification of the left lung base with possible left pleural effusion is again seen. There is atelectasis now present in the right base. The vascularity is prominent. Impression: Cardiomegaly. Left basilar opacification consistent with either volume loss or consolidation. Os of the left pleural effusion. Atelectasis right base. Prominent pulmonary vascularity. The possibility of superimposed congestive heart failure is not excluded.
[2016-10-17 10:35] LABS: MEAN CORPUSCULAR HEMOGLOBIN 27.6 PG (27.0-31.0); MEAN CORPUSCULAR HGB CONC 31.9 G/DL (32.0-36.0); MEAN CORPUSCULAR VOLUME 86 FL (80-99); MEAN PLATELET VOLUME 6.4 FL (6.5-10.1); PLATELET COUNT 199 K/UL (150-450); RED BLOOD COUNT 4.25 M/UL (4.20-5.40); WHITE BLOOD COUNT 8.4 K/UL (4.8-10.8)
[2016-10-17 10:35] LABS: ABG BASE EXCESS -6.8; ABG PCO2 30.4 mmHg (35.0-45.0)
[2016-10-17 10:36] LABS: ABG ALLEN TEST POSITIVE
--- NOTE | 2016-10-17 10:38 | General Progress Note ---
Assessment/Plan Status: stable Assessment/Plan Acute renal failure likely due to septic Shock and Hypotension- - Septic shock - Acute respiratory failure- now extubated since 10/16 - SBO (small bowel obstruction) - Metastatic adenocarcinoma - Colonic obstruction - Sepsis - S/P exploratory laparotomy - HypoAlbuminemia Plan: today's lab pending Hemodynamic support- ? Improve nutritional state ? Monitor renal parameters and urine out put poor prognosis- per orders Subjective ROS Limited/Unobtainable: No Constitutional: Reports: malaise Allergies: Coded Allergies: No Known Allergies (Unverified , 04/13/15) Objective Last 24 Hour Vital Signs Date Time Temp Pulse Resp B/P Pulse Ox O2 Delivery O2 Flow Rate FiO2 10/17/16 10:00 84 19 141/83 100 Nasal Cannula 2.0 10/17/16 09:00 83 19 125/81 99 Nasal Cannula 2.0 10/17/16 08:00 98.2 96 22 139/79 99 Nasal Cannula 2.0 10/17/16 08:00 96 10/17/16 07:00 86 18 133/85 100 Nasal Cannula 2.0 10/17/16 06:00 81 20 133/84 100 Nasal Cannula 2.0 10/17/16 05:00 81 20 130/80 100 Nasal Cannula 2.0 10/17/16 04:00 97.5 81 20 132/72 100 Nasal Cannula 2.0 10/17/16 04:00 87 10/17/16 03:00 82 18 136/84 100 Nasal Cannula 2.0 10/17/16 02:00 89 16 102/50 100 Nasal Cannula 2.0 10/17/16 01:00 89 19 125/65 100 Nasal Cannula 2.0 10/17/16 00:00 87 10/17/16 00:00 97.4 82 20 110/70 100 Nasal Cannula 2.0 10/16/16 23:00 86 16 108/80 100 Nasal Cannula 2.0 10/16/16 22:00 84 20 108/70 100 Nasal Cannula 2.0 10/16/16 21:00 82 18 125/84 100 Nasal Cannula 2.0 10/16/16 20:00 84 10/16/16 20:00 97.7 86 20 102/70 100 Nasal Cannula 2.0 10/16/16 19:00 89 18 112/69 100 Nasal Cannula 2.0 10/16/16 18:00 89 21 113/74 100 Nasal Cannula 2.0 10/16/16 17:00 117 25 116/70 100 Nasal Cannula 2.0 10/16/16 16:00 97.7 103 17 111/71 100 Nasal Cannula 2.0 10/16/16 16:00 103 10/16/16 15:00 98 20 119/93 97 Nasal Cannula 2.0 10/16/16 14:00 2.0 10/16/16 14:00 87 15 115/75 100 Nasal Cannula 2.0 10/16/16 13:36 Nasal Cannula 2.0 28 10/16/16 13:05 85 12 35 10/16/16 13:00 86 13 113/80 100 Mechanical Ventilator 35 10/16/16 12:00 97.5 93 15 111/77 100 Mechanical Ventilator 35 10/16/16 12:00 93 10/16/16 11:30 110/68 10/16/16 11:00 35 10/16/16 11:00 91 12 110/68 100 Mechanical Ventilator 35 Intake and Output 10/16/16 10/17/16 19:00 07:00 Intake Total 860.0 ml 250 ml Output Total 1950 ml 3560 ml Balance -1090.0 ml -3310 ml Intake Oral 200 ml 250 ml Free Water 130 ml IV Total 310.0 ml Tube Feeding 220 ml Output Urine Total 560 ml 560 ml Drainage Total 240 ml 1030 ml Other 1150 ml 1970 ml # Bowel Movements 3 3 Laboratory Tests 10/16/16 12:08: Arterial Blood pH 7.383, Arterial Blood Partial Pressure CO2 31.2L, Arterial Blood Partial Pressure O2 142.7H, Arterial Blood HCO3 18.2L, Arterial Blood Oxygen Saturation 98.2H, Arterial Blood Base Excess -5.9, Isidro Test N/a 10/17/16 09:50: White Blood Count [Pending], Red Blood Count [Pending], Hemoglobin [Pending], Hematocrit [Pending], Mean Corpuscular Volume [Pending], Mean Corpuscular Hemoglobin [Pending], Mean Corpuscular Hemoglobin Concent [Pending], Red Cell Distribution Width [Pending], Platelet Count [Pending], Mean Platelet Volume [ Pending], Neutrophils (%) (Auto) [Pending], Lymphocytes (%) (Auto) [Pending], Monocytes (%) (Auto) [Pending], Eosinophils (%) (Auto) [Pending], Basophils (%) (Auto) [Pending], Sodium Level [Pending], Potassium Level [Pending], Chloride Level [Pending], Carbon Dioxide Level [Pending], Blood Urea Nitrogen [Pending], Creatinine [Pending], Estimat Glomerular Filtration Rate [Pending], Glucose Level [Pending], Calcium Level [Pending], Phosphorus Level [Pending], Magnesium Level [Pending], Total Bilirubin [Pending], Aspartate Amino Transf (AST/SGOT) [ Pending], Alanine Aminotransferase (ALT/SGPT) [Pending], Alkaline Phosphatase [ Pending], Total Protein [Pending], Albumin [Pending], Globulin [Pending] Height (Feet): 5 Height (Inches): 1.00 Weight (Pounds): 100 General Appearance: no apparent distress Cardiovascular: normal rate Respiratory/Chest: decreased breath sounds Abdomen: soft Objective other physical exam not changed RISSA PERDOMO Oct 17, 2016 10:38
--- NOTE | 2016-10-17 10:45 | Pulmonolgy Critical Care Note ---
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, 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, 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 Discussed with: nurses, consultants Critical Care - Objective Last 24 Hour Vital Signs Date Time Temp Pulse Resp B/P Pulse Ox O2 Delivery O2 Flow Rate FiO2 10/17/16 10:00 84 19 141/83 100 Nasal Cannula 2.0 10/17/16 09:00 83 19 125/81 99 Nasal Cannula 2.0 10/17/16 08:00 98.2 96 22 139/79 99 Nasal Cannula 2.0 10/17/16 08:00 96 10/17/16 07:00 86 18 133/85 100 Nasal Cannula 2.0 10/17/16 06:00 81 20 133/84 100 Nasal Cannula 2.0 10/17/16 05:00 81 20 130/80 100 Nasal Cannula 2.0 10/17/16 04:00 97.5 81 20 132/72 100 Nasal Cannula 2.0 10/17/16 04:00 87 10/17/16 03:00 82 18 136/84 100 Nasal Cannula 2.0 10/17/16 02:00 89 16 102/50 100 Nasal Cannula 2.0 10/17/16 01:00 89 19 125/65 100 Nasal Cannula 2.0 10/17/16 00:00 87 10/17/16 00:00 97.4 82 20 110/70 100 Nasal Cannula 2.0 10/16/16 23:00 86 16 108/80 100 Nasal Cannula 2.0 10/16/16 22:00 84 20 108/70 100 Nasal Cannula 2.0 10/16/16 21:00 82 18 125/84 100 Nasal Cannula 2.0 10/16/16 20:00 84 10/16/16 20:00 97.7 86 20 102/70 100 Nasal Cannula 2.0 10/16/16 19:00 89 18 112/69 100 Nasal Cannula 2.0 10/16/16 18:00 89 21 113/74 100 Nasal Cannula 2.0 10/16/16 17:00 117 25 116/70 100 Nasal Cannula 2.0 10/16/16 16:00 97.7 103 17 111/71 100 Nasal Cannula 2.0 10/16/16 16:00 103 10/16/16 15:00 98 20 119/93 97 Nasal Cannula 2.0 10/16/16 14:00 2.0 10/16/16 14:00 87 15 115/75 100 Nasal Cannula 2.0 10/16/16 13:36 Nasal Cannula 2.0 28 10/16/16 13:05 85 12 35 10/16/16 13:00 86 13 113/80 100 Mechanical Ventilator 35 10/16/16 12:00 97.5 93 15 111/77 100 Mechanical Ventilator 35 10/16/16 12:00 93 10/16/16 11:30 110/68 10/16/16 11:00 35 10/16/16 11:00 91 12 110/68 100 Mechanical Ventilator 35 Status: awake Condition: improving HEENT: atraumatic, normocephalic Neck: full ROM Lungs: clear Heart: HR/BP stable, HR/BP unstable Abdomen: soft, non-tender, feeding tube Extremities: no C/C/E Critical Care - Subjective ROS Limited/Unobtainable: No ICU Day: 7 Interval Events: extubated yesterday FI02: 28 Vent Support Breath Rate: 14 Vent Support Mode: CPAP Vent Tidal Volume: 450 Sputum Amount: Scant PEEP: 5.0 PIP: 15 Tube Feeding Amount: 40 I&O: Intake and Output 10/16/16 10/17/16 19:00 07:00 Intake Total 860.0 ml 250 ml Output Total 1950 ml 3560 ml Balance -1090.0 ml -3310 ml Intake Oral 200 ml 250 ml Free Water 130 ml IV Total 310.0 ml Tube Feeding 220 ml Output Urine Total 560 ml 560 ml Drainage Total 240 ml 1030 ml Other 1150 ml 1970 ml # Bowel Movements 3 3 CXR: L effusion ET-Tube: 6.5 ET Position: 20 Labs: Laboratory Tests Test 10/16/16 12:08 10/17/16 09:50 10/17/16 10:15 Arterial Blood pH 7.383 (7.350-7.450) 7.372 (7.350-7.450) Arterial Blood Partial Pressure CO2 31.2 mmHg (35.0-45.0) L 30.4 mmHg (35.0-45.0) L Arterial Blood Partial Pressure O2 142.7 mmHg (75.0-100.0) H 77.2 mmHg (75.0-100.0) Arterial Blood HCO3 18.2 mmol/L (22.0-26.0) L 17.3 mmol/L (22.0-26.0) L Arterial Blood Oxygen Saturation 98.2 % (92.0-98.0) H 94.1 % (92.0-98.0) Arterial Blood Base Excess -5.9 -6.8 Isidro Test N/a Positive White Blood Count 8.4 K/UL (4.8-10.8) Red Blood Count 4.25 M/UL (4.20-5.40) Hemoglobin 11.7 G/DL (12.0-16.0) L Hematocrit 36.7 % (37.0-47.0) L Mean Corpuscular Volume 86 FL (80-99) Mean Corpuscular Hemoglobin 27.6 PG (27.0-31.0) Mean Corpuscular Hemoglobin Concent 31.9 G/DL (32.0-36.0) L Red Cell Distribution Width 17.0 % (11.6-14.8) H Platelet Count 199 K/UL (150-450) Mean Platelet Volume 6.4 FL (6.5-10.1) L Neutrophils (%) (Auto) % (45.0-75.0) Lymphocytes (%) (Auto) % (20.0-45.0) Monocytes (%) (Auto) % (1.0-10.0) Eosinophils (%) (Auto) % (0.0-3.0) Basophils (%) (Auto) % (0.0-2.0) Neutrophils % (Manual) Pending Lymphocytes % (Manual) Pending Platelet Estimate Pending Platelet Morphology Pending Sodium Level Pending Potassium Level Pending Chloride Level Pending Carbon Dioxide Level Pending Blood Urea Nitrogen Pending Creatinine Pending Estimat Glomerular Filtration Rate Pending Glucose Level Pending Calcium Level Pending Phosphorus Level Pending Magnesium Level Pending Total Bilirubin Pending Aspartate Amino Transf (AST/SGOT) Pending Alanine Aminotransferase (ALT/SGPT) Pending Alkaline Phosphatase Pending Total Protein Pending Albumin Pending Globulin Pending APPLE COLON Oct 17, 2016 10:45
[2016-10-17 10:58] LABS: ANISOCYTOSIS 1+; BAND NEUTROPHILS % (MANUAL) 9 % (0-8); BASOPHILS % (MANUAL) 0 % (0-2); EOSINOPHILS % (MANUAL) 0 % (0-3); HYPOCHROMASIA 1+; LYMPHOCYTES % (MANUAL) 3 % (20-45); NEUTROPHILS % (MANUAL) 86 % (45-75); PLATELET ESTIMATE ADEQUATE; PLATELET MORPHOLOGY NORMAL; TOTAL CELLS COUNTED 100
[2016-10-17 11:01] LABS: ALANINE AMINOTRANSFERASE 7 U/L (3-33); ALBUMIN/GLOBULIN RATIO 0.6 (1.0-2.7); ANION GAP 14 (5-15); ASPARTATE AMINO TRANSFERASE 12 U/L (5-40); CALCIUM 8.2 mg/dL (8.6-10.2); CARBON DIOXIDE 19 mEQ/L (20-30); CHLORIDE 107 mEQ/L (98-107); GLOMERULAR FILTRATION RATE > 60 mL/min (>60); HEMOLYSIS 2; MAGNESIUM 1.9 mg/dL (1.7-2.5); PHOSPHORUS 2.7 mg/dL (2.5-4.8); POTASSIUM 3.9 mEQ/L (3.4-4.9); SODIUM 140 mEQ/L (135-145); TOTAL PROTEIN 5.2 g/dL (6.6-8.7)
--- NOTE | 2016-10-17 12:51 | General Progress Note ---
Progress Note Progress Note sp exploratory laparotomy, small bowel resection, ileostomy and mucous fistula for SBO 2o to carcinomatosis extubated. tolerating so far. awake alert, conversant Vital Sign - Last 24 Hours 10/16/16 10/16/16 10/16/16 10/16/16 13:00 13:05 13:36 14:00 Pulse 86 85 87 Resp 13 12 15 B/P 113/80 115/75 Pulse Ox 100 100 O2 Delivery Mechanical Ventilator Nasal Cannula Nasal Cannula O2 Flow Rate 2.0 2.0 FiO2 35 35 28 10/16/16 10/16/16 10/16/16 10/16/16 14:00 15:00 16:00 16:00 Temp 97.7 Pulse 98 103 103 Resp 17 B/P 119/93 111/71 Pulse Ox 97 100 O2 Delivery Nasal Cannula Nasal Cannula O2 Flow Rate 2.0 2.0 2.0 10/16/16 10/16/16 10/16/16 10/16/16 17:00 18:00 19:00 20:00 Temp 97.7 Pulse 117 89 89 86 Resp 25 18 20 B/P 116/70 113/74 112/69 102/70 Pulse Ox 100 100 100 100 O2 Delivery Nasal Cannula Nasal Cannula Nasal Cannula Nasal Cannula O2 Flow Rate 2.0 2.0 2.0 2.0 10/16/16 10/16/16 10/16/16 10/16/16 20:00 21:00 22:00 23:00 Pulse 84 82 84 86 Resp 18 20 16 B/P 125/84 108/70 108/80 Pulse Ox 100 100 100 O2 Delivery Nasal Cannula Nasal Cannula Nasal Cannula O2 Flow Rate 2.0 2.0 2.0 10/17/16 10/17/16 10/17/16 10/17/16 00:00 00:00 01:00 02:00 Temp 97.4 Pulse 82 87 89 89 Resp 20 19 16 B/P 110/70 125/65 102/50 Pulse Ox 100 100 100 O2 Delivery Nasal Cannula Nasal Cannula Nasal Cannula O2 Flow Rate 2.0 2.0 2.0 10/17/16 10/17/16 10/17/16 10/17/16 03:00 04:00 04:00 05:00 Temp 97.5 Pulse 82 87 81 81 Resp 18 20 20 B/P 136/84 132/72 130/80 Pulse Ox 100 100 100 O2 Delivery Nasal Cannula Nasal Cannula Nasal Cannula O2 Flow Rate 2.0 2.0 2.0 10/17/16 10/17/16 10/17/16 10/17/16 06:00 07:00 07:10 07:11 Pulse 81 86 Resp 20 18 B/P 133/84 133/85 Pulse Ox 100 100 98 O2 Delivery Nasal Cannula Nasal Cannula Room Air Room Air O2 Flow Rate 2.0 2.0 FiO2 21 21 10/17/16 10/17/16 10/17/16 10/17/16 08:00 08:00 09:00 10:00 Temp 98.2 Pulse 96 96 83 84 Resp 22 19 19 B/P 139/79 125/81 141/83 Pulse Ox 99 99 100 O2 Delivery Nasal Cannula Nasal Cannula Nasal Cannula O2 Flow Rate 2.0 2.0 2.0 10/17/16 10/17/16 10/17/16 11:00 11:53 11:57 Temp 97.5 Pulse 87 88 87 Resp 20 20 B/P 131/79 133/78 Pulse Ox 99 99 O2 Delivery Nasal Cannula Nasal Cannula O2 Flow Rate 2.0 2.0 Intake and Output 10/16/16 10/16/16 10/17/16 15:00 23:00 07:00 Intake Total 660.0 ml 450 ml Output Total 795 ml 2445 ml 2270 ml Balance -135.0 ml -1995 ml -2270 ml Abdomen soft. wound is clean and dry.Laboratory Tests 10/17/16 09:50: White Blood Count 8.4, Red Blood Count 4.25, Hemoglobin 11.7L, Hematocrit 36.7L , Mean Corpuscular Volume 86, Mean Corpuscular Hemoglobin 27.6, Mean Corpuscular Hemoglobin Concent 31.9L, Red Cell Distribution Width 17.0H, Platelet Count 199, Mean Platelet Volume 6.4L, Neutrophils (%) (Auto) , Lymphocytes (%) (Auto) , Monocytes (%) (Auto) , Eosinophils (%) (Auto) , Basophils (%) (Auto) , Differential Total Cells Counted 100, Neutrophils % ( Manual) 86H, Lymphocytes % (Manual) 3L, Monocytes % (Manual) 2, Eosinophils % ( Manual) 0, Basophils % (Manual) 0, Band Neutrophils 9H, Platelet Estimate Adequate, Platelet Morphology Normal, Hypochromasia 1+, Anisocytosis 1+, Sodium Level 140, Potassium Level 3.9, Chloride Level 107, Carbon Dioxide Level 19L, Anion Gap 14, Blood Urea Nitrogen 28H, Creatinine 1.0H, Estimat Glomerular Filtration Rate > 60, Glucose Level 136H, Calcium Level 8.2L, Phosphorus Level 2.7, Magnesium Level 1.9, Total Bilirubin 0.5, Aspartate Amino Transf (AST/SGOT ) 12, Alanine Aminotransferase (ALT/SGPT) 7, Alkaline Phosphatase 51, Total Protein 5.2L, Albumin 2.0L, Globulin 3.2, Albumin/Globulin Ratio 0.6L 10/17/16 10:15: Arterial Blood pH 7.372, Arterial Blood Partial Pressure CO2 30.4L, Arterial Blood Partial Pressure O2 77.2, Arterial Blood HCO3 17.3L, Arterial Blood Oxygen Saturation 94.1, Arterial Blood Base Excess -6.8, Isidro Test Positive Ostomy funcioning well with bag full of soft stool and air KATE drain will with copious serosanguinous fluid Final pathology still pending progressing well from surgical point of view Out of icu soon ZACHERY NOVAK Oct 17, 2016 12:51
[2016-10-17] MEDS ORDERED: Nitroglycerin Subl 0.4mg tab (Bottle Of 25) SL PRN (19:00)
[2016-10-17] MEDS ORDERED: Morphine Sulfate 2mg/ml Inj IVP PRN (19:53)
[2016-10-17] MEDS: Morphine Sulfate 4mg/ml Inj IVP PRN (20:05)
[2016-10-17] MEDS ORDERED: LORazepam Inj 2mg/ml 1ml IV PRN (22:30)
[2016-10-18] VITALS: BP 143/78
[2016-10-18] MEDS: Morphine Sulfate 4mg/ml Inj IVP PRN ×4 (00:50→21:00)
[2016-10-18 04:00] VITALS: BP 136/86
[2016-10-18 07:20] LABS: MEAN CORPUSCULAR HEMOGLOBIN 28.4 PG (27.0-31.0); MEAN CORPUSCULAR HGB CONC 32.7 G/DL (32.0-36.0); MEAN CORPUSCULAR VOLUME 87 FL (80-99); MEAN PLATELET VOLUME 6.2 FL (6.5-10.1); PLATELET COUNT 200 K/UL (150-450); RED BLOOD COUNT 3.97 M/UL (4.20-5.40); RED CELL DISTRIBUTION WIDTH 16.8 % (11.6-14.8); WHITE BLOOD COUNT 6.1 K/UL (4.8-10.8)
[2016-10-18 07:33] LABS: ALANINE AMINOTRANSFERASE 8 U/L (3-33); ALBUMIN/GLOBULIN RATIO 0.6 (1.0-2.7); ANION GAP 12 (5-15); ASPARTATE AMINO TRANSFERASE 11 U/L (5-40); CALCIUM 8.4 mg/dL (8.6-10.2); CARBON DIOXIDE 21 mEQ/L (20-30); CHLORIDE 109 mEQ/L (98-107); GLOMERULAR FILTRATION RATE > 60 mL/min (>60); HEMOLYSIS 6; MAGNESIUM 1.8 mg/dL (1.7-2.5); PHOSPHORUS 2.4 mg/dL (2.5-4.8); POTASSIUM 4.4 mEQ/L (3.4-4.9); SODIUM 142 mEQ/L (135-145); TOTAL PROTEIN 5.2 g/dL (6.6-8.7)
[2016-10-18 08:04] VITALS: BP 148/67
--- NOTE | 2016-10-18 08:21 | General Surgery Progress Note ---
General Surgery-Progress Note Subjective Procedure Performed sp exploratory laparotomy, small bowel resection, ileostomy and mucous fistula for SBO 2o to carcinomatosis Symptoms: pain same, tolerating diet Additional Comments bello still in place.. on regular diet ileostomy working well Objective Last 24 Hour Vital Signs Date Time Temp Pulse Resp B/P Pulse Ox O2 Delivery O2 Flow Rate FiO2 10/18/16 08:04 97.9 101 21 148/67 95 Nasal Cannula 2.0 101 10/18/16 04:00 97.2 92 18 136/86 100 Nasal Cannula 2.0 10/18/16 00:00 97.7 95 17 143/78 Nasal Cannula 2.0 10/17/16 19:48 99 Nasal Cannula 2.0 28 10/17/16 19:48 Nasal Cannula 2.0 28 10/17/16 18:00 97.7 100 20 148/100 100 Nasal Cannula 2.0 10/17/16 16:00 97.2 88 18 135/88 100 Nasal Cannula 2.0 10/17/16 16:00 89 10/17/16 15:00 91 20 130/78 100 Nasal Cannula 2.0 10/17/16 14:00 89 18 129/84 100 Nasal Cannula 2.0 10/17/16 13:00 89 18 135/84 100 Nasal Cannula 2.0 10/17/16 11:57 97.5 87 20 133/78 99 Nasal Cannula 2.0 10/17/16 11:53 88 10/17/16 11:30 135/88 10/17/16 11:00 87 20 131/79 99 Nasal Cannula 2.0 10/17/16 10:00 84 19 141/83 100 Nasal Cannula 2.0 10/17/16 09:00 83 19 125/81 99 Nasal Cannula 2.0 I&O Intake and Output 10/17/16 10/18/16 19:00 07:00 Intake Total 1350.0 ml 480 ml Output Total 2270 ml 2325 ml Balance -920.0 ml -1845 ml Intake Oral 1240 ml 480 ml IV Total 110.0 ml Output Urine Total 1490 ml 1400 ml Stool Total 500 ml 700 ml Drainage Total 280 ml 225 ml # Bowel Movements 1 1 Wound: clean Drains: other - sander drain still with copious output nut now clear and no longer sanguinous Cardiovascular: RSR Respiratory: clear Abdomen: soft, non-tender Laboratory Tests Test 10/17/16 09:50 10/17/16 10:15 10/18/16 06:10 White Blood Count 8.4 K/UL (4.8-10.8) 6.1 K/UL (4.8-10.8) Red Blood Count 4.25 M/UL (4.20-5.40) 3.97 M/UL (4.20-5.40) L Hemoglobin 11.7 G/DL (12.0-16.0) L 11.3 G/DL (12.0-16.0) L Hematocrit 36.7 % (37.0-47.0) L 34.4 % (37.0-47.0) L Mean Corpuscular Volume 86 FL (80-99) 87 FL (80-99) Mean Corpuscular Hemoglobin 27.6 PG (27.0-31.0) 28.4 PG (27.0-31.0) Mean Corpuscular Hemoglobin Concent 31.9 G/DL (32.0-36.0) L 32.7 G/DL (32.0-36.0) Red Cell Distribution Width 17.0 % (11.6-14.8) H 16.8 % (11.6-14.8) H Platelet Count 199 K/UL (150-450) 200 K/UL (150-450) Mean Platelet Volume 6.4 FL (6.5-10.1) L 6.2 FL (6.5-10.1) L Neutrophils (%) (Auto) % (45.0-75.0) % (45.0-75.0) Lymphocytes (%) (Auto) % (20.0-45.0) % (20.0-45.0) Monocytes (%) (Auto) % (1.0-10.0) % (1.0-10.0) Eosinophils (%) (Auto) % (0.0-3.0) % (0.0-3.0) Basophils (%) (Auto) % (0.0-2.0) % (0.0-2.0) Differential Total Cells Counted 100 Neutrophils % (Manual) 86 % (45-75) H Pending Lymphocytes % (Manual) 3 % (20-45) L Pending Monocytes % (Manual) 2 % (1-10) Eosinophils % (Manual) 0 % (0-3) Basophils % (Manual) 0 % (0-2) Band Neutrophils 9 % (0-8) H Platelet Estimate Adequate Pending Platelet Morphology Normal Pending Hypochromasia 1+ Anisocytosis 1+ Sodium Level 140 mEQ/L (135-145) 142 mEQ/L (135-145) Potassium Level 3.9 mEQ/L (3.4-4.9) 4.4 mEQ/L (3.4-4.9) Chloride Level 107 mEQ/L (98-107) 109 mEQ/L (98-107) H Carbon Dioxide Level 19 mEQ/L (20-30) L 21 mEQ/L (20-30) Anion Gap 14 (5-15) 12 (5-15) Blood Urea Nitrogen 28 mg/dL (7-23) H 20 mg/dL (7-23) Creatinine 1.0 mg/dL (0.5-0.9) H 1.0 mg/dL (0.5-0.9) H Estimat Glomerular Filtration Rate > 60 mL/min (>60) > 60 mL/min (>60) Glucose Level 136 mg/dL (74-106) H 105 mg/dL (74-106) Calcium Level 8.2 mg/dL (8.6-10.2) L 8.4 mg/dL (8.6-10.2) L Phosphorus Level 2.7 mg/dL (2.5-4.8) 2.4 mg/dL (2.5-4.8) L Magnesium Level 1.9 mg/dL (1.7-2.5) 1.8 mg/dL (1.7-2.5) Total Bilirubin 0.5 mg/dL (0.0-1.2) 0.4 mg/dL (0.0-1.2) Aspartate Amino Transf (AST/SGOT) 12 U/L (5-40) 11 U/L (5-40) Alanine Aminotransferase (ALT/SGPT) 7 U/L (3-33) 8 U/L (3-33) Alkaline Phosphatase 51 U/L (35-104) 47 U/L (35-104) Total Protein 5.2 g/dL (6.6-8.7) L 5.2 g/dL (6.6-8.7) L Albumin 2.0 g/dL (3.5-5.2) L 2.0 g/dL (3.5-5.2) L Globulin 3.2 g/dL 3.2 g/dL Albumin/Globulin Ratio 0.6 (1.0-2.7) L 0.6 (1.0-2.7) L Arterial Blood pH 7.372 (7.350-7.450) Arterial Blood Partial Pressure CO2 30.4 mmHg (35.0-45.0) L Arterial Blood Partial Pressure O2 77.2 mmHg (75.0-100.0) Arterial Blood HCO3 17.3 mmol/L (22.0-26.0) L Arterial Blood Oxygen Saturation 94.1 % (92.0-98.0) Arterial Blood Base Excess -6.8 Isidro Test Positive Prothrombin Time 10.0 SEC (9.30-11.50) Prothromb Time International Ratio 1.0 (0.9-1.1) Activated Partial Thromboplast Time 28 SEC (23-33) Assessment Post-op Diagnosis stable post op plan wean as tolerated Additional Comments will [facility] path. oncology consult ZACHERY NOVAK Oct 18, 2016 08:21
[2016-10-18] MEDS: Piperacillin/Tazobactam 3.375 GM in NS 110 ML IVPB SCH ×2 (08:42→21:08)
[2016-10-18 10:20] LABS: BAND NEUTROPHILS % (MANUAL) 2 % (0-8); BASOPHILS % (MANUAL) 0 % (0-2); EOSINOPHILS % (MANUAL) 0 % (0-3); LYMPHOCYTES % (MANUAL) 10 % (20-45); NEUTROPHILS % (MANUAL) 84 % (45-75); PLATELET ESTIMATE ADEQUATE; PLATELET MORPHOLOGY NORMAL; TOTAL CELLS COUNTED 100
[2016-10-18 10:22] LABS: ANISOCYTOSIS 1+
[2016-10-18 12:00] VITALS: BP 168/76
--- NOTE | 2016-10-18 13:15 | GI Progress Note ---
Assessment/Plan Problems: (1) Dilated bowel ICD Codes: K59.3 - Megacolon, not elsewhere classified SNOMED: 31161171 (2) Abdominal pain ICD Codes: R10.9 - Abdominal pain SNOMED: 78449813 (3) Anemia ICD Codes: D64.9 - Anemia SNOMED: 199099471 (4) SBO (small bowel obstruction) ICD Codes: K56.69 - SBO (small bowel obstruction) SNOMED: 710446441 (5) Metastatic adenocarcinoma ICD Codes: C79.9 - Secondary malignant neoplasm of unspecified site SNOMED: 7817114, 848526259 Status: stable, progressing Status Narrative Discussed with Dr. Valdez. Assessment/Plan s/p ex lap, fu surgical recs lipase unremarkable per surgery >> large hard non-mobile completely obstructing extrinsic tumor maintain NPO + IVFs ileostomy draining well ppi fu labs Subjective Subjective limited Objective Last 24 Hour Vital Signs Date Time Temp Pulse Resp B/P Pulse Ox O2 Delivery O2 Flow Rate FiO2 10/18/16 12:00 97.7 98 20 168/76 97 Nasal Cannula 2.0 98 10/18/16 09:12 97.9 10/18/16 08:04 97.9 101 21 148/67 95 Nasal Cannula 2.0 101 10/18/16 04:00 97.2 92 18 136/86 100 Nasal Cannula 2.0 10/18/16 00:00 97.7 95 17 143/78 Nasal Cannula 2.0 10/17/16 19:48 99 Nasal Cannula 2.0 28 10/17/16 19:48 Nasal Cannula 2.0 28 10/17/16 18:00 97.7 100 20 148/100 100 Nasal Cannula 2.0 10/17/16 16:00 97.2 88 18 135/88 100 Nasal Cannula 2.0 10/17/16 16:00 89 10/17/16 15:00 91 20 130/78 100 Nasal Cannula 2.0 10/17/16 14:00 89 18 129/84 100 Nasal Cannula 2.0 Intake and Output 10/17/16 10/18/16 19:00 07:00 Intake Total 1350.0 ml 680 ml Output Total 2270 ml 2325 ml Balance -920.0 ml -1645 ml Intake Oral 1240 ml 680 ml IV Total 110.0 ml Output Urine Total 1490 ml 1400 ml Stool Total 500 ml 700 ml Drainage Total 280 ml 225 ml # Bowel Movements 1 1 Laboratory Tests Test 10/18/16 06:10 White Blood Count 6.1 K/UL (4.8-10.8) Red Blood Count 3.97 M/UL (4.20-5.40) L Hemoglobin 11.3 G/DL (12.0-16.0) L Hematocrit 34.4 % (37.0-47.0) L Mean Corpuscular Volume 87 FL (80-99) Mean Corpuscular Hemoglobin 28.4 PG (27.0-31.0) Mean Corpuscular Hemoglobin Concent 32.7 G/DL (32.0-36.0) Red Cell Distribution Width 16.8 % (11.6-14.8) H Platelet Count 200 K/UL (150-450) Mean Platelet Volume 6.2 FL (6.5-10.1) L Neutrophils (%) (Auto) % (45.0-75.0) Lymphocytes (%) (Auto) % (20.0-45.0) Monocytes (%) (Auto) % (1.0-10.0) Eosinophils (%) (Auto) % (0.0-3.0) Basophils (%) (Auto) % (0.0-2.0) Differential Total Cells Counted 100 Neutrophils % (Manual) 84 % (45-75) H Lymphocytes % (Manual) 10 % (20-45) L Monocytes % (Manual) 4 % (1-10) Eosinophils % (Manual) 0 % (0-3) Basophils % (Manual) 0 % (0-2) Band Neutrophils 2 % (0-8) Platelet Estimate Adequate Platelet Morphology Normal Anisocytosis 1+ Prothrombin Time 10.0 SEC (9.30-11.50) Prothromb Time International Ratio 1.0 (0.9-1.1) Activated Partial Thromboplast Time 28 SEC (23-33) Sodium Level 142 mEQ/L (135-145) Potassium Level 4.4 mEQ/L (3.4-4.9) Chloride Level 109 mEQ/L (98-107) H Carbon Dioxide Level 21 mEQ/L (20-30) Anion Gap 12 (5-15) Blood Urea Nitrogen 20 mg/dL (7-23) Creatinine 1.0 mg/dL (0.5-0.9) H Estimat Glomerular Filtration Rate > 60 mL/min (>60) Glucose Level 105 mg/dL (74-106) Calcium Level 8.4 mg/dL (8.6-10.2) L Phosphorus Level 2.4 mg/dL (2.5-4.8) L Magnesium Level 1.8 mg/dL (1.7-2.5) Total Bilirubin 0.4 mg/dL (0.0-1.2) Aspartate Amino Transf (AST/SGOT) 11 U/L (5-40) Alanine Aminotransferase (ALT/SGPT) 8 U/L (3-33) Alkaline Phosphatase 47 U/L (35-104) Total Protein 5.2 g/dL (6.6-8.7) L Albumin 2.0 g/dL (3.5-5.2) L Globulin 3.2 g/dL Albumin/Globulin Ratio 0.6 (1.0-2.7) L Height (Feet): 5 Height (Inches): 1.00 Weight (Pounds): 100 General Appearance: no apparent distress, alert Cardiovascular: normal rate Respiratory/Chest: normal breath sounds Abdominal Exam: normal bowel sounds, non tender, soft, other - illeostomy Objective POSTOPERATIVE DIAGNOSES: 1. Complete bowel obstruction caused by large cervical cancer. 2. A small perforation of the distal terminal ileum. OPERATION PERFORMED: 1. Exploratory laparotomy. 2. Small bowel resection. 3. Creation of end ileostomy. 4. Creation of mucous fistula. 5. Lysis of adhesions. Kym Javier N.P. Oct 18, 2016 13:15
[2016-10-18] MEDS ORDERED: Sodium Phosphate 30 MM in NS 275 ML IVPB ONE ×2 (14:30→19:00)
--- NOTE | 2016-10-18 15:38 | General Progress Note ---
Assessment/Plan Status: stable Assessment/Plan Acute renal failure likely due to septic Shock and Hypotension- - Septic shock - Acute respiratory failure- now extubated since 10/16 - SBO (small bowel obstruction) - Metastatic adenocarcinoma - Colonic obstruction - Sepsis - S/P exploratory laparotomy - HypoAlbuminemia Plan: today's lab Ok Hemodynamic support- ? Improve nutritional state ? Monitor renal parameters and urine out put poor prognosis- per orders Subjective ROS Limited/Unobtainable: No Constitutional: Reports: malaise, weakness Allergies: Coded Allergies: No Known Allergies (Unverified , 04/13/15) Objective Last 24 Hour Vital Signs Date Time Temp Pulse Resp B/P Pulse Ox O2 Delivery O2 Flow Rate FiO2 10/18/16 13:45 97.7 10/18/16 12:00 97.7 98 20 168/76 97 Nasal Cannula 2.0 98 10/18/16 08:04 97.9 101 21 148/67 95 Nasal Cannula 2.0 101 10/18/16 04:00 97.2 92 18 136/86 100 Nasal Cannula 2.0 10/18/16 00:00 97.7 95 17 143/78 Nasal Cannula 2.0 10/17/16 19:48 99 Nasal Cannula 2.0 28 10/17/16 19:48 Nasal Cannula 2.0 28 10/17/16 18:00 97.7 100 20 148/100 100 Nasal Cannula 2.0 10/17/16 16:00 97.2 88 18 135/88 100 Nasal Cannula 2.0 10/17/16 16:00 89 Intake and Output 10/17/16 10/18/16 19:00 07:00 Intake Total 1350.0 ml 680 ml Output Total 2270 ml 2325 ml Balance -920.0 ml -1645 ml Intake Oral 1240 ml 680 ml IV Total 110.0 ml Output Urine Total 1490 ml 1400 ml Stool Total 500 ml 700 ml Drainage Total 280 ml 225 ml # Bowel Movements 1 1 Laboratory Tests 10/18/16 06:10: White Blood Count 6.1, Red Blood Count 3.97L, Hemoglobin 11.3L, Hematocrit 34.4L , Mean Corpuscular Volume 87, Mean Corpuscular Hemoglobin 28.4, Mean Corpuscular Hemoglobin Concent 32.7, Red Cell Distribution Width 16.8H, Platelet Count 200, Mean Platelet Volume 6.2L, Neutrophils (%) (Auto) , Lymphocytes (%) (Auto) , Monocytes (%) (Auto) , Eosinophils (%) (Auto) , Basophils (%) (Auto) , Differential Total Cells Counted 100, Neutrophils % ( Manual) 84H, Lymphocytes % (Manual) 10L, Monocytes % (Manual) 4, Eosinophils % ( Manual) 0, Basophils % (Manual) 0, Band Neutrophils 2, Platelet Estimate Adequate, Platelet Morphology Normal, Anisocytosis 1+, Prothrombin Time 10.0, Prothromb Time International Ratio 1.0, Activated Partial Thromboplast Time 28, Sodium Level 142, Potassium Level 4.4, Chloride Level 109H, Carbon Dioxide Level 21, Anion Gap 12, Blood Urea Nitrogen 20, Creatinine 1.0H, Estimat Glomerular Filtration Rate > 60, Glucose Level 105, Calcium Level 8.4L, Phosphorus Level 2.4L, Magnesium Level 1.8, Total Bilirubin 0.4, Aspartate Amino Transf (AST/SGOT) 11, Alanine Aminotransferase (ALT/SGPT) 8, Alkaline Phosphatase 47, Total Protein 5.2L, Albumin 2.0L, Globulin 3.2, Albumin/ Globulin Ratio 0.6L Height (Feet): 5 Height (Inches): 1.00 Weight (Pounds): 100 General Appearance: no apparent distress Objective other physical exam not changed RISSA PERDOMO Oct 18, 2016 15:38
[2016-10-18 16:00] VITALS: BP 142/92
--- NOTE | 2016-10-18 17:37 | Pulmonology Progress Note ---
Assessment/Plan Problems: (1) SBO (small bowel obstruction) (2) Metastatic adenocarcinoma (3) Colonic obstruction (4) Abdominal distension Assessment/Plan tolerating extubation IV fluids IV antibiotics dc planning. Subjective ROS Limited/Unobtainable: No Interval Events: no new complains Allergies: Coded Allergies: No Known Allergies (Unverified , 04/13/15) Objective Last 24 Hour Vital Signs Date Time Temp Pulse Resp B/P Pulse Ox O2 Delivery O2 Flow Rate FiO2 10/18/16 16:00 96.9 102 18 142/92 97 Nasal Cannula 3.0 10/18/16 13:45 97.7 10/18/16 12:00 97.7 98 20 168/76 97 Nasal Cannula 2.0 98 10/18/16 08:04 97.9 101 21 148/67 95 Nasal Cannula 2.0 101 10/18/16 04:00 97.2 92 18 136/86 100 Nasal Cannula 2.0 10/18/16 00:00 97.7 95 17 143/78 Nasal Cannula 2.0 10/17/16 19:48 99 Nasal Cannula 2.0 28 10/17/16 19:48 Nasal Cannula 2.0 28 10/17/16 18:00 97.7 100 20 148/100 100 Nasal Cannula 2.0 Intake and Output 10/17/16 10/18/16 19:00 07:00 Intake Total 1350.0 ml 680 ml Output Total 2270 ml 2325 ml Balance -920.0 ml -1645 ml Intake Oral 1240 ml 680 ml IV Total 110.0 ml Output Urine Total 1490 ml 1400 ml Stool Total 500 ml 700 ml Drainage Total 280 ml 225 ml # Bowel Movements 1 1 General Appearance: cachetic HEENT: normocephalic, atraumatic Respiratory/Chest: chest wall non-tender, lungs clear Cardiovascular: normal peripheral pulses, normal rate, regular rhythm Abdomen: normal bowel sounds, soft, non tender, other - colostomy bag in place Genitourinary: normal external genitalia Skin: no rash 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 Laboratory Tests 10/18/16 06:10: White Blood Count 6.1, Red Blood Count 3.97L, Hemoglobin 11.3L, Hematocrit 34.4L , Mean Corpuscular Volume 87, Mean Corpuscular Hemoglobin 28.4, Mean Corpuscular Hemoglobin Concent 32.7, Red Cell Distribution Width 16.8H, Platelet Count 200, Mean Platelet Volume 6.2L, Neutrophils (%) (Auto) , Lymphocytes (%) (Auto) , Monocytes (%) (Auto) , Eosinophils (%) (Auto) , Basophils (%) (Auto) , Differential Total Cells Counted 100, Neutrophils % ( Manual) 84H, Lymphocytes % (Manual) 10L, Monocytes % (Manual) 4, Eosinophils % ( Manual) 0, Basophils % (Manual) 0, Band Neutrophils 2, Platelet Estimate Adequate, Platelet Morphology Normal, Anisocytosis 1+, Prothrombin Time 10.0, Prothromb Time International Ratio 1.0, Activated Partial Thromboplast Time 28, Sodium Level 142, Potassium Level 4.4, Chloride Level 109H, Carbon Dioxide Level 21, Anion Gap 12, Blood Urea Nitrogen 20, Creatinine 1.0H, Estimat Glomerular Filtration Rate > 60, Glucose Level 105, Calcium Level 8.4L, Phosphorus Level 2.4L, Magnesium Level 1.8, Total Bilirubin 0.4, Aspartate Amino Transf (AST/SGOT) 11, Alanine Aminotransferase (ALT/SGPT) 8, Alkaline Phosphatase 47, Total Protein 5.2L, Albumin 2.0L, Globulin 3.2, Albumin/ Globulin Ratio 0.6L Current Medications Medications (Trade) Dose Ordered Sig/Renay Route PRN Reason Start Time Stop Time Status Last Admin Dose Admin Acetaminophen (Tylenol) 650 mg Q4H PRN ORAL fever 10/17/16 21:00 11/16/16 20:59 Dextrose (Dextrose 50%) STAT PRN IV Hypoglycemia 10/17/16 21:00 11/16/16 20:59 Lorazepam (Ativan 2mg/ml 1ml) 2 mg Q4H PRN IV For Anxiety 10/17/16 22:30 10/24/16 22:29 Morphine Sulfate (Morphine Sulfate) 2 mg Q4H PRN IVP Moderate Pain (Pain Scale 4-6) 10/17/16 19:53 10/24/16 19:52 Morphine Sulfate (Morphine Sulfate) 4 mg Q4H PRN IVP Severe Pain (Pain Scale 7-10) 10/17/16 19:53 10/24/16 19:52 10/18/16 13:15 Nitroglycerin (Ntg) 0.4 mg Q5M X 3 DOSES PRN SL Prn Chest Pain 10/17/16 19:00 11/16/16 18:59 Ondansetron HCl (Zofran) 4 mg Q6H PRN IVP Nausea & Vomiting 10/17/16 21:00 11/16/16 20:59 Piperacillin Sod/ Tazobactam Sod/ Sodium Chloride (Zosyn/Sodium Chloride) 110 ml @ 27.5 mls/hr Q12HR IVPB 10/17/16 21:00 10/20/16 20:59 10/18/16 08:42 Sodium Phosphate/ Sodium Chloride (NaPO4/Sodium Chloride) 285 ml @ 47.5 mls/hr ONCE ONCE IVPB 10/18/16 14:30 10/18/16 20:29 Temazepam 15 mg 15 mg HSPRN PRN ORAL Insomnia 10/17/16 21:00 10/24/16 20:59 APPLE COLON Oct 18, 2016 17:37
[2016-10-18 19:00] VITALS: BP 140/80
[2016-10-19] VITALS: BP 135/86
[2016-10-19 04:00] VITALS: BP 153/55
[2016-10-19 08:00] VITALS: BP 139/90
[2016-10-19 08:00] LABS: MEAN CORPUSCULAR HEMOGLOBIN 27.6 PG (27.0-31.0); MEAN CORPUSCULAR HGB CONC 31.6 G/DL (32.0-36.0); MEAN CORPUSCULAR VOLUME 88 FL (80-99); MEAN PLATELET VOLUME 6.3 FL (6.5-10.1); PLATELET COUNT 188 K/UL (150-450); RED BLOOD COUNT 3.98 M/UL (4.20-5.40); RED CELL DISTRIBUTION WIDTH 17.1 % (11.6-14.8); WHITE BLOOD COUNT 7.4 K/UL (4.8-10.8)
[2016-10-19 08:09] LABS: ALANINE AMINOTRANSFERASE 7 U/L (3-33); ALBUMIN/GLOBULIN RATIO 0.6 (1.0-2.7); ANION GAP 14 (5-15); ASPARTATE AMINO TRANSFERASE 10 U/L (5-40); CALCIUM 8.2 mg/dL (8.6-10.2); CARBON DIOXIDE 21 mEQ/L (20-30); CHLORIDE 108 mEQ/L (98-107); CREATININE 0.8 mg/dL (0.5-0.9); GLOMERULAR FILTRATION RATE > 60 mL/min (>60); HEMOLYSIS 3; PHOSPHORUS 3.1 mg/dL (2.5-4.8); POTASSIUM 4.6 mEQ/L (3.4-4.9); SODIUM 143 mEQ/L (135-145); TOTAL PROTEIN 5.5 g/dL (6.6-8.7)
[2016-10-19] MEDS: Piperacillin/Tazobactam 3.375 GM in NS 110 ML IVPB SCH ×2 (08:37→21:54)
[2016-10-19] MEDS: Morphine Sulfate 4mg/ml Inj IVP PRN ×3 (08:38→21:54)
--- NOTE | 2016-10-19 09:49 | General Surgery Progress Note ---
General Surgery-Progress Note Subjective Procedure Performed exploratory laparotomy, lysis of adhesions, ileostomy, colostomy. (Severe metastatic cervical CA in entire pelvis with SBO, large bowel obstruction) Symptoms: improved Additional Comments tolerating diet Objective Last 24 Hour Vital Signs Date Time Temp Pulse Resp B/P Pulse Ox O2 Delivery O2 Flow Rate FiO2 10/19/16 04:00 97.3 95 20 153/55 95 10/19/16 00:00 97.7 82 20 135/86 95 Nasal Cannula 2.0 10/18/16 21:30 97.8 10/18/16 20:48 Nasal Cannula 2.0 28 10/18/16 20:48 99 Nasal Cannula 2.0 28 10/18/16 19:00 97.8 99 18 140/80 98 Nasal Cannula 3.0 10/18/16 16:00 96.9 102 18 142/92 97 Nasal Cannula 3.0 10/18/16 12:00 97.7 98 20 168/76 97 Nasal Cannula 2.0 98 I&O Intake and Output 10/18/16 10/19/16 19:00 07:00 Intake Total 1135.0 ml 980 ml Output Total 1630 ml 980 ml Balance -495.0 ml 0 ml Intake Oral 1080 ml 980 ml IV Total 55.0 ml Output Urine Total 700 ml Stool Total 850 ml 850 ml Drainage Total 40 ml 130 ml Other 40 ml # Voids 2 6 Wound: clean Drains: sander - still moderate drainage. serous Cardiovascular: RSR Respiratory: clear Abdomen: soft, other - ileostomy-colostomy OK, normal effluent. Extremities: no edema Laboratory Tests Test 10/19/16 06:50 White Blood Count 7.4 K/UL (4.8-10.8) Red Blood Count 3.98 M/UL (4.20-5.40) L Hemoglobin 11.0 G/DL (12.0-16.0) L Hematocrit 34.9 % (37.0-47.0) L Mean Corpuscular Volume 88 FL (80-99) Mean Corpuscular Hemoglobin 27.6 PG (27.0-31.0) Mean Corpuscular Hemoglobin Concent 31.6 G/DL (32.0-36.0) L Red Cell Distribution Width 17.1 % (11.6-14.8) H Platelet Count 188 K/UL (150-450) Mean Platelet Volume 6.3 FL (6.5-10.1) L Neutrophils (%) (Auto) % (45.0-75.0) Lymphocytes (%) (Auto) % (20.0-45.0) Monocytes (%) (Auto) % (1.0-10.0) Eosinophils (%) (Auto) % (0.0-3.0) Basophils (%) (Auto) % (0.0-2.0) Neutrophils % (Manual) Pending Lymphocytes % (Manual) Pending Platelet Estimate Pending Platelet Morphology Pending Sodium Level 143 mEQ/L (135-145) Potassium Level 4.6 mEQ/L (3.4-4.9) Chloride Level 108 mEQ/L (98-107) H Carbon Dioxide Level 21 mEQ/L (20-30) Anion Gap 14 (5-15) Blood Urea Nitrogen 16 mg/dL (7-23) Creatinine 0.8 mg/dL (0.5-0.9) Estimat Glomerular Filtration Rate > 60 mL/min (>60) Glucose Level 100 mg/dL (74-106) Calcium Level 8.2 mg/dL (8.6-10.2) L Phosphorus Level 3.1 mg/dL (2.5-4.8) Total Bilirubin 0.3 mg/dL (0.0-1.2) Aspartate Amino Transf (AST/SGOT) 10 U/L (5-40) Alanine Aminotransferase (ALT/SGPT) 7 U/L (3-33) Alkaline Phosphatase 42 U/L (35-104) Total Protein 5.5 g/dL (6.6-8.7) L Albumin 2.2 g/dL (3.5-5.2) L Globulin 3.3 g/dL Albumin/Globulin Ratio 0.6 (1.0-2.7) L Additional Comments Stable s/p exploratory laparotomy for severe metastatic cervical CA disease with large bowel obstruction., S/P ileostomy-cecostomy Assessment Additional Comments Continue as is. Placement will be difficult. J CARLOS BAER Oct 19, 2016 09:49
--- NOTE | 2016-10-19 10:34 | GI Progress Note ---
Assessment/Plan Problems: (1) Dilated bowel ICD Codes: K59.3 - Megacolon, not elsewhere classified SNOMED: 14662809 (2) Abdominal pain ICD Codes: R10.9 - Abdominal pain SNOMED: 38839699 (3) Anemia ICD Codes: D64.9 - Anemia SNOMED: 244287554 (4) SBO (small bowel obstruction) ICD Codes: K56.69 - SBO (small bowel obstruction) SNOMED: 445686034 (5) Metastatic adenocarcinoma ICD Codes: C79.9 - Secondary malignant neoplasm of unspecified site SNOMED: 4958594, 357656186 Status: stable Status Narrative Discussed with Dr. Valdez. Assessment/Plan s/p ex lap, fu surgical recs lipase unremarkable per surgery >> large hard non-mobile completely obstructing extrinsic tumor monitor H&H, transfuse prn low residual diet, tolerating ileostomy draining well ppi fu labs Subjective Subjective 9/10 abdominal pain Objective Last 24 Hour Vital Signs Date Time Temp Pulse Resp B/P Pulse Ox O2 Delivery O2 Flow Rate FiO2 10/19/16 08:00 98.2 102 20 139/90 100 Nasal Cannula 2.0 10/19/16 04:00 97.3 95 20 153/55 95 10/19/16 00:00 97.7 82 20 135/86 95 Nasal Cannula 2.0 10/18/16 21:30 97.8 10/18/16 20:48 Nasal Cannula 2.0 28 10/18/16 20:48 99 Nasal Cannula 2.0 28 10/18/16 19:00 97.8 99 18 140/80 98 Nasal Cannula 3.0 10/18/16 16:00 96.9 102 18 142/92 97 Nasal Cannula 3.0 10/18/16 12:00 97.7 98 20 168/76 97 Nasal Cannula 2.0 98 Intake and Output 10/18/16 10/19/16 19:00 07:00 Intake Total 1135.0 ml 980 ml Output Total 1630 ml 980 ml Balance -495.0 ml 0 ml Intake Oral 1080 ml 980 ml IV Total 55.0 ml Output Urine Total 700 ml Stool Total 850 ml 850 ml Drainage Total 40 ml 130 ml Other 40 ml # Voids 2 6 Laboratory Tests Test 10/19/16 06:50 White Blood Count 7.4 K/UL (4.8-10.8) Red Blood Count 3.98 M/UL (4.20-5.40) L Hemoglobin 11.0 G/DL (12.0-16.0) L Hematocrit 34.9 % (37.0-47.0) L Mean Corpuscular Volume 88 FL (80-99) Mean Corpuscular Hemoglobin 27.6 PG (27.0-31.0) Mean Corpuscular Hemoglobin Concent 31.6 G/DL (32.0-36.0) L Red Cell Distribution Width 17.1 % (11.6-14.8) H Platelet Count 188 K/UL (150-450) Mean Platelet Volume 6.3 FL (6.5-10.1) L Neutrophils (%) (Auto) % (45.0-75.0) Lymphocytes (%) (Auto) % (20.0-45.0) Monocytes (%) (Auto) % (1.0-10.0) Eosinophils (%) (Auto) % (0.0-3.0) Basophils (%) (Auto) % (0.0-2.0) Neutrophils % (Manual) Pending Lymphocytes % (Manual) Pending Platelet Estimate Pending Platelet Morphology Pending Sodium Level 143 mEQ/L (135-145) Potassium Level 4.6 mEQ/L (3.4-4.9) Chloride Level 108 mEQ/L (98-107) H Carbon Dioxide Level 21 mEQ/L (20-30) Anion Gap 14 (5-15) Blood Urea Nitrogen 16 mg/dL (7-23) Creatinine 0.8 mg/dL (0.5-0.9) Estimat Glomerular Filtration Rate > 60 mL/min (>60) Glucose Level 100 mg/dL (74-106) Calcium Level 8.2 mg/dL (8.6-10.2) L Phosphorus Level 3.1 mg/dL (2.5-4.8) Total Bilirubin 0.3 mg/dL (0.0-1.2) Aspartate Amino Transf (AST/SGOT) 10 U/L (5-40) Alanine Aminotransferase (ALT/SGPT) 7 U/L (3-33) Alkaline Phosphatase 42 U/L (35-104) Total Protein 5.5 g/dL (6.6-8.7) L Albumin 2.2 g/dL (3.5-5.2) L Globulin 3.3 g/dL Albumin/Globulin Ratio 0.6 (1.0-2.7) L Height (Feet): 5 Height (Inches): 1.00 Weight (Pounds): 100 General Appearance: no apparent distress, alert, thin Cardiovascular: normal rate Respiratory/Chest: other - 2LNC Abdominal Exam: other - illeostomy Objective POSTOPERATIVE DIAGNOSES: 1. Complete bowel obstruction caused by large cervical cancer. 2. A small perforation of the distal terminal ileum. OPERATION PERFORMED: 1. Exploratory laparotomy. 2. Small bowel resection. 3. Creation of end ileostomy. 4. Creation of mucous fistula. 5. Lysis of adhesions. Kym Javier N.P. Oct 19, 2016 10:34
[2016-10-19 12:00] VITALS: BP 133/78
--- NOTE | 2016-10-19 12:15 | General Progress Note ---
Assessment/Plan Status: stable - from renal stand Status Narrative no change in physical exam Assessment/Plan Acute renal failure likely due to septic Shock and Hypotension- - Septic shock - Acute respiratory failure- now extubated since 10/16 - SBO (small bowel obstruction) - Metastatic adenocarcinoma - Colonic obstruction - Sepsis - S/P exploratory laparotomy - HypoAlbuminemia Plan: today's lab Ok Hemodynamic support- ? Improve nutritional state ? Monitor renal parameters and urine out put Per consultants Subjective ROS Limited/Unobtainable: No Constitutional: Reports: malaise Allergies: Coded Allergies: No Known Allergies (Unverified , 04/13/15) Objective Last 24 Hour Vital Signs Date Time Temp Pulse Resp B/P Pulse Ox O2 Delivery O2 Flow Rate FiO2 10/19/16 08:00 98.2 102 20 139/90 100 Nasal Cannula 2.0 10/19/16 04:00 97.3 95 20 153/55 95 10/19/16 00:00 97.7 82 20 135/86 95 Nasal Cannula 2.0 10/18/16 21:30 97.8 10/18/16 20:48 Nasal Cannula 2.0 28 10/18/16 20:48 99 Nasal Cannula 2.0 28 10/18/16 19:00 97.8 99 18 140/80 98 Nasal Cannula 3.0 10/18/16 16:00 96.9 102 18 142/92 97 Nasal Cannula 3.0 Intake and Output 10/18/16 10/19/16 19:00 07:00 Intake Total 1135.0 ml 980 ml Output Total 1630 ml 980 ml Balance -495.0 ml 0 ml Intake Oral 1080 ml 980 ml IV Total 55.0 ml Output Urine Total 700 ml Stool Total 850 ml 850 ml Drainage Total 40 ml 130 ml Other 40 ml # Voids 2 6 Laboratory Tests 10/19/16 06:50: White Blood Count 7.4, Red Blood Count 3.98L, Hemoglobin 11.0L, Hematocrit 34.9L , Mean Corpuscular Volume 88, Mean Corpuscular Hemoglobin 27.6, Mean Corpuscular Hemoglobin Concent 31.6L, Red Cell Distribution Width 17.1H, Platelet Count 188, Mean Platelet Volume 6.3L, Neutrophils (%) (Auto) , Lymphocytes (%) (Auto) , Monocytes (%) (Auto) , Eosinophils (%) (Auto) , Basophils (%) (Auto) , Neutrophils % (Manual) [Pending], Lymphocytes % (Manual) [Pending], Platelet Estimate [Pending], Platelet Morphology [Pending], Sodium Level 143, Potassium Level 4.6, Chloride Level 108H, Carbon Dioxide Level 21, Anion Gap 14, Blood Urea Nitrogen 16, Creatinine 0.8, Estimat Glomerular Filtration Rate > 60, Glucose Level 100, Calcium Level 8.2L, Phosphorus Level 3.1, Total Bilirubin 0.3, Aspartate Amino Transf (AST/SGOT) 10, Alanine Aminotransferase (ALT/SGPT) 7, Alkaline Phosphatase 42, Total Protein 5.5L, Albumin 2.2L, Globulin 3.3, Albumin/Globulin Ratio 0.6L Height (Feet): 5 Height (Inches): 1.00 Weight (Pounds): 100 General Appearance: no apparent distress Objective other physical exam not changed RISSA PERDOMO 14, 2017 12:15
[2016-10-19 12:29] LABS: BAND NEUTROPHILS % (MANUAL) 1 % (0-8); EOSINOPHILS % (MANUAL) 1 % (0-3); LYMPHOCYTES % (MANUAL) 5 % (20-45); NEUTROPHILS % (MANUAL) 88 % (45-75); TOTAL CELLS COUNTED 100
[2016-10-19 12:30] LABS: ANISOCYTOSIS 1+; BASOPHILS % (MANUAL) 0 % (0-2); HYPOCHROMASIA 1+; PLATELET ESTIMATE ADEQUATE; PLATELET MORPHOLOGY NORMAL
[2016-10-19 16:00] VITALS: BP 139/81
[2016-10-19 19:00] VITALS: BP 134/84
--- NOTE | 2016-10-19 22:41 | Pulmonology Progress Note ---
Assessment/Plan Problems: (1) SBO (small bowel obstruction) (2) Metastatic adenocarcinoma (3) Colonic obstruction (4) Abdominal distension Assessment/Plan tolerating extubation IV fluids IV antibiotics dc planning. Subjective ROS Limited/Unobtainable: No Gastrointestinal/Abdominal: Reports: bloating, nausea, vomiting Allergies: Coded Allergies: No Known Allergies (Unverified , 04/13/15) Objective Last 24 Hour Vital Signs Date Time Temp Pulse Resp B/P Pulse Ox O2 Delivery O2 Flow Rate FiO2 10/19/16 19:00 97.9 100 20 134/84 95 Room Air 10/19/16 16:49 97.9 10/19/16 16:00 97.7 63 20 139/81 95 Room Air 10/19/16 12:00 97.8 98 18 133/78 100 Nasal Cannula 2.0 10/19/16 08:00 98.2 102 20 139/90 100 Nasal Cannula 2.0 10/19/16 04:00 97.3 95 20 153/55 95 10/19/16 00:00 97.7 82 20 135/86 95 Nasal Cannula 2.0 Intake and Output 10/18/16 10/19/16 19:00 07:00 Intake Total 1135.0 ml 980 ml Output Total 1630 ml 980 ml Balance -495.0 ml 0 ml Intake Oral 1080 ml 980 ml IV Total 55.0 ml Output Urine Total 700 ml Stool Total 850 ml 850 ml Drainage Total 40 ml 130 ml Other 40 ml # Voids 2 6 General Appearance: no acute distress HEENT: normocephalic, atraumatic, PERRL Respiratory/Chest: chest wall non-tender, decreased breath sounds, accessory muscle use Breasts: no masses Cardiovascular: normal peripheral pulses, normal rate, regular rhythm, no JVD Abdomen: hypoactive bowel sounds, distended, guarding, tender, rebound tenderness, mass Genitourinary: normal external genitalia Extremities: no cyanosis Skin: no rash Neurologic/Psychiatric: deputy sheriff custody II-XII grossly normal, no motor/sensory deficits Laboratory Tests 10/19/16 06:50: White Blood Count 7.4, Red Blood Count 3.98L, Hemoglobin 11.0L, Hematocrit 34.9L , Mean Corpuscular Volume 88, Mean Corpuscular Hemoglobin 27.6, Mean Corpuscular Hemoglobin Concent 31.6L, Red Cell Distribution Width 17.1H, Platelet Count 188, Mean Platelet Volume 6.3L, Neutrophils (%) (Auto) , Lymphocytes (%) (Auto) , Monocytes (%) (Auto) , Eosinophils (%) (Auto) , Basophils (%) (Auto) , Differential Total Cells Counted 100, Neutrophils % ( Manual) 88H, Lymphocytes % (Manual) 5L, Monocytes % (Manual) 5, Eosinophils % ( Manual) 1, Basophils % (Manual) 0, Band Neutrophils 1, Platelet Estimate Adequate, Platelet Morphology Normal, Hypochromasia 1+, Anisocytosis 1+, Sodium Level 143, Potassium Level 4.6, Chloride Level 108H, Carbon Dioxide Level 21, Anion Gap 14, Blood Urea Nitrogen 16, Creatinine 0.8, Estimat Glomerular Filtration Rate > 60, Glucose Level 100, Calcium Level 8.2L, Phosphorus Level 3.1, Total Bilirubin 0.3, Aspartate Amino Transf (AST/SGOT) 10, Alanine Aminotransferase (ALT/SGPT) 7, Alkaline Phosphatase 42, Total Protein 5.5L, Albumin 2.2L, Globulin 3.3, Albumin/Globulin Ratio 0.6L Current Medications Medications (Trade) Dose Ordered Sig/Renay Route PRN Reason Start Time Stop Time Status Last Admin Dose Admin Acetaminophen (Tylenol) 650 mg Q4H PRN ORAL fever 10/17/16 21:00 11/16/16 20:59 Dextrose (Dextrose 50%) STAT PRN IV Hypoglycemia 10/17/16 21:00 11/16/16 20:59 Lorazepam (Ativan 2mg/ml 1ml) 2 mg Q4H PRN IV For Anxiety 10/17/16 22:30 10/24/16 22:29 Morphine Sulfate (Morphine Sulfate) 2 mg Q4H PRN IVP Moderate Pain (Pain Scale 4-6) 10/17/16 19:53 10/24/16 19:52 10/19/16 02:13 Morphine Sulfate (Morphine Sulfate) 4 mg Q4H PRN IVP Severe Pain (Pain Scale 7-10) 10/17/16 19:53 10/24/16 19:52 10/19/16 21:54 Nitroglycerin (Ntg) 0.4 mg Q5M X 3 DOSES PRN SL Prn Chest Pain 10/17/16 19:00 11/16/16 18:59 Ondansetron HCl (Zofran) 4 mg Q6H PRN IVP Nausea & Vomiting 10/17/16 21:00 11/16/16 20:59 Piperacillin Sod/ Tazobactam Sod/ Sodium Chloride (Zosyn/Sodium Chloride) 110 ml @ 27.5 mls/hr Q12HR IVPB 10/17/16 21:00 10/20/16 20:59 10/19/16 21:54 Temazepam (Restoril) 15 mg HSPRN PRN ORAL Insomnia 10/17/16 21:00 10/24/16 20:59 APPLE COLON Oct 19, 2016 22:41
[2016-10-20] VITALS: BP 138/81
[2016-10-20 04:00] VITALS: BP 139/83
[2016-10-20] MEDS: Morphine Sulfate 4mg/ml Inj IVP PRN ×4 (04:22→21:20)
[2016-10-20 07:22] LABS: MEAN CORPUSCULAR HEMOGLOBIN 27.8 PG (27.0-31.0); MEAN CORPUSCULAR HGB CONC 31.7 G/DL (32.0-36.0); MEAN CORPUSCULAR VOLUME 87 FL (80-99); MEAN PLATELET VOLUME 6.2 FL (6.5-10.1); PLATELET COUNT 170 K/UL (150-450); RED CELL DISTRIBUTION WIDTH 16.6 % (11.6-14.8); WHITE BLOOD COUNT 9.8 K/UL (4.8-10.8)
[2016-10-20 07:27] LABS: ANION GAP 12 (5-15); CALCIUM 8.2 mg/dL (8.6-10.2); CARBON DIOXIDE 21 mEQ/L (20-30); CHLORIDE 114 mEQ/L (98-107); CREATININE 0.8 mg/dL (0.5-0.9); GLOMERULAR FILTRATION RATE > 60 mL/min (>60); HEMOLYSIS 33; POTASSIUM 4.6 mEQ/L (3.4-4.9); SODIUM 147 mEQ/L (135-145)
[2016-10-20 08:19] VITALS: BP 121/75
[2016-10-20] MEDS: Piperacillin/Tazobactam 3.375 GM in NS 110 ML IVPB SCH (09:08)
--- NOTE | 2016-10-20 11:14 | General Progress Note ---
Progress Note Progress Note Surgery: Patient seen and examined at bedside. Doing much better. tolerating oral diet. pain minimal. no n/v/f/c. ostomy functional. good uop. Will likely d/c KATE drain tomorrow if output stays low Ostomy care and management Midline wound ivy to be removed day of or just prior to discharge D/C Planning. Patients daughter is helping with placement. Unfortunately given her progressive stage IV cancer she is at high risk for future complications. Not sure what life expectancy or quality will be in the near future but will hopefully be comfortable now. Toin Marquis Oct 20, 2016 11:14
[2016-10-20 11:33] VITALS: BP 127/74
--- NOTE | 2016-10-20 11:39 | General Progress Note ---
Assessment/Plan Status: stable - from renal stand Assessment/Plan Acute renal failure likely due to septic Shock and Hypotension- - Septic shock - Acute respiratory failure- now extubated since 10/16 - SBO (small bowel obstruction) - Metastatic adenocarcinoma - Colonic obstruction - Sepsis - S/P exploratory laparotomy - HypoAlbuminemia Plan: today's lab Ok ? Improve nutritional state ? Monitor renal parameters and urine out put Per consultants ? DC planning? Subjective ROS Limited/Unobtainable: No Constitutional: Reports: malaise, weakness Allergies: Coded Allergies: No Known Allergies (Unverified , 04/13/15) Objective Last 24 Hour Vital Signs Date Time Temp Pulse Resp B/P Pulse Ox O2 Delivery O2 Flow Rate FiO2 10/20/16 11:33 98.2 94 20 127/74 100 Nasal Cannula 2.0 10/20/16 08:19 98.1 96 20 121/75 100 Room Air 10/20/16 07:57 Nasal Cannula 2.0 28 10/20/16 07:56 99 Nasal Cannula 2.0 28 10/20/16 04:00 98.1 95 18 139/83 99 10/20/16 00:00 97.7 103 18 138/81 100 Room Air 10/19/16 22:24 97.9 10/19/16 19:00 97.9 100 20 134/84 95 Room Air 10/19/16 16:00 97.7 63 20 139/81 95 Room Air 10/19/16 12:00 97.8 98 18 133/78 100 Nasal Cannula 2.0 Intake and Output 10/19/16 10/20/16 19:00 07:00 Intake Total 340 ml 700.0 ml Output Total 1010 ml 810 ml Balance -670 ml -110.0 ml Intake Oral 340 ml 590 ml IV Total 110.0 ml Output Urine Total 900 ml Stool Total 700 ml Drainage Total 110 ml 110 ml # Voids 3 5 Laboratory Tests 10/20/16 05:15: White Blood Count 9.8, Red Blood Count 3.50L, Hemoglobin 9.7L, Hematocrit 30.6L , Mean Corpuscular Volume 87, Mean Corpuscular Hemoglobin 27.8, Mean Corpuscular Hemoglobin Concent 31.7L, Red Cell Distribution Width 16.6H, Platelet Count 170, Mean Platelet Volume 6.2L, Neutrophils (%) (Auto) , Lymphocytes (%) (Auto) , Monocytes (%) (Auto) , Eosinophils (%) (Auto) , Basophils (%) (Auto) , Neutrophils % (Manual) [Pending], Lymphocytes % (Manual) [Pending], Platelet Estimate [Pending], Platelet Morphology [Pending], Sodium Level 147H, Potassium Level 4.6, Chloride Level 114H, Carbon Dioxide Level 21, Anion Gap 12, Blood Urea Nitrogen 15, Creatinine 0.8, Estimat Glomerular Filtration Rate > 60, Glucose Level 110H, Calcium Level 8.2L Height (Feet): 5 Height (Inches): 1.00 Weight (Pounds): 100 General Appearance: no apparent distress Objective other physical exam not changed RISSA PERDOMO Oct 20, 2016 11:39
[2016-10-20 12:04] LABS: ANISOCYTOSIS 1+; BAND NEUTROPHILS % (MANUAL) 1 % (0-8); BASOPHILS % (MANUAL) 0 % (0-2); EOSINOPHILS % (MANUAL) 1 % (0-3); HYPOCHROMASIA 1+; LYMPHOCYTES % (MANUAL) 6 % (20-45); NEUTROPHILS % (MANUAL) 91 % (45-75); PLATELET ESTIMATE ADEQUATE; PLATELET MORPHOLOGY NORMAL; TOTAL CELLS COUNTED 100
--- NOTE | 2016-10-20 13:00 | GI Progress Note ---
Assessment/Plan Problems: (1) Dilated bowel ICD Codes: K59.3 - Megacolon, not elsewhere classified SNOMED: 62428315 (2) Abdominal pain ICD Codes: R10.9 - Abdominal pain SNOMED: 77132827 (3) Anemia ICD Codes: D64.9 - Anemia SNOMED: 702767070 (4) SBO (small bowel obstruction) ICD Codes: K56.69 - SBO (small bowel obstruction) SNOMED: 997853529 (5) Metastatic adenocarcinoma ICD Codes: C79.9 - Secondary malignant neoplasm of unspecified site SNOMED: 8651393, 661914477 Status: unchanged Status Narrative Discussed with Dr. Valdez. Assessment/Plan s/p ex lap, fu surgical recs lipase unremarkable per surgery >> large hard non-mobile completely obstructing extrinsic tumor monitor H&H, transfuse prn low residual diet, tolerating ileostomy draining well ppi fu labs Subjective Subjective abdominal pain Objective Last 24 Hour Vital Signs Date Time Temp Pulse Resp B/P Pulse Ox O2 Delivery O2 Flow Rate FiO2 10/20/16 11:33 98.2 94 20 127/74 100 Nasal Cannula 2.0 10/20/16 08:19 98.1 96 20 121/75 100 Room Air 10/20/16 07:57 Nasal Cannula 2.0 28 10/20/16 07:56 99 Nasal Cannula 2.0 28 10/20/16 04:00 98.1 95 18 139/83 99 10/20/16 00:00 97.7 103 18 138/81 100 Room Air 10/19/16 22:24 97.9 10/19/16 19:00 97.9 100 20 134/84 95 Room Air 10/19/16 16:00 97.7 63 20 139/81 95 Room Air Intake and Output 10/19/16 10/20/16 19:00 07:00 Intake Total 340 ml 700.0 ml Output Total 1010 ml 810 ml Balance -670 ml -110.0 ml Intake Oral 340 ml 590 ml IV Total 110.0 ml Output Urine Total 900 ml Stool Total 700 ml Drainage Total 110 ml 110 ml # Voids 3 5 Laboratory Tests Test 10/20/16 05:15 White Blood Count 9.8 K/UL (4.8-10.8) Red Blood Count 3.50 M/UL (4.20-5.40) L Hemoglobin 9.7 G/DL (12.0-16.0) L Hematocrit 30.6 % (37.0-47.0) L Mean Corpuscular Volume 87 FL (80-99) Mean Corpuscular Hemoglobin 27.8 PG (27.0-31.0) Mean Corpuscular Hemoglobin Concent 31.7 G/DL (32.0-36.0) L Red Cell Distribution Width 16.6 % (11.6-14.8) H Platelet Count 170 K/UL (150-450) Mean Platelet Volume 6.2 FL (6.5-10.1) L Neutrophils (%) (Auto) % (45.0-75.0) Lymphocytes (%) (Auto) % (20.0-45.0) Monocytes (%) (Auto) % (1.0-10.0) Eosinophils (%) (Auto) % (0.0-3.0) Basophils (%) (Auto) % (0.0-2.0) Differential Total Cells Counted 100 Neutrophils % (Manual) 91 % (45-75) H Lymphocytes % (Manual) 6 % (20-45) L Monocytes % (Manual) 1 % (1-10) Eosinophils % (Manual) 1 % (0-3) Basophils % (Manual) 0 % (0-2) Band Neutrophils 1 % (0-8) Platelet Estimate Adequate Platelet Morphology Normal Hypochromasia 1+ Anisocytosis 1+ Sodium Level 147 mEQ/L (135-145) H Potassium Level 4.6 mEQ/L (3.4-4.9) Chloride Level 114 mEQ/L (98-107) H Carbon Dioxide Level 21 mEQ/L (20-30) Anion Gap 12 (5-15) Blood Urea Nitrogen 15 mg/dL (7-23) Creatinine 0.8 mg/dL (0.5-0.9) Estimat Glomerular Filtration Rate > 60 mL/min (>60) Glucose Level 110 mg/dL (74-106) H Calcium Level 8.2 mg/dL (8.6-10.2) L Height (Feet): 5 Height (Inches): 1.00 Weight (Pounds): 100 General Appearance: no apparent distress, alert, thin Cardiovascular: normal rate Respiratory/Chest: normal breath sounds, no respiratory distress Abdominal Exam: normal bowel sounds, non tender, soft, other - illeostomy Objective POSTOPERATIVE DIAGNOSES: 1. Complete bowel obstruction caused by large cervical cancer. 2. A small perforation of the distal terminal ileum. OPERATION PERFORMED: 1. Exploratory laparotomy. 2. Small bowel resection. 3. Creation of end ileostomy. 4. Creation of mucous fistula. 5. Lysis of adhesions. Kym Javier N.P. Oct 20, 2016 13:00
[2016-10-20 16:00] VITALS: BP 146/80
[2016-10-20 19:00] VITALS: BP 143/89
--- NOTE | 2016-10-20 23:31 | Pulmonology Progress Note ---
Assessment/Plan Problems: (1) SBO (small bowel obstruction) (2) Metastatic adenocarcinoma (3) Colonic obstruction (4) Abdominal distension Assessment/Plan tolerating extubation IV fluids IV antibiotics dc planning. Subjective ROS Limited/Unobtainable: No Gastrointestinal/Abdominal: Reports: bloating, nausea, vomiting Allergies: Coded Allergies: No Known Allergies (Unverified , 04/13/15) Objective Last 24 Hour Vital Signs Date Time Temp Pulse Resp B/P Pulse Ox O2 Delivery O2 Flow Rate FiO2 10/20/16 20:09 Nasal Cannula 2.0 28 10/20/16 20:08 98 Nasal Cannula 2.0 28 10/20/16 19:00 96.8 100 20 143/89 100 Room Air 10/20/16 17:10 98.2 10/20/16 16:00 98.2 72 20 146/80 99 Room Air 10/20/16 11:33 98.2 94 20 127/74 100 Nasal Cannula 2.0 10/20/16 08:19 98.1 96 20 121/75 100 Room Air 10/20/16 07:57 Nasal Cannula 2.0 28 10/20/16 07:56 99 Nasal Cannula 2.0 28 10/20/16 04:00 98.1 95 18 139/83 99 10/20/16 00:00 97.7 103 18 138/81 100 Room Air Intake and Output 10/19/16 10/20/16 19:00 07:00 Intake Total 340 ml 700.0 ml Output Total 1010 ml 810 ml Balance -670 ml -110.0 ml Intake Oral 340 ml 590 ml IV Total 110.0 ml Output Urine Total 900 ml Stool Total 700 ml Drainage Total 110 ml 110 ml # Voids 3 5 General Appearance: no acute distress HEENT: normocephalic, atraumatic, PERRL Respiratory/Chest: chest wall non-tender, normal breath sounds, no respiratory distress Breasts: no masses Cardiovascular: normal peripheral pulses, normal rate, regular rhythm Abdomen: absent bowel sounds, distended, guarding, tender, rebound tenderness, mass Genitourinary: normal external genitalia Extremities: no cyanosis Skin: no rash, no lesions Neurologic/Psychiatric: oyster sorter II-XII grossly normal, no motor/sensory deficits Laboratory Tests 10/20/16 05:15: White Blood Count 9.8, Red Blood Count 3.50L, Hemoglobin 9.7L, Hematocrit 30.6L , Mean Corpuscular Volume 87, Mean Corpuscular Hemoglobin 27.8, Mean Corpuscular Hemoglobin Concent 31.7L, Red Cell Distribution Width 16.6H, Platelet Count 170, Mean Platelet Volume 6.2L, Neutrophils (%) (Auto) , Lymphocytes (%) (Auto) , Monocytes (%) (Auto) , Eosinophils (%) (Auto) , Basophils (%) (Auto) , Differential Total Cells Counted 100, Neutrophils % ( Manual) 91H, Lymphocytes % (Manual) 6L, Monocytes % (Manual) 1, Eosinophils % ( Manual) 1, Basophils % (Manual) 0, Band Neutrophils 1, Platelet Estimate Adequate, Platelet Morphology Normal, Hypochromasia 1+, Anisocytosis 1+, Sodium Level 147H, Potassium Level 4.6, Chloride Level 114H, Carbon Dioxide Level 21, Anion Gap 12, Blood Urea Nitrogen 15, Creatinine 0.8, Estimat Glomerular Filtration Rate > 60, Glucose Level 110H, Calcium Level 8.2L Current Medications Medications (Trade) Dose Ordered Sig/Renay Route PRN Reason Start Time Stop Time Status Last Admin Dose Admin Acetaminophen (Tylenol) 650 mg Q4H PRN ORAL fever 10/17/16 21:00 11/16/16 20:59 Dextrose (Dextrose 50%) STAT PRN IV Hypoglycemia 10/17/16 21:00 11/16/16 20:59 Lorazepam (Ativan 2mg/ml 1ml) 2 mg Q4H PRN IV For Anxiety 10/17/16 22:30 10/24/16 22:29 Morphine Sulfate (Morphine Sulfate) 2 mg Q4H PRN IVP Moderate Pain (Pain Scale 4-6) 10/17/16 19:53 10/24/16 19:52 10/19/16 02:13 Morphine Sulfate (Morphine Sulfate) 4 mg Q4H PRN IVP Severe Pain (Pain Scale 7-10) 10/17/16 19:53 10/24/16 19:52 10/20/16 21:20 Nitroglycerin (Ntg) 0.4 mg Q5M X 3 DOSES PRN SL Prn Chest Pain 10/17/16 19:00 11/16/16 18:59 Ondansetron HCl (Zofran) 4 mg Q6H PRN IVP Nausea & Vomiting 10/17/16 21:00 11/16/16 20:59 Temazepam (Restoril) 15 mg HSPRN PRN ORAL Insomnia 10/17/16 21:00 10/24/16 20:59 APPLE COLON Oct 20, 2016 23:31
[2016-10-21] VITALS (7 sets, daily range): BP systolic 117–144; BP diastolic 65–83
[2016-10-21] MEDS: Morphine Sulfate 4mg/ml Inj IVP PRN ×4 (03:35→18:41)
[2016-10-21 07:23] LABS: MEAN CORPUSCULAR HEMOGLOBIN 27.5 PG (27.0-31.0); MEAN CORPUSCULAR HGB CONC 31.4 G/DL (32.0-36.0); MEAN CORPUSCULAR VOLUME 87 FL (80-99); MEAN PLATELET VOLUME 6.2 FL (6.5-10.1); PLATELET COUNT 231 K/UL (150-450); RED BLOOD COUNT 3.58 M/UL (4.20-5.40); RED CELL DISTRIBUTION WIDTH 16.5 % (11.6-14.8); WHITE BLOOD COUNT 10.7 K/UL (4.8-10.8)
[2016-10-21 07:56] LABS: ANION GAP 12 (5-15); CALCIUM 8.5 mg/dL (8.6-10.2); CARBON DIOXIDE 23 mEQ/L (20-30); CHLORIDE 108 mEQ/L (98-107); CREATININE 0.6 mg/dL (0.5-0.9); GLOMERULAR FILTRATION RATE > 60 mL/min (>60); HEMOLYSIS 5; POTASSIUM 4.3 mEQ/L (3.4-4.9); SODIUM 143 mEQ/L (135-145)
[2016-10-21 10:18] LABS: ANISOCYTOSIS 1+; BAND NEUTROPHILS % (MANUAL) 0 % (0-8); BASOPHILS % (MANUAL) 0 % (0-2); EOSINOPHILS % (MANUAL) 0 % (0-3); HYPOCHROMASIA 2+; LYMPHOCYTES % (MANUAL) 3 % (20-45); NEUTROPHILS % (MANUAL) 95 % (45-75); PLATELET ESTIMATE ADEQUATE; PLATELET MORPHOLOGY NORMAL; TOTAL CELLS COUNTED 100
--- NOTE | 2016-10-21 10:41 | General Progress Note ---
Progress Note Progress Note Pt is eating well, abdomen is soft, KATE drain was d/c'd. She is awaiting placement. She is stable from a surgical standpoint. Nirmal Fu MD Oct 21, 2016 10:41
--- NOTE | 2016-10-21 13:18 | General Progress Note ---
Assessment/Plan Problem List: (1) S/P exploratory laparotomy ICD Codes: Z98.890 - Other specified postprocedural states SNOMED: 77665141, 31332787, 766134394 (2) Anemia ICD Codes: D64.9 - Anemia SNOMED: 557480194 (3) SBO (small bowel obstruction) ICD Codes: K56.69 - SBO (small bowel obstruction) SNOMED: 312790767 (4) Metastatic adenocarcinoma ICD Codes: C79.9 - Secondary malignant neoplasm of unspecified site SNOMED: 0006313, 977870042 Assessment/Plan post op care fu labs supportive care fu surgery recs Subjective ROS Limited/Unobtainable: Yes Allergies: Coded Allergies: No Known Allergies (Unverified , 04/13/15) Subjective no event Objective Last 24 Hour Vital Signs Date Time Temp Pulse Resp B/P Pulse Ox O2 Delivery O2 Flow Rate FiO2 10/21/16 11:32 95 16 122/65 100 Room Air 10/21/16 09:22 98.4 10/21/16 08:04 98.4 101 20 117/71 100 Room Air 10/21/16 08:00 99 Nasal Cannula 2.0 28 10/21/16 08:00 Nasal Cannula 2.0 28 10/21/16 04:00 97.9 97 18 125/76 99 Room Air 10/21/16 00:00 98.2 96 18 132/75 100 Room Air 10/20/16 20:09 Nasal Cannula 2.0 28 10/20/16 20:08 98 Nasal Cannula 2.0 28 10/20/16 19:00 96.8 100 20 143/89 100 Room Air 10/20/16 16:00 98.2 72 20 146/80 99 Room Air Intake and Output 10/20/16 10/21/16 19:00 07:00 Intake Total 450 ml 670 ml Output Total 930 ml 410 ml Balance -480 ml 260 ml Intake Oral 450 ml 670 ml Output Urine Total 450 ml Stool Total 400 ml 350 ml Drainage Total 80 ml 60 ml # Voids 6 Laboratory Tests 10/21/16 05:55: White Blood Count 10.7, Red Blood Count 3.58L, Hemoglobin 9.8L, Hematocrit 31.3L , Mean Corpuscular Volume 87, Mean Corpuscular Hemoglobin 27.5, Mean Corpuscular Hemoglobin Concent 31.4L, Red Cell Distribution Width 16.5H, Platelet Count 231, Mean Platelet Volume 6.2L, Neutrophils (%) (Auto) , Lymphocytes (%) (Auto) , Monocytes (%) (Auto) , Eosinophils (%) (Auto) , Basophils (%) (Auto) , Differential Total Cells Counted 100, Neutrophils % ( Manual) 95H, Lymphocytes % (Manual) 3L, Monocytes % (Manual) 2, Eosinophils % ( Manual) 0, Basophils % (Manual) 0, Band Neutrophils 0, Platelet Estimate Adequate, Platelet Morphology Normal, Hypochromasia 2+, Anisocytosis 1+, Sodium Level 143, Potassium Level 4.3, Chloride Level 108H, Carbon Dioxide Level 23, Anion Gap 12, Blood Urea Nitrogen 10, Creatinine 0.6, Estimat Glomerular Filtration Rate > 60, Glucose Level 88, Calcium Level 8.5L Height (Feet): 5 Height (Inches): 1.00 Weight (Pounds): 100 General Appearance: no apparent distress EENT: normal ENT inspection Neck: supple Cardiovascular: normal rate Respiratory/Chest: decreased breath sounds Abdomen: normal bowel sounds, non tender, soft Extremities: non-tender PERLA DAN Oct 21, 2016 13:18
--- NOTE | 2016-10-21 14:27 | General Progress Note ---
Assessment/Plan Status: stable Assessment/Plan Acute renal failure likely due to septic Shock and Hypotension- - Septic shock - Acute respiratory failure- now extubated since 10/16 - SBO (small bowel obstruction) - Metastatic adenocarcinoma - Colonic obstruction - Sepsis - S/P exploratory laparotomy - HypoAlbuminemia Plan: today's lab Ok ? Improve nutritional state ? Monitor renal parameters and urine out put Per consultants ? DC planning? Subjective ROS Limited/Unobtainable: No Constitutional: Reports: malaise, weakness Allergies: Coded Allergies: No Known Allergies (Unverified , 04/13/15) Objective Last 24 Hour Vital Signs Date Time Temp Pulse Resp B/P Pulse Ox O2 Delivery O2 Flow Rate FiO2 10/21/16 11:32 95 16 122/65 100 Room Air 10/21/16 09:22 98.4 10/21/16 08:04 98.4 101 20 117/71 100 Room Air 10/21/16 08:00 99 Nasal Cannula 2.0 28 10/21/16 08:00 Nasal Cannula 2.0 28 10/21/16 04:00 97.9 97 18 125/76 99 Room Air 10/21/16 00:00 98.2 96 18 132/75 100 Room Air 10/20/16 20:09 Nasal Cannula 2.0 28 10/20/16 20:08 98 Nasal Cannula 2.0 28 10/20/16 19:00 96.8 100 20 143/89 100 Room Air 10/20/16 16:00 98.2 72 20 146/80 99 Room Air Intake and Output 10/20/16 10/21/16 19:00 07:00 Intake Total 450 ml 670 ml Output Total 930 ml 410 ml Balance -480 ml 260 ml Intake Oral 450 ml 670 ml Output Urine Total 450 ml Stool Total 400 ml 350 ml Drainage Total 80 ml 60 ml # Voids 6 Laboratory Tests 10/21/16 05:55: White Blood Count 10.7, Red Blood Count 3.58L, Hemoglobin 9.8L, Hematocrit 31.3L , Mean Corpuscular Volume 87, Mean Corpuscular Hemoglobin 27.5, Mean Corpuscular Hemoglobin Concent 31.4L, Red Cell Distribution Width 16.5H, Platelet Count 231, Mean Platelet Volume 6.2L, Neutrophils (%) (Auto) , Lymphocytes (%) (Auto) , Monocytes (%) (Auto) , Eosinophils (%) (Auto) , Basophils (%) (Auto) , Differential Total Cells Counted 100, Neutrophils % ( Manual) 95H, Lymphocytes % (Manual) 3L, Monocytes % (Manual) 2, Eosinophils % ( Manual) 0, Basophils % (Manual) 0, Band Neutrophils 0, Platelet Estimate Adequate, Platelet Morphology Normal, Hypochromasia 2+, Anisocytosis 1+, Sodium Level 143, Potassium Level 4.3, Chloride Level 108H, Carbon Dioxide Level 23, Anion Gap 12, Blood Urea Nitrogen 10, Creatinine 0.6, Estimat Glomerular Filtration Rate > 60, Glucose Level 88, Calcium Level 8.5L Height (Feet): 5 Height (Inches): 1.00 Weight (Pounds): 100 General Appearance: no apparent distress Objective other physical exam not changed RISSA PERDOMO 16, 2017 14:27
--- NOTE | 2016-10-21 14:49 | Wound Care Consultation ---
Wound Assessment Wound Assessment : Wound Present on Admission: No New Wound: Yes Status Change of Wound: No Wound Location Body Site Modif: mid Wound Location Body Site: sacral Wound Type: pressure ulcer Michael Test: Does not Michael Pressure Ulcer Stage: II Wound Thickness: Partial Thickness Wound Length: 3.5 Wound Width: 3.5 Wound Depth: 0.1 Percent of Wound [place]/Red: 100 Wound Drainage Description: Serosanguineous Wound Drainage Amount: Scant Wound Drainage Odor: None/Absent Tissue Surrounding Wound: Denuded Wound General Appearance: Reddened Wound Comment #1 Sacral stage II pressure ulcer Recommendation -Sacral stage II pressure ulcer Cleanse with saline, pat dry, apply Triad cream, cover with Biatain silicone daily and PRN soiled/dislodged -Keep clean and dry -Turn and reposition -Low air loss overlay mattress -Optimize nutrition -Offload both heels -Assess and f/u accordingly for any changes SUSHIL TEE RN Oct 21, 2016 14:49
--- NOTE | 2016-10-21 15:04 | Wound Nurse Progress Note ---
Wound RN Progress Note Wound Consult Saw this Pt today for ostomy care/training. Pt stated that she wants to do it while her daughter is present and she will ask the the nurses to call me when she comes. SUSHIL TEE RN Oct 21, 2016 15:04
[2016-10-22] VITALS: BP 124/66
[2016-10-22] MEDS: Morphine Sulfate 4mg/ml Inj IVP PRN ×2 (01:38→08:18)
[2016-10-22 04:00] VITALS: BP 125/62
[2016-10-22 08:54] VITALS: BP 122/66
--- NOTE | 2016-10-22 09:04 | Pulmonology Progress Note ---
Assessment/Plan Assessment/Plan ASSESSMENT septic shock acute respiratory failure requiring intubation s/p extubation sigmoid rectal obstruction 2 to large cervical cancer metastatic adenocarcinoma s/p exploratory laparotomy 10/12 with SB resection, creation of ileostomy and lysis of adhesions postoperative pain anemia s/p 2 u PRBC transfusion acute renal failure/ATN - likely 2 to shock-resolved PLAN OF CARE MS floor extubated O2 HHN prn IVF diet as tolerated pain management antiemetic rpn wound care nurse for ostomy care teaching surgery follows peritoneal fluid pathology c/w with malignancy low residue diet, monitor tolerance, a/emetic prn awaiting for placement case discussed and evaluated by supervising physician Subjective Allergies: Coded Allergies: No Known Allergies (Unverified , 04/13/15) Subjective + intermittent postop pain, controlled with current regimen low grade fever, no leukocytosis + appetite, wants to eat Objective Last 24 Hour Vital Signs Date Time Temp Pulse Resp B/P Pulse Ox O2 Delivery O2 Flow Rate FiO2 10/22/16 04:00 100.0 98 18 125/62 99 Room Air 10/22/16 02:08 99.7 10/22/16 00:00 99.7 105 18 124/66 98 Room Air 10/21/16 19:39 98 Nasal Cannula 2.0 28 10/21/16 19:39 Nasal Cannula 2.0 28 10/21/16 19:00 99.5 100 20 141/72 100 Room Air 10/21/16 15:59 99.9 100 20 131/69 100 Room Air 10/21/16 11:32 95 16 122/65 100 Room Air Intake and Output 10/21/16 10/22/16 19:00 07:00 Intake Total 2000 ml 1030 ml Output Total 1700 ml 800 ml Balance 300 ml 230 ml Intake Oral 2000 ml 1030 ml Output Urine Total 1200 ml Stool Total 500 ml 800 ml # Voids 8 # Bowel Movements 50 General Appearance: no acute distress, other - awake, alert, responsive, cachetic AA female HEENT: normocephalic, atraumatic, other - R jugular CL intact Respiratory/Chest: lungs clear, no respiratory distress, no accessory muscle use Cardiovascular: normal peripheral pulses, normal rate, regular rhythm, no JVD Abdomen: normal bowel sounds, other - incision with ivy 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, 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 , drerssing C/D/I Genitourinary: normal external genitalia Extremities: no edema Neurologic/Psychiatric: no motor/sensory deficits, alert, oriented x 3, responsive Current Medications Medications (Trade) Dose Ordered Sig/Renay Route PRN Reason Start Time Stop Time Status Last Admin Dose Admin Acetaminophen (Tylenol) 650 mg Q4H PRN ORAL fever 10/17/16 21:00 11/16/16 20:59 Dextrose (Dextrose 50%) STAT PRN IV Hypoglycemia 10/17/16 21:00 11/16/16 20:59 Lorazepam (Ativan 2mg/ml 1ml) 2 mg Q4H PRN IV For Anxiety 10/17/16 22:30 10/24/16 22:29 Morphine Sulfate (Morphine Sulfate) 2 mg Q4H PRN IVP Moderate Pain (Pain Scale 4-6) 10/17/16 19:53 10/24/16 19:52 10/19/16 02:13 Morphine Sulfate (Morphine Sulfate) 4 mg Q4H PRN IVP Severe Pain (Pain Scale 7-10) 10/17/16 19:53 10/24/16 19:52 10/22/16 08:18 Nitroglycerin (Ntg) 0.4 mg Q5M X 3 DOSES PRN SL Prn Chest Pain 10/17/16 19:00 11/16/16 18:59 Ondansetron HCl (Zofran) 4 mg Q6H PRN IVP Nausea & Vomiting 10/17/16 21:00 11/16/16 20:59 Temazepam (Restoril) 15 mg HSPRN PRN ORAL Insomnia 10/17/16 21:00 10/24/16 20:59 Susanne Roberto NP ([facility]) Oct 22, 2016 09:04
[2016-10-22] MEDS ORDERED: LORazepam Inj 2mg/ml 1ml IV PRN (10:30)
--- NOTE | 2016-10-22 10:41 | General Progress Note ---
Progress Note Progress Note Surgery: Patient seen and examined at bedside. Doing well. Tolerating oral diet. Ostomy functional. Midline wound clean. Gabe removed. Doing well with drain out. Low grade fevers. No leukocytosis recently Plan to d/c central line Change meds to PO Encourage Incentive spirometry Diet as tolerated Wound care as needed Discharge planning. Toni Marquis Oct 22, 2016 10:41
[2016-10-22 11:49] VITALS: BP 103/61
[2016-10-22] MEDS ORDERED: Morphine Sulfate 4mg/ml Inj IVP PRN (11:53)
[2016-10-22] MEDS ORDERED: Morphine Sulfate 2mg/ml Inj IVP PRN (11:53)
--- NOTE | 2016-10-22 12:08 | General Progress Note ---
Assessment/Plan Problem List: (1) S/P exploratory laparotomy ICD Codes: Z98.890 - Other specified postprocedural states SNOMED: 62047192, 66945510, 479813921 (2) Anemia ICD Codes: D64.9 - Anemia SNOMED: 841211995 (3) SBO (small bowel obstruction) ICD Codes: K56.69 - SBO (small bowel obstruction) SNOMED: 311002013 (4) Metastatic adenocarcinoma ICD Codes: C79.9 - Secondary malignant neoplasm of unspecified site SNOMED: 1372176, 172873970 Assessment/Plan post op care fu labs supportive care fu surgery recs Subjective ROS Limited/Unobtainable: Yes Allergies: Coded Allergies: No Known Allergies (Unverified , 04/13/15) Subjective no event Objective Last 24 Hour Vital Signs Date Time Temp Pulse Resp B/P Pulse Ox O2 Delivery O2 Flow Rate FiO2 10/22/16 11:49 97.9 96 16 103/61 99 Room Air 10/22/16 10:37 98.2 10/22/16 08:54 100.0 98 16 122/66 100 Room Air 10/22/16 04:00 100.0 98 18 125/62 99 Room Air 10/22/16 02:08 99.7 10/22/16 00:00 99.7 105 18 124/66 98 Room Air 10/21/16 19:39 98 Nasal Cannula 2.0 28 10/21/16 19:39 Nasal Cannula 2.0 28 10/21/16 19:00 99.5 100 20 141/72 100 Room Air 10/21/16 15:59 99.9 100 20 131/69 100 Room Air Intake and Output 10/21/16 10/22/16 19:00 07:00 Intake Total 2000 ml 1030 ml Output Total 1700 ml 800 ml Balance 300 ml 230 ml Intake Oral 2000 ml 1030 ml Output Urine Total 1200 ml Stool Total 500 ml 800 ml # Voids 8 # Bowel Movements 50 Height (Feet): 5 Height (Inches): 1.00 Weight (Pounds): 100 General Appearance: alert EENT: normal ENT inspection Neck: supple Cardiovascular: normal rate Respiratory/Chest: decreased breath sounds Abdomen: soft, hypoactive bowel sounds Extremities: non-tender PERAL DAN Oct 22, 2016 12:08
--- NOTE | 2016-10-22 12:23 | General Progress Note ---
Assessment/Plan Problem List: (1) S/P exploratory laparotomy ICD Codes: Z98.890 - Other specified postprocedural states SNOMED: 86505507, 89963343, 200799178 (2) Anemia ICD Codes: D64.9 - Anemia SNOMED: 650946677 (3) SBO (small bowel obstruction) ICD Codes: K56.69 - SBO (small bowel obstruction) SNOMED: 745359590 (4) Metastatic adenocarcinoma ICD Codes: C79.9 - Secondary malignant neoplasm of unspecified site SNOMED: 6754269, 091394669 Assessment/Plan post op care fu labs supportive care fu surgery recs Subjective ROS Limited/Unobtainable: Yes Allergies: Coded Allergies: No Known Allergies (Unverified , 04/13/15) Subjective no event Objective Last 24 Hour Vital Signs Date Time Temp Pulse Resp B/P Pulse Ox O2 Delivery O2 Flow Rate FiO2 10/22/16 11:49 97.9 96 16 103/61 99 Room Air 10/22/16 10:37 98.2 10/22/16 08:54 100.0 98 16 122/66 100 Room Air 10/22/16 04:00 100.0 98 18 125/62 99 Room Air 10/22/16 02:08 99.7 10/22/16 00:00 99.7 105 18 124/66 98 Room Air 10/21/16 19:39 98 Nasal Cannula 2.0 28 10/21/16 19:39 Nasal Cannula 2.0 28 10/21/16 19:00 99.5 100 20 141/72 100 Room Air 10/21/16 15:59 99.9 100 20 131/69 100 Room Air Intake and Output 10/21/16 10/22/16 19:00 07:00 Intake Total 2000 ml 1030 ml Output Total 1700 ml 800 ml Balance 300 ml 230 ml Intake Oral 2000 ml 1030 ml Output Urine Total 1200 ml Stool Total 500 ml 800 ml # Voids 8 # Bowel Movements 50 Height (Feet): 5 Height (Inches): 1.00 Weight (Pounds): 100 General Appearance: alert EENT: normal ENT inspection Neck: supple Cardiovascular: normal rate Respiratory/Chest: decreased breath sounds Extremities: non-tender PERLA DAN Oct 22, 2016 12:23
[2016-10-22 16:00] VITALS: BP 121/60
--- NOTE | 2016-10-22 16:24 | General Progress Note ---
Assessment/Plan Status: stable Assessment/Plan Acute renal failure likely due to septic Shock and Hypotension- - Septic shock - Acute respiratory failure- now extubated since 10/16 - SBO (small bowel obstruction) - Metastatic adenocarcinoma - Colonic obstruction - Sepsis - S/P exploratory laparotomy - HypoAlbuminemia Plan: today's lab Ok ? Improve nutritional state ? Monitor renal parameters and urine out put Per consultants ? DC planning? Subjective Date patient seen: Oct 22, 2016 Time patient seen: 11:30 ROS Limited/Unobtainable: No Constitutional: Reports: malaise, weakness Allergies: Coded Allergies: No Known Allergies (Unverified , 04/13/15) Objective Last 24 Hour Vital Signs Date Time Temp Pulse Resp B/P Pulse Ox O2 Delivery O2 Flow Rate FiO2 10/22/16 11:49 97.9 96 16 103/61 99 Room Air 10/22/16 10:37 98.2 10/22/16 08:54 100.0 98 16 122/66 100 Room Air 10/22/16 04:00 100.0 98 18 125/62 99 Room Air 10/22/16 02:08 99.7 10/22/16 00:00 99.7 105 18 124/66 98 Room Air 10/21/16 19:39 98 Nasal Cannula 2.0 28 10/21/16 19:39 Nasal Cannula 2.0 28 10/21/16 19:00 99.5 100 20 141/72 100 Room Air Intake and Output 10/21/16 10/22/16 19:00 07:00 Intake Total 2000 ml 1030 ml Output Total 1700 ml 800 ml Balance 300 ml 230 ml Intake Oral 2000 ml 1030 ml Output Urine Total 1200 ml Stool Total 500 ml 800 ml # Voids 8 # Bowel Movements 50 Height (Feet): 5 Height (Inches): 1.00 Weight (Pounds): 100 General Appearance: no apparent distress Objective other physical exam not changed RISSA PERDOMO Oct 22, 2016 16:24
--- NOTE | 2016-10-22 16:49 | General Progress Note ---
Assessment/Plan Status: stable - from renal stand Assessment/Plan Acute renal failure likely due to septic Shock and Hypotension- - Septic shock - Acute respiratory failure- now extubated since 10/16 - SBO (small bowel obstruction) - Metastatic adenocarcinoma - Colonic obstruction - Sepsis - S/P exploratory laparotomy - HypoAlbuminemia Plan: today's lab Ok ? Improve nutritional state ? Monitor renal parameters and urine out put Per consultants ? DC planning? Subjective ROS Limited/Unobtainable: No Constitutional: Reports: malaise Allergies: Coded Allergies: No Known Allergies (Unverified , 04/13/15) Objective Last 24 Hour Vital Signs Date Time Temp Pulse Resp B/P Pulse Ox O2 Delivery O2 Flow Rate FiO2 10/22/16 16:00 98.6 92 18 121/60 100 Room Air 10/22/16 11:49 97.9 96 16 103/61 99 Room Air 10/22/16 10:37 98.2 10/22/16 08:54 100.0 98 16 122/66 100 Room Air 10/22/16 04:00 100.0 98 18 125/62 99 Room Air 10/22/16 02:08 99.7 10/22/16 00:00 99.7 105 18 124/66 98 Room Air 10/21/16 19:39 98 Nasal Cannula 2.0 28 10/21/16 19:39 Nasal Cannula 2.0 28 10/21/16 19:00 99.5 100 20 141/72 100 Room Air Intake and Output 10/21/16 10/22/16 19:00 07:00 Intake Total 2000 ml 1030 ml Output Total 1700 ml 800 ml Balance 300 ml 230 ml Intake Oral 2000 ml 1030 ml Output Urine Total 1200 ml Stool Total 500 ml 800 ml # Voids 8 # Bowel Movements 50 Height (Feet): 5 Height (Inches): 1.00 Weight (Pounds): 100 General Appearance: no apparent distress Objective other physical exam not changed RISSA PERDOMO Oct 22, 2016 16:49
[2016-10-22] MEDS: Norco 10mg/325mg tab ORAL PRN ×2 (17:29→22:01)
[2016-10-22 20:00] VITALS: BP 120/57
[2016-10-23] VITALS: BP 111/68
[2016-10-23] MEDS: Norco 10mg/325mg tab ORAL PRN ×4 (03:43→21:31)
[2016-10-23 04:00] VITALS: BP 112/68
[2016-10-23 08:15] VITALS: BP 115/68
[2016-10-23 08:18] LABS: MEAN CORPUSCULAR VOLUME 88 FL (80-99); MEAN PLATELET VOLUME 5.8 FL (6.5-10.1); PLATELET COUNT 323 K/UL (150-450); RED BLOOD COUNT 2.97 M/UL (4.20-5.40); RED CELL DISTRIBUTION WIDTH 16.3 % (11.6-14.8); WHITE BLOOD COUNT 9.7 K/UL (4.8-10.8)
--- NOTE | 2016-10-23 08:19 | General Progress Note ---
Assessment/Plan Problem List: (1) S/P exploratory laparotomy ICD Codes: Z98.890 - Other specified postprocedural states SNOMED: 71935021, 07940248, 590391710 (2) Anemia ICD Codes: D64.9 - Anemia SNOMED: 196742891 (3) SBO (small bowel obstruction) ICD Codes: K56.69 - SBO (small bowel obstruction) SNOMED: 499182052 (4) Metastatic adenocarcinoma ICD Codes: C79.9 - Secondary malignant neoplasm of unspecified site SNOMED: 6192584, 455717183 Assessment/Plan post op care fu labs supportive care fu surgery recs Subjective ROS Limited/Unobtainable: Yes Allergies: Coded Allergies: No Known Allergies (Unverified , 04/13/15) Subjective no event Objective Last 24 Hour Vital Signs Date Time Temp Pulse Resp B/P Pulse Ox O2 Delivery O2 Flow Rate FiO2 10/23/16 08:15 97.6 87 21 115/68 97 Room Air 10/23/16 04:00 97.6 90 18 112/68 100 Room Air 10/23/16 00:00 97.9 98 18 111/68 100 Room Air 10/22/16 20:00 98.6 81 17 120/57 100 Room Air 10/22/16 16:00 98.6 92 18 121/60 100 Room Air 10/22/16 11:49 97.9 96 16 103/61 99 Room Air 10/22/16 10:37 98.2 10/22/16 08:54 100.0 98 16 122/66 100 Room Air Intake and Output 10/22/16 10/23/16 19:00 07:00 Intake Total 1800 ml 550 ml Output Total 1000 ml 1250 ml Balance 800 ml -700 ml Intake Oral 1800 ml 550 ml Output Urine Total 500 ml Stool Total 500 ml 1250 ml # Voids 2 # Bowel Movements 2 Laboratory Tests 10/23/16 06:55: White Blood Count [Pending], Red Blood Count [Pending], Hemoglobin [Pending], Hematocrit [Pending], Mean Corpuscular Volume [Pending], Mean Corpuscular Hemoglobin [Pending], Mean Corpuscular Hemoglobin Concent [Pending], Red Cell Distribution Width [Pending], Platelet Count [Pending], Mean Platelet Volume [ Pending], Neutrophils (%) (Auto) [Pending], Lymphocytes (%) (Auto) [Pending], Monocytes (%) (Auto) [Pending], Eosinophils (%) (Auto) [Pending], Basophils (%) (Auto) [Pending], Sodium Level [Pending], Potassium Level [Pending], Chloride Level [Pending], Carbon Dioxide Level [Pending], Blood Urea Nitrogen [Pending], Creatinine [Pending], Estimat Glomerular Filtration Rate [Pending], Glucose Level [Pending], Calcium Level [Pending] Height (Feet): 5 Height (Inches): 1.00 Weight (Pounds): 100 General Appearance: no apparent distress EENT: normal ENT inspection Neck: supple Cardiovascular: normal rate Respiratory/Chest: decreased breath sounds Abdomen: soft, hypoactive bowel sounds Extremities: non-tender PERLA DAN Oct 23, 2016 08:19
[2016-10-23 08:42] LABS: ANION GAP 14 (5-15); CALCIUM 8.2 mg/dL (8.6-10.2); CARBON DIOXIDE 22 mEQ/L (20-30); CHLORIDE 107 mEQ/L (98-107); CREATININE 0.6 mg/dL (0.5-0.9); GLOMERULAR FILTRATION RATE > 60 mL/min (>60); HEMOLYSIS 2; POTASSIUM 4.2 mEQ/L (3.4-4.9); SODIUM 143 mEQ/L (135-145)
--- NOTE | 2016-10-23 10:08 | General Progress Note ---
Assessment/Plan Status: stable Assessment/Plan Acute renal failure likely due to septic Shock and Hypotension- - Septic shock - Acute respiratory failure- now extubated since 10/16 - SBO (small bowel obstruction) - Metastatic adenocarcinoma - Colonic obstruction - Sepsis - S/P exploratory laparotomy - HypoAlbuminemia Plan: today's lab Ok ? Improve nutritional state ? Monitor renal parameters and urine out put Per consultants ? DC planning? Subjective ROS Limited/Unobtainable: No Allergies: Coded Allergies: No Known Allergies (Unverified , 04/13/15) Objective Last 24 Hour Vital Signs Date Time Temp Pulse Resp B/P Pulse Ox O2 Delivery O2 Flow Rate FiO2 10/23/16 08:15 97.6 87 21 115/68 97 Room Air 10/23/16 04:00 97.6 90 18 112/68 100 Room Air 10/23/16 00:00 97.9 98 18 111/68 100 Room Air 10/22/16 20:00 98.6 81 17 120/57 100 Room Air 10/22/16 16:00 98.6 92 18 121/60 100 Room Air 10/22/16 11:49 97.9 96 16 103/61 99 Room Air 10/22/16 10:37 98.2 Intake and Output 10/22/16 10/23/16 19:00 07:00 Intake Total 1800 ml 550 ml Output Total 1000 ml 1250 ml Balance 800 ml -700 ml Intake Oral 1800 ml 550 ml Output Urine Total 500 ml Stool Total 500 ml 1250 ml # Voids 2 # Bowel Movements 2 Laboratory Tests 10/23/16 06:55: White Blood Count 9.7, Red Blood Count 2.97L, Hemoglobin 8.6L, Hematocrit 26.1L , Mean Corpuscular Volume 88, Mean Corpuscular Hemoglobin 29.0, Mean Corpuscular Hemoglobin Concent 33.0, Red Cell Distribution Width 16.3H, Platelet Count 323, Mean Platelet Volume 5.8L, Neutrophils (%) (Auto) , Lymphocytes (%) (Auto) , Monocytes (%) (Auto) , Eosinophils (%) (Auto) , Basophils (%) (Auto) , Neutrophils % (Manual) [Pending], Lymphocytes % (Manual) [Pending], Platelet Estimate [Pending], Platelet Morphology [Pending], Sodium Level 143, Potassium Level 4.2, Chloride Level 107, Carbon Dioxide Level 22, Anion Gap 14, Blood Urea Nitrogen 9, Creatinine 0.6, Estimat Glomerular Filtration Rate > 60, Glucose Level 98, Calcium Level 8.2L Height (Feet): 5 Height (Inches): 1.00 Weight (Pounds): 100 General Appearance: no apparent distress Objective other physical exam not changed RISSA PERDOMO 18, 2017 10:08
--- NOTE | 2016-10-23 11:14 | General Progress Note ---
Progress Note Progress Note Afebrile, losing weight, looks gaunt. Some nausea, pain same. PO meds and antiemetics, Discharge soon. J CARLOS BEAR Oct 23, 2016 11:14
[2016-10-23 11:57] LABS: EOSINOPHILS % (MANUAL) 1 % (0-3); LYMPHOCYTES % (MANUAL) 20 % (20-45); NEUTROPHILS % (MANUAL) 79 % (45-75); TOTAL CELLS COUNTED 100
[2016-10-23 11:58] LABS: ANISOCYTOSIS 1+; BAND NEUTROPHILS % (MANUAL) 0 % (0-8); BASOPHILS % (MANUAL) 0 % (0-2); PLATELET ESTIMATE ADEQUATE; PLATELET MORPHOLOGY NORMAL
[2016-10-23 12:05] VITALS: BP 97/58
--- NOTE | 2016-10-23 13:58 | Pulmonology Progress Note ---
Assessment/Plan Assessment/Plan ASSESSMENT septic shock acute respiratory failure requiring intubation s/p extubation sigmoid rectal obstruction 2 to large cervical cancer metastatic adenocarcinoma s/p exploratory laparotomy 10/12 with SB resection, creation of ileostomy and lysis of adhesions postoperative pain anemia s/p 2 u PRBC transfusion acute renal failure/ATN - likely 2 to shock-resolved PLAN OF CARE MS floor extubated O2 HHN prn IVF diet as tolerated pain management antiemetic rpn wound care nurse for ostomy care teaching surgery follows , clearing for dc in few days peritoneal fluid pathology c/w with malignancy low residue diet, monitor tolerance, a/emetic prn awaiting for placement dc plan for Tuesday case discussed and evaluated by supervising physician Subjective Allergies: Coded Allergies: No Known Allergies (Unverified , 04/13/15) Subjective + intermittent postop pain, controlled with current regimen no leukocytosis, afebrile + good appetite, daughter at the bedside, visiting form another state Objective Last 24 Hour Vital Signs Date Time Temp Pulse Resp B/P Pulse Ox O2 Delivery O2 Flow Rate FiO2 10/23/16 12:05 98.1 91 20 97/58 97 Room Air 10/23/16 11:48 Nasal Cannula 2.0 28 10/23/16 11:48 96 Nasal Cannula 2.0 28 10/23/16 08:15 97.6 87 21 115/68 97 Room Air 10/23/16 04:00 97.6 90 18 112/68 100 Room Air 10/23/16 00:00 97.9 98 18 111/68 100 Room Air 10/22/16 20:00 98.6 81 17 120/57 100 Room Air 10/22/16 16:00 98.6 92 18 121/60 100 Room Air Intake and Output 10/22/16 10/23/16 19:00 07:00 Intake Total 1800 ml 550 ml Output Total 1000 ml 1250 ml Balance 800 ml -700 ml Intake Oral 1800 ml 550 ml Output Urine Total 500 ml Stool Total 500 ml 1250 ml # Voids 2 # Bowel Movements 2 Objective General Appearance: no acute distress, other - awake, alert, responsive, cachetic AA female HEENT: normocephalic, atraumatic, other - R jugular CL intact Respiratory/Chest: lungs clear, no respiratory distress, no accessory muscle use Cardiovascular: normal peripheral pulses, normal rate, regular rhythm, no JVD Abdomen: normal bowel sounds, other - incision with ivy 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, 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 , 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 C/D/I Genitourinary: normal external genitalia Extremities: no edema Neurologic/Psychiatric: no motor/sensory deficits, alert, oriented x 3, responsive Laboratory Tests 10/23/16 06:55: White Blood Count 9.7, Red Blood Count 2.97L, Hemoglobin 8.6L, Hematocrit 26.1L , Mean Corpuscular Volume 88, Mean Corpuscular Hemoglobin 29.0, Mean Corpuscular Hemoglobin Concent 33.0, Red Cell Distribution Width 16.3H, Platelet Count 323, Mean Platelet Volume 5.8L, Neutrophils (%) (Auto) , Lymphocytes (%) (Auto) , Monocytes (%) (Auto) , Eosinophils (%) (Auto) , Basophils (%) (Auto) , Differential Total Cells Counted 100, Neutrophils % ( Manual) 79H, Lymphocytes % (Manual) 20, Monocytes % (Manual) 0L, Eosinophils % ( Manual) 1, Basophils % (Manual) 0, Band Neutrophils 0, Platelet Estimate Adequate, Platelet Morphology Normal, Anisocytosis 1+, Sodium Level 143, Potassium Level 4.2, Chloride Level 107, Carbon Dioxide Level 22, Anion Gap 14, Blood Urea Nitrogen 9, Creatinine 0.6, Estimat Glomerular Filtration Rate > 60, Glucose Level 98, Calcium Level 8.2L Current Medications Medications (Trade) Dose Ordered Sig/Renay Route PRN Reason Start Time Stop Time Status Last Admin Dose Admin Acetaminophen (Tylenol) 650 mg Q4H PRN ORAL fever 10/17/16 21:00 11/16/16 20:59 10/22/16 09:38 Acetaminophen/ Hydrocodone Bitart ([place] 10/325) 1 ea Q4H PRN ORAL Mild Pain (Pain Scale 1-3) 10/22/16 10:45 10/29/16 10:44 10/23/16 08:13 Dextrose (Dextrose 50%) STAT PRN IV Hypoglycemia 10/17/16 21:00 11/16/16 20:59 Lorazepam (Ativan 2mg/ml 1ml) 2 mg Q4H PRN IV For Anxiety 10/22/16 10:30 10/29/16 23:59 Morphine Sulfate (Morphine Sulfate) 2 mg Q4H PRN IVP Moderate Pain (Pain Scale 4-6) 10/22/16 11:53 10/29/16 23:59 Morphine Sulfate (Morphine Sulfate) 4 mg Q4H PRN IVP Severe Pain (Pain Scale 7-10) 10/22/16 11:53 10/29/16 23:59 Nitroglycerin (Ntg) 0.4 mg Q5M X 3 DOSES PRN SL Prn Chest Pain 10/17/16 19:00 11/16/16 18:59 Ondansetron HCl (Zofran) 4 mg Q6H PRN ORAL Nausea & Vomiting 10/23/16 11:30 11/22/16 11:29 10/23/16 11:58 Temazepam (Restoril) 15 mg HSPRN PRN ORAL Insomnia 10/22/16 09:15 10/29/16 23:59 [facility] Oct 23, 2016 13:58
[2016-10-23 16:00] VITALS: BP 113/64
[2016-10-23 19:00] VITALS: BP 114/68
[2016-10-24 01:00] VITALS: BP 99/55
[2016-10-24] MEDS: Norco 10mg/325mg tab ORAL PRN ×5 (02:58→21:52)
[2016-10-24 04:00] VITALS: BP 115/65
[2016-10-24 08:00] VITALS: BP 99/53
--- NOTE | 2016-10-24 08:06 | General Progress Note ---
Assessment/Plan Problem List: (1) S/P exploratory laparotomy ICD Codes: Z98.890 - Other specified postprocedural states SNOMED: 20050006, 16231175, 898143157 (2) Anemia ICD Codes: D64.9 - Anemia SNOMED: 442924980 (3) SBO (small bowel obstruction) ICD Codes: K56.69 - SBO (small bowel obstruction) SNOMED: 177872585 (4) Metastatic adenocarcinoma ICD Codes: C79.9 - Secondary malignant neoplasm of unspecified site SNOMED: 6320170, 077488014 Assessment/Plan post op care fu labs supportive care fu surgery recs poor prognosis Subjective ROS Limited/Unobtainable: Yes Allergies: Coded Allergies: No Known Allergies (Unverified , 04/13/15) Subjective no event Objective Last 24 Hour Vital Signs Date Time Temp Pulse Resp B/P Pulse Ox O2 Delivery O2 Flow Rate FiO2 10/24/16 04:00 97.9 73 18 115/65 100 Room Air 10/24/16 01:00 98.0 96 18 99/55 99 Room Air 10/23/16 22:44 97.7 10/23/16 19:00 98.2 104 20 114/68 Room Air 10/23/16 16:00 97.7 93 20 113/64 Nasal Cannula 10/23/16 12:05 98.1 91 20 97/58 97 Room Air 10/23/16 11:48 Nasal Cannula 2.0 28 10/23/16 11:48 96 Nasal Cannula 2.0 28 10/23/16 08:15 97.6 87 21 115/68 97 Room Air Intake and Output 10/23/16 10/24/16 19:00 07:00 Intake Total 540 ml 550 ml Output Total 620 ml 800 ml Balance -80 ml -250 ml Intake Oral 540 ml 550 ml Stool Total 800 ml Other 620 ml # Voids 2 3 # Bowel Movements 1 1 Height (Feet): 5 Height (Inches): 1.00 Weight (Pounds): 100 General Appearance: no apparent distress EENT: normal ENT inspection Neck: supple Cardiovascular: normal rate Abdomen: other - post surgical Extremities: non-tender PERLA DAN Oct 24, 2016 08:06
[2016-10-24 12:02] VITALS: BP 110/57
--- NOTE | 2016-10-24 12:22 | General Progress Note ---
Assessment/Plan Status: stable Status Narrative stable renal status Assessment/Plan Acute renal failure likely due to septic Shock and Hypotension- - Septic shock - Acute respiratory failure- now extubated since 10/16 - SBO (small bowel obstruction) - Metastatic adenocarcinoma - Colonic obstruction - Sepsis - S/P exploratory laparotomy - HypoAlbuminemia Plan: no change- stable renal status ? Improve nutritional state ? Monitor renal parameters and urine out put Per consultants ? DC planning? Subjective ROS Limited/Unobtainable: No Constitutional: Reports: malaise Allergies: Coded Allergies: No Known Allergies (Unverified , 04/13/15) Objective Last 24 Hour Vital Signs Date Time Temp Pulse Resp B/P Pulse Ox O2 Delivery O2 Flow Rate FiO2 10/24/16 12:02 97.7 97 16 110/57 98 Room Air 10/24/16 08:00 98.1 89 15 99/53 100 Room Air 10/24/16 04:00 97.9 73 18 115/65 100 Room Air 10/24/16 01:00 98.0 96 18 99/55 99 Room Air 10/23/16 22:44 97.7 10/23/16 19:00 98.2 104 20 114/68 Room Air 10/23/16 16:00 97.7 93 20 113/64 Nasal Cannula Intake and Output 10/23/16 10/24/16 19:00 07:00 Intake Total 540 ml 550 ml Output Total 620 ml 800 ml Balance -80 ml -250 ml Intake Oral 540 ml 550 ml Stool Total 800 ml Other 620 ml # Voids 2 3 # Bowel Movements 1 1 Height (Feet): 5 Height (Inches): 1.00 Weight (Pounds): 100 General Appearance: no apparent distress Objective other physical exam not changed RISSA PERDOMO Oct 24, 2016 12:22
--- NOTE | 2016-10-24 13:29 | Pulmonology Progress Note ---
Assessment/Plan Assessment/Plan ASSESSMENT septic shock acute respiratory failure requiring intubation s/p extubation sigmoid rectal obstruction 2 to large cervical cancer metastatic adenocarcinoma s/p exploratory laparotomy 10/12 with SB resection, creation of ileostomy and lysis of adhesions postoperative pain anemia s/p 2 u PRBC transfusion acute renal failure/ATN - likely 2 to shock-resolved PLAN OF CARE MS floor extubated O2 HHN prn IVF diet as tolerated pain management antiemetic rpn wound care nurse for ostomy care teaching surgery follows , clearing for dc in few days peritoneal fluid pathology c/w with malignancy low residue diet, monitor tolerance, a/emetic prn awaiting for placement wound care nurse to teach re ostomy care and change of colostomy bag dc plan for Tuesday case discussed and evaluated by supervising physician Subjective Allergies: Coded Allergies: No Known Allergies (Unverified , 04/13/15) Subjective + intermittent postop pain, controlled with current regimen no leukocytosis, afebrile + good appetite, Objective Last 24 Hour Vital Signs Date Time Temp Pulse Resp B/P Pulse Ox O2 Delivery O2 Flow Rate FiO2 10/24/16 12:02 97.7 97 16 110/57 98 Room Air 10/24/16 08:00 98.1 89 15 99/53 100 Room Air 10/24/16 04:00 97.9 73 18 115/65 100 Room Air 10/24/16 01:00 98.0 96 18 99/55 99 Room Air 10/23/16 22:44 97.7 10/23/16 19:00 98.2 104 20 114/68 Room Air 10/23/16 16:00 97.7 93 20 113/64 Nasal Cannula Intake and Output 10/23/16 10/24/16 19:00 07:00 Intake Total 540 ml 550 ml Output Total 620 ml 800 ml Balance -80 ml -250 ml Intake Oral 540 ml 550 ml Stool Total 800 ml Other 620 ml # Voids 2 3 # Bowel Movements 1 1 Objective General Appearance: no acute distress, other - awake, alert, responsive, cachetic AA female HEENT: normocephalic, atraumatic, other - R jugular CL intact Respiratory/Chest: lungs clear, no respiratory distress, no accessory muscle use Cardiovascular: normal peripheral pulses, normal rate, regular rhythm, no JVD Abdomen: normal bowel sounds, other - incision with ivy RAMILA, ileostomy , dressing C/D/I Genitourinary: normal external genitalia Extremities: no edema Neurologic/Psychiatric: no motor/sensory deficits, alert, oriented x 3, responsive Current Medications Medications (Trade) Dose Ordered Sig/Renay Route PRN Reason Start Time Stop Time Status Last Admin Dose Admin Acetaminophen (Tylenol) 650 mg Q4H PRN ORAL fever 10/17/16 21:00 11/16/16 20:59 10/22/16 09:38 Acetaminophen/ Hydrocodone Bitart ([place] 10/325) 1 ea Q4H PRN ORAL Mild Pain (Pain Scale 1-3) 10/22/16 10:45 10/29/16 10:44 10/24/16 13:26 Dextrose (Dextrose 50%) STAT PRN IV Hypoglycemia 10/17/16 21:00 11/16/16 20:59 Lorazepam (Ativan 2mg/ml 1ml) 2 mg Q4H PRN IV For Anxiety 10/22/16 10:30 10/29/16 23:59 Morphine Sulfate (Morphine Sulfate) 2 mg Q4H PRN IVP Moderate Pain (Pain Scale 4-6) 10/22/16 11:53 10/29/16 23:59 Morphine Sulfate (Morphine Sulfate) 4 mg Q4H PRN IVP Severe Pain (Pain Scale 7-10) 10/22/16 11:53 10/29/16 23:59 Nitroglycerin (Ntg) 0.4 mg Q5M X 3 DOSES PRN SL Prn Chest Pain 10/17/16 19:00 11/16/16 18:59 Ondansetron HCl (Zofran) 4 mg Q6H PRN ORAL Nausea & Vomiting 10/23/16 11:30 11/22/16 11:29 10/23/16 11:58 Temazepam (Restoril) 15 mg HSPRN PRN ORAL Insomnia 10/22/16 09:15 10/29/16 23:59 Susanne Roberto NP (Vanchtein) Oct 24, 2016 13:29
[2016-10-24 16:00] VITALS: BP 105/59
[2016-10-24 19:00] VITALS: BP 110/66
[2016-10-25] VITALS: BP 104/57
[2016-10-25 04:00] VITALS: BP 109/57
[2016-10-25] MEDS: Norco 10mg/325mg tab ORAL PRN (05:59)
[2016-10-25 08:15] VITALS: BP 105/58
--- NOTE | 2016-10-25 09:16 | General Progress Note ---
Assessment/Plan Problem List: (1) S/P exploratory laparotomy ICD Codes: Z98.890 - Other specified postprocedural states SNOMED: 13403687, 43597418, 732083261 (2) Anemia ICD Codes: D64.9 - Anemia SNOMED: 983603140 (3) SBO (small bowel obstruction) ICD Codes: K56.69 - SBO (small bowel obstruction) SNOMED: 651458971 (4) Metastatic adenocarcinoma ICD Codes: C79.9 - Secondary malignant neoplasm of unspecified site SNOMED: 4847081, 085868776 Assessment/Plan post op care fu labs supportive care fu surgery recs poor prognosis repeat labs for tomorrow Subjective ROS Limited/Unobtainable: Yes Allergies: Coded Allergies: No Known Allergies (Unverified , 04/13/15) Subjective no event Objective Last 24 Hour Vital Signs Date Time Temp Pulse Resp B/P Pulse Ox O2 Delivery O2 Flow Rate FiO2 10/25/16 08:15 97.9 100 21 105/58 99 Room Air 10/25/16 06:58 97.5 10/25/16 04:00 97.5 100 18 109/57 100 Room Air 10/25/16 00:00 97.7 94 18 104/57 99 Room Air 10/24/16 19:00 98.3 100 20 110/66 Room Air 10/24/16 16:00 96.8 98 18 105/59 98 Room Air 10/24/16 12:02 97.7 97 16 110/57 98 Room Air Intake and Output 10/24/16 10/25/16 19:00 07:00 Intake Total 1800 ml 1130 ml Output Total 3000 ml 450 ml Balance -1200 ml 680 ml Intake Oral 1800 ml 1130 ml Output Urine Total 500 ml Stool Total 2500 ml 450 ml # Voids 1 7 # Bowel Movements 2 3 Height (Feet): 5 Height (Inches): 1.00 Weight (Pounds): 100 General Appearance: no apparent distress EENT: normal ENT inspection Neck: supple Cardiovascular: normal rate Respiratory/Chest: decreased breath sounds Abdomen: other - post surgical with colostomy Extremities: non-tender PERLA DAN Oct 25, 2016 09:16
--- NOTE | 2016-10-25 10:33 | General Progress Note ---
Progress Note Progress Note Surgery: Patient seen and examined at bedside. doing well. no pain. no n/v/f/c. tolerating oral diet. ostomy viable and functional. wounds c/d/i. Ostomy care and management D/C planning okay to d/c from surgical standpoint once has placement Follow up in clinic in 2 weeks post discharge. Toni Marquis Oct 25, 2016 10:33
[2016-10-25 12:15] VITALS: BP 104/63
--- NOTE | 2016-10-25 13:15 | General Progress Note ---
Assessment/Plan Status: stable Assessment/Plan Acute renal failure likely due to septic Shock and Hypotension- - Septic shock - Acute respiratory failure- now extubated since 10/16 - SBO (small bowel obstruction) - Metastatic adenocarcinoma - Colonic obstruction - Sepsis - S/P exploratory laparotomy - HypoAlbuminemia Plan: no change- stable renal status ? Improve nutritional state ? Monitor renal parameters and urine out put Per consultants ? DC planning? Subjective ROS Limited/Unobtainable: No Allergies: Coded Allergies: No Known Allergies (Unverified , 04/13/15) Objective Last 24 Hour Vital Signs Date Time Temp Pulse Resp B/P Pulse Ox O2 Delivery O2 Flow Rate FiO2 10/25/16 12:15 99.3 97 24 104/63 99 Room Air 10/25/16 08:15 97.9 100 21 105/58 99 Room Air 10/25/16 06:58 97.5 10/25/16 04:00 97.5 100 18 109/57 100 Room Air 10/25/16 00:00 97.7 94 18 104/57 99 Room Air 10/24/16 19:00 98.3 100 20 110/66 Room Air 10/24/16 16:00 96.8 98 18 105/59 98 Room Air Intake and Output 10/24/16 10/25/16 19:00 07:00 Intake Total 1800 ml 1130 ml Output Total 3000 ml 450 ml Balance -1200 ml 680 ml Intake Oral 1800 ml 1130 ml Output Urine Total 500 ml Stool Total 2500 ml 450 ml # Voids 1 7 # Bowel Movements 2 3 Height (Feet): 5 Height (Inches): 1.00 Weight (Pounds): 100 General Appearance: no apparent distress Objective other physical exam not changed RISSA PERDOMO Oct 25, 2016 13:14
[2016-10-25] MEDS ORDERED: NS 550ML IV ONE (13:59)
[2016-10-25] MEDS ORDERED: Sterile Water Irrig 1000ml IRRIG ONE (13:59)
[2016-10-25] MEDS ORDERED: D5 1/2NS 1000ml IV ONE (13:59)
--- NOTE | 2016-10-26 11:08 | Discharge Summary ---
Discharge Summary Hospital Course Date of Admission Oct 10, 2016 at 20:33 Date of Discharge Oct 25, 2016 at 14:00 Admitting Diagnosis abdominal pain, ileus vs obstruction HPI Castillo Bright is a 56 year old female who was admitted on Oct 10, 2016 at 20: 33 for Abdominal Pain, Ileus Vs Obstruction Hospital Course dc summary #[id number] Discharge Medications Continued Medications: Ondansetron (Zofran) 4 Mg Tablet 4 MG ORAL Q8HR PRN for Nausea & Vomiting, TAB Discharge Condition Upon Discharge: stable Discharge Disposition Patient was discharged to SNF/Subacute Facility(03) Discharge Diagnoses: Pardeep (Rickycrow),Susanne MCWILLIAMS Oct 26, 2016 11:08
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
== END 2016-10-25 14:00 | DRG 221 ==
LOC: EDBD 16:18 → EMR 16:25 → 4E 20:33 → EDBEDREQ 23:59 → 4E 10-11 01:41 → ICU 10-12 20:48 → 4E 10-17 19:09
PROC: 0DBB0ZZ Excision of Ileum, Open Approach (ICD-10-PCS; 2016-10-12)
PROC: 0DTH0ZZ Resection of Cecum, Open Approach (ICD-10-PCS; 2016-10-12)
PROC: 0D1M0Z4 Bypass Descending Colon to Cutaneous, Open Approach (ICD-10-PCS; 2016-10-12)
PROC: 0DN80ZZ Release Small Intestine, Open Approach (ICD-10-PCS; 2016-10-12)
PROC: 0DNN0ZZ Release Sigmoid Colon, Open Approach (ICD-10-PCS; 2016-10-12)
PROC: 0D1B0Z4 Bypass Ileum to Cutaneous, Open Approach (ICD-10-PCS; principal; 2016-10-12 12:30)
PROC: 5A1945Z Respiratory Ventilation, 24-96 Consecutive Hours (ICD-10-PCS; 2016-10-13)
DX: C78.5 Secondary malignant neoplasm of large intestine and rectum (principal); R65.21 Severe sepsis with septic shock; J96.00 Acute respiratory failure, unspecified whether with hypoxia or hypercapnia; N17.0 Acute kidney failure with tubular necrosis; K63.1 Perforation of intestine (nontraumatic); A41.9 Sepsis, unspecified organism; R18.0 Malignant ascites; E46 Unspecified protein-calorie malnutrition; R64 Cachexia; C53.9 Malignant neoplasm of cervix uteri, unspecified; D64.9 Anemia, unspecified; Z68.1 Body mass index [BMI] 19.9 or less, adult; K66.0 Peritoneal adhesions (postprocedural) (postinfection); Z91.19 Patient's noncompliance with other medical treatment and regimen; D25.9 Leiomyoma of uterus, unspecified; K56.69 Other intestinal obstruction
CPT/HCPCS: 36415; 36600; 71010; 74000; 74177; 76775; 80048; 80053; 81001; 82150; 82436; 82533; 82550; 82803; 82962; 82977; 83605; 83690; 83735; 83880; 83930; 83935; 84100; 84133; 84300; 84439; 84443; 84481; 84484; 84550; 85007; 85025; 85610; 85730; 86140; 86850; 86900; 86901; 86904; 86920; 89050; 93005; 94002; 94003; 94150; 94760; J2250; J2405; J8499